=== PATIENT | male | born 1950 | race Two or more races ===

== ENCOUNTER 2019-10-28 23:30 | Emergency (ER) | payer MEDICARE, MEDICAID ==
[~2019-10-28] VITALS: Ht 175.3 cm; Wt 81.6 kg
[2019-10-29 01:31] VITALS: BP 113/83
[2019-10-29 03:32] LABS: Basophils # (auto) 0 uL; Basophils % (auto) 1.3 % (0.0-2.0); Eosinophils # (auto) 0.2 uL; Eosinophils % (auto) 4.7 % (0.0-7.0); Hematocrit 34.2 % (41.0-53.0); Hemoglobin 11.3 g/dL (13.5-17.5); Lymphocytes # (auto) 1.2 uL; Lymphocytes % (auto) 36.1 % (10.0-50.0); Mean Corpuscular Hemoglobin 27.9 pg (28.0-32.0); Mean Corpuscular Hgb Conc. 33.1 g/dL (32.0-36.0); Mean Corpuscular Volume 84.5 fL (80.0-100.0); Monocytes # (auto) 0.3 uL; Monocytes % (auto) 8.8 % (0.0-12.0); Neutrophils # (auto) 1.7 uL; Neutrophils % (auto) 49.1 % (37.0-80.0); Nucleated Red Blood Cells % 0.2 %; Platelet Count (auto) 185 10^3/uL (140-450); Red Blood Cells 4.05 10^6/uL (4.5-5.90); Red Cell Distribution Width 14.3 % (11.8-14.3); White Blood Cell 3.4 10^3/uL (4.4-10.8)
[2019-10-29 03:51] LABS: Calcium 8.6 mg/dL (8.5-10.1); Potassium 3.6 mmol/L (3.5-5.1)
[2019-10-29 03:53] LABS: BUN/Creatinine Ratio 11.4
[2019-10-29] MEDS ORDERED: SODIUM CHLORIDE 0.9% 1,000 ML IV SCH (04:38)
[2019-10-29] MEDS ORDERED: HYDROcodone-ACET 5/325MG TAB PO PRN (04:45)
[2019-10-29] MEDS ORDERED: ACETAMINOPHEN 325 MG TAB PO PRN (04:45)
[2019-10-29] MEDS ORDERED: ALUM & MAG HYDROX-SIMETH LIQ(MAALOX) 30 ML PO PRN (04:45)
[2019-10-29] MEDS ORDERED: LORazepam 0.5 MG TAB PO PRN (04:45)
[2019-10-29] MEDS ORDERED: DOCUSATE SOD 100 MG CAP PO PRN (04:45)
[2019-10-29] MEDS ORDERED: ONDANSETRON HCL 4 MG/2 ML VIAL IV PRN (04:45)
[2019-10-29] MEDS ORDERED: DEXTROSE (50%) 50ML SYRG IV PRN (04:45)
[2019-10-29] MEDS ORDERED: MORPHINE SULFATE 4 MG/ML SYR/VIAL IV PRN (04:45)
[2019-10-29] MEDS ORDERED: ACCU-CHEK COMFORT CURVE STRIP VI SCH (08:00)
[2019-10-29] MEDS ORDERED: InsuLIN REG 1unit/0.01ml Soln (100units/ml) SC SCH (08:00)
== END 2019-10-29 06:47 | disposition left against medical advice (07) ==
LOC: ER 23:42 → EDSEX 23:42 → ER 10-29 06:47
DX: N28.89 Other specified disorders of kidney and ureter (principal)
CPT/HCPCS: 36415; 74176; 80048; 83690; 83735; 84484; 85025

== ENCOUNTER 2021-12-13 22:29 | Emergency (ER) | payer MEDICARE, MEDICAID ==
[~2021-12-13] VITALS: Ht 167.6 cm; Wt 63.5 kg
[2021-12-13 22:30] VITALS: BP 164/95
== END 2021-12-14 06:51 | disposition left against medical advice (07) ==
LOC: EDBD 22:29 → ER 22:31
DX: M79.10 Myalgia, unspecified site (principal); Z53.21 Procedure and treatment not carried out due to patient leaving prior to being seen by health care provider; W01.0XXA Fall on same level from slipping, tripping and stumbling without subsequent striking against object, initial encounter; Y93.89 Activity, other specified; Y92.89 Other specified places as the place of occurrence of the external cause; Y99.8 Other external cause status

== ENCOUNTER 2023-03-06 12:44 | Inpatient (IN) | payer MEDICARE, MEDICAID ==
[~2023-03-06] VITALS: Ht 175.3 cm; Wt 81.5 kg
[~2023-03-06 12:44] MED LIST: CIPR500T4 PO
[2023-03-06 13:40] LABS: Urine Bacteria FEW /hpf (None Seen); Urine Blood Negative /uL (Negative); Urine Hyaline Cast FEW /lpf (0 - 2); Urine Specific Gravity 1.018 (1.001-1.035); Urine WBC 110 /hpf (0 - 3)
[2023-03-06 13:56] LABS: Eosinophils # (auto) 0.1 10 ^3/uL (0-0.8); Hemoglobin 9.8 g/dL (13.5-17.5); Monocytes # (auto) 0.4 10 ^3/uL (0-1.3); Monocytes % (auto) 6.5 % (0.0-12.0)
[2023-03-06 13:57] LABS: Basophils # (auto) 0.1 10 ^3/uL (0-0.2); Basophils % (auto) 1.1 % (0.0-2.0); Eosinophils % (auto) 1.9 % (0.0-7.0); Hematocrit 29.3 % (41.0-53.0); Lymphocytes # (auto) 1.3 10 ^3/uL (0.4-5.4); Lymphocytes % (auto) 21.4 % (10.0-50.0); Mean Corpuscular Hemoglobin 27.2 pg (28.0-32.0); Mean Corpuscular Hgb Conc. 33.6 g/dL (32.0-36.0); Mean Corpuscular Volume 80.9 fL (80.0-100.0); Neutrophils # (auto) 4.2 10 ^3/uL (1.6-8.6); Neutrophils % (auto) 69.1 % (37.0-80.0); Nucleated Red Blood Cells % 0.2 %; Red Blood Cells 3.62 10^6/uL (4.5-5.90); Red Cell Distribution Width 17.1 % (11.8-14.3); White Blood Cell 6.1 10^3/uL (4.4-10.8)
[2023-03-06] MEDS ORDERED: cefTRIAXone 1GM/50ML D5W 50 ML IV ONE (14:15)
[2023-03-06 14:35] LABS: Albumin 2.8 g/dL (3.4-5.0); Calcium 8.7 mg/dL (8.5-10.1); Potassium 3.8 mmol/L (3.5-5.1)
[2023-03-06 14:38] LABS: Bilirubin, Total 0.6 mg/dL (0.2-1.0); Total Protein 8.2 g/dL (6.4-8.2)
[2023-03-06] MEDS ORDERED: NITROGLYCERIN 0.4 MG SL TAB SL PRN (16:00)
[2023-03-06] MEDS ORDERED: HYDROcodone-ACET 5/325MG TAB PO PRN (16:00)
[2023-03-06] MEDS ORDERED: ACETAMINOPHEN 325 MG TAB PO PRN (16:00)
[2023-03-06] MEDS ORDERED: MORPHINE SULFATE INJ 2 MG/ml SYRG IV PRN ×2 (16:00)
[2023-03-06 17:15] LABS: Cholesterol 162 mg/dL (< 200); HDL Cholesterol 71 mg/dL (40-59); LDL Cholesterol 85 mg/dL (< 100); Triglycerides 76 mg/dL (< 150)
[2023-03-07 05:00] VITALS: BP 156/94
[2023-03-07 06:33] LABS: Basophils # (auto) 0 10 ^3/uL (0-0.2); Eosinophils # (auto) 0.2 10 ^3/uL (0-0.8); Eosinophils % (auto) 3.2 % (0.0-7.0); Hematocrit 26.7 % (41.0-53.0); Lymphocytes # (auto) 1.4 10 ^3/uL (0.4-5.4); Lymphocytes % (auto) 29.1 % (10.0-50.0); Mean Corpuscular Hemoglobin 27.3 pg (28.0-32.0); Mean Corpuscular Hgb Conc. 33.7 g/dL (32.0-36.0); Mean Corpuscular Volume 81.2 fL (80.0-100.0); Monocytes # (auto) 0.5 10 ^3/uL (0-1.3); Monocytes % (auto) 10.5 % (0.0-12.0); Neutrophils # (auto) 2.7 10 ^3/uL (1.6-8.6); Neutrophils % (auto) 56.2 % (37.0-80.0); Nucleated Red Blood Cells % 0.3 %; Red Blood Cells 3.29 10^6/uL (4.5-5.90); Red Cell Distribution Width 16.8 % (11.8-14.3); White Blood Cell 4.8 10^3/uL (4.4-10.8)
[2023-03-07 07:25] LABS: Albumin 2.6 g/dL (3.4-5.0); Calcium 8.2 mg/dL (8.5-10.1); Potassium 3.8 mmol/L (3.5-5.1)
[2023-03-07 07:28] LABS: BUN/Creatinine Ratio 14.8 (10.0-20.0); Bilirubin, Total 0.7 mg/dL (0.2-1.0); Total Protein 6.8 g/dL (6.4-8.2)
[2023-03-07] MEDS ORDERED: cefTRIAXone 1GM/50ML D5W 50 ML IV SCH (09:00)
[2023-03-07] MEDS ORDERED: ENOXAPARIN SOD 40 MG/0.4 ML SYRINGE SC SCH (10:00)
[2023-03-07] MEDS ORDERED: HALOPERIDOL LACTATE 5 MG/ML INJ VIAL ONE (10:52)
[2023-03-07] MEDS ORDERED: HALOPERIDOL LACTATE 5 MG/ML INJ VIAL IM PRN (11:00)
== END 2023-03-07 11:45 | disposition left against medical advice (07) | DRG 463 ==
LOC: ER 12:44 → OVERFLOW 16:28 → CENTRAL 20:48
PROVIDERS: ADMIT Registered Nurse; ATTEND Registered Nurse
DX: N30.00 Acute cystitis without hematuria (principal); F03.90 Unspecified dementia, unspecified severity, without behavioral disturbance, psychotic disturbance, mood disturbance, and anxiety; Z53.29 Procedure and treatment not carried out because of patient's decision for other reasons; Z59.00 Homelessness unspecified; Z91.199 Patient's noncompliance with other medical treatment and regimen due to unspecified reason
CPT/HCPCS: 36415; 80053; 80061; 81001; 83036; 84443; 85025; 87040; 87086; 87088; 87186; 96365; A4565; G0378; J0696

== ENCOUNTER 2023-06-06 16:08 | Inpatient (IN) | payer MEDICARE, MEDICAID ==
[~2023-06-06] VITALS: Ht 175.3 cm; Wt 71.3 kg
[2023-06-06 17:54] LABS: Urine Bacteria NONE SEEN /hpf (None Seen); Urine Blood Negative /uL (Negative); Urine Hyaline Cast FEW /lpf (0 - 2); Urine Mucus FEW (None Seen); Urine Specific Gravity 1.021 (1.001-1.035); Urine WBC 4 /hpf (0 - 3)
[2023-06-06 23:24] LABS: Basophils # (auto) 0.1 10 ^3/uL (0-0.2); Basophils % (auto) 0.9 % (0.0-2.0); Eosinophils # (auto) 0.2 10 ^3/uL (0-0.8); Eosinophils % (auto) 3.5 % (0.0-7.0); Hematocrit 38.4 % (41.0-53.0); Hemoglobin 12.6 g/dL (13.5-17.5); Lymphocytes # (auto) 1.5 10 ^3/uL (0.4-5.4); Lymphocytes % (auto) 21.8 % (10.0-50.0); Mean Corpuscular Hemoglobin 27.5 pg (28.0-32.0); Mean Corpuscular Hgb Conc. 32.8 g/dL (32.0-36.0); Monocytes # (auto) 0.6 10 ^3/uL (0-1.3); Monocytes % (auto) 9.2 % (0.0-12.0); Neutrophils # (auto) 4.3 10 ^3/uL (1.6-8.6); Neutrophils % (auto) 64.6 % (37.0-80.0); Red Blood Cells 4.57 10^6/uL (4.5-5.90); Red Cell Distribution Width 13.7 % (11.8-14.3); White Blood Cell 6.7 10^3/uL (4.4-10.8)
[2023-06-06 23:41] LABS: Albumin 3.9 g/dL (3.4-5.0); Calcium 9.7 mg/dL (8.5-10.1); Magnesium 2.4 mg/dL (1.6-2.6); Potassium 3.6 mmol/L (3.5-5.1)
[2023-06-06 23:44] LABS: BUN/Creatinine Ratio 16.5 (10.0-20.0); Bilirubin, Total 0.6 mg/dL (0.2-1.0); Total Protein 9.1 g/dL (6.4-8.2)
[2023-06-07] MEDS ORDERED: HYDROcodone-ACET 10/325MG TAB PO ONE (01:15)
[2023-06-07] MEDS ORDERED: ASPirin 325 MG TAB PO ONE (01:15)
[2023-06-07 06:26] VITALS: PULSE 76; RESP 20; O2SAT 96
[2023-06-07 07:30] VITALS: RESP 20
[2023-06-07] MEDS ORDERED: SODIUM CHLORIDE 0.9% 1,000 ML IV ONE (09:30)
[2023-06-07] MEDS ORDERED: ONDANSETRON HCL 4 MG/2 ML VIAL IV ONE (10:00)
[2023-06-07] MEDS ORDERED: MORPHINE SULFATE INJ 2 MG/ml SYRG IV ONE (10:00)
[2023-06-07 13:28] LABS: Urine Bacteria NONE SEEN /hpf (None Seen); Urine Blood TRACE /uL (Negative); Urine WBC 2 /hpf (0 - 3)
[2023-06-07] MEDS ORDERED: DOCUSATE SOD 100 MG CAP PO PRN (13:45)
[2023-06-07] MEDS ORDERED: NITROGLYCERIN 0.4 MG SL TAB SL PRN (13:45)
[2023-06-07] MEDS ORDERED: SODIUM CHLORIDE 0.9% 1,000 ML IV SCH (13:45)
[2023-06-07] MEDS ORDERED: MORPHINE SULFATE INJ 2 MG/ml SYRG IV PRN (13:45)
[2023-06-07] MEDS ORDERED: LISINOPRIL 10 MG TAB PO ONE (13:45)
[2023-06-07] MEDS ORDERED: hydrALAZINE HCL 20 MG/ML VL IV PRN (13:45)
[2023-06-07] MEDS ORDERED: PANTOPRAZOLE 40 MG/10 ML VIAL INJ IV ONE (14:15)
[2023-06-07] MEDS: HYDROcodone-ACET 5/325MG TAB PO PRN ×3 (14:36→20:56)
[2023-06-07 19:23] VITALS: BP 133/69; PULSE 62; RESP 15; TEMP 99; O2SAT 92
[2023-06-07] MEDS: ONDANSETRON HCL 4 MG/2 ML VIAL IV PRN ×2 (19:40→20:57)
[2023-06-08] MEDS ORDERED: LISINOPRIL 10 MG TAB PO SCH (10:00)
[2023-06-08] MEDS ORDERED: PANTOPRAZOLE 40 MG/10 ML VIAL INJ IV SCH (10:00)
[2023-06-08] MEDS ORDERED: AZIT1POW PO (11:27)
== END 2023-06-07 21:04 | disposition left against medical advice (07) | DRG 199 ==
LOC: EDBD → ER 16:08 → TELE 06-07 13:39 → TELE-WESTW 06-07 21:20 → TELE 06-07 22:11
PROVIDERS: ADMIT Nurse Practitioner Family; ATTEND Nurse Practitioner Family
DX: I16.0 Hypertensive urgency (principal); N17.9 Acute kidney failure, unspecified; F03.93 Unspecified dementia, unspecified severity, with mood disturbance; D64.9 Anemia, unspecified; E86.0 Dehydration; F31.9 Bipolar disorder, unspecified; R91.8 Other nonspecific abnormal finding of lung field; I12.9 Hypertensive chronic kidney disease with stage 1 through stage 4 chronic kidney disease, or unspecified chronic kidney disease; N18.9 Chronic kidney disease, unspecified; R62.7 Adult failure to thrive; Z68.23 Body mass index [BMI] 23.0-23.9, adult; Z53.29 Procedure and treatment not carried out because of patient's decision for other reasons; Z83.3 Family history of diabetes mellitus
CPT/HCPCS: 36415; 71045; 74176; 76705; 80053; 81001; 83735; 83880; 84484; 85025; 93005; C9113; G0378; J2405

== ENCOUNTER → 2023-06-07 | Emergency (ER) | payer MEDICARE, MEDICAID ==
[~2023-06-07] VITALS: Ht 175.3 cm; Wt 72.1 kg
[~2023-06-07] MED LIST changes: +AZIT1POW PO; -CIPR500T4 PO
[2023-06-07 23:30] VITALS: BP 172/106; PULSE 122; RESP 18; O2SAT 99
== END | disposition left against medical advice (07) ==
LOC: EDBD 23:06 → ER 23:06
DX: R07.81 Pleurodynia (principal); Z53.21 Procedure and treatment not carried out due to patient leaving prior to being seen by health care provider
CPT/HCPCS: 71101

== ENCOUNTER 2023-09-20 16:44 | Emergency (ER) | payer MEDICARE, MEDICAID ==
[~2023-09-20] VITALS: Ht 175.3 cm; Wt 75.0 kg
[2023-09-20 18:16] LABS: Alanine Aminotransferase 19 U/L (7-40); Albumin 4.5 g/dL (3.2-4.8); Alkaline Phosphatase 88 U/L (46-116); Anion Gap 7 (5-15); Aspartate Aminotransferase 28 U/L (13-40); BUN/Creatinine Ratio 13.5 (10.0-20.0); Bilirubin, Total 0.5 mg/dL (0.2-1.0); Blood Urea Nitrogen 17 mg/dL (9-23); Calcium 9.5 mg/dL (8.7-10.4); Carbon Dioxide 27 mmol/L (20-30); Chloride 106 mmol/L (98-107); Glucose 135 mg/dL (74-106); Potassium 3.9 mmol/L (3.5-5.1); Sodium 140 mmol/L (136-145); Total Protein 7.4 g/dL (5.7-8.2)
[2023-09-20 18:33] LABS: Basophils # (auto) 0 10 ^3/uL (0-0.2); Basophils % (auto) 0.8 % (0.0-2.0); Eosinophils # (auto) 0.2 10 ^3/uL (0-0.8); Eosinophils % (auto) 4.5 % (0.0-7.0); Hematocrit 31.8 % (41.0-53.0); Hemoglobin 10.6 g/dL (13.5-17.5); Lymphocytes # (auto) 1.3 10 ^3/uL (0.4-5.4); Lymphocytes % (auto) 25.2 % (10.0-50.0); Mean Corpuscular Hemoglobin 29.2 pg (28.0-32.0); Mean Corpuscular Hgb Conc. 33.3 g/dL (32.0-36.0); Mean Corpuscular Volume 87.8 fL (80.0-100.0); Monocytes # (auto) 0.4 10 ^3/uL (0-1.3); Monocytes % (auto) 7.3 % (0.0-12.0); Neutrophils # (auto) 3.1 10 ^3/uL (1.6-8.6); Neutrophils % (auto) 62.2 % (37.0-80.0); Nucleated Red Blood Cells % 0.2 %; Red Blood Cells 3.61 10^6/uL (4.5-5.90); Red Cell Distribution Width 18.8 % (11.8-14.3)
[2023-09-20 18:44] LABS: INR 0.96 (0.9-1.15); Partial Thromboplastin Time 25.6 SEC (24.5-34.5); Prothrombin Time 10.1 sec (9.3-11.8)
[2023-09-20 22:45] VITALS: BP 160/82; PULSE 66; RESP 16; TEMP 97.8; O2SAT 98
== END 2023-09-20 22:56 | disposition home or self-care (01) ==
LOC: ER 16:44
DX: D64.9 Anemia, unspecified (principal); R07.89 Other chest pain; R05.9 Cough, unspecified; R06.02 Shortness of breath; I12.9 Hypertensive chronic kidney disease with stage 1 through stage 4 chronic kidney disease, or unspecified chronic kidney disease; E11.22 Type 2 diabetes mellitus with diabetic chronic kidney disease; N18.9 Chronic kidney disease, unspecified; J44.9 Chronic obstructive pulmonary disease, unspecified; F03.90 Unspecified dementia, unspecified severity, without behavioral disturbance, psychotic disturbance, mood disturbance, and anxiety; Z98.890 Other specified postprocedural states; Z87.891 Personal history of nicotine dependence; Z79.899 Other long term (current) drug therapy
CPT/HCPCS: 36415; 71046; 80053; 84484; 85025; 85610; 85730; 93005

== ENCOUNTER → 2023-10-17 | Outpatient (CLI) | payer MEDICARE, MEDICAID | END | disposition home or self-care (01) | LOC: XYW 13:34 | PROVIDERS: ATTEND Student in an Organized Health Care Education/Training Program | DX: I35.1 Nonrheumatic aortic (valve) insufficiency (principal); R06.02 Shortness of breath; I27.20 Pulmonary hypertension, unspecified | CPT/HCPCS: 93306 ==

== ENCOUNTER → 2023-11-16 | Outpatient (CLI) | payer MEDICARE, MEDICAID ==
[2023-11-16 13:36] LABS: Basophils # (auto) 0 10 ^3/uL (0-0.2); Basophils % (auto) 0.7 % (0.0-2.0); Eosinophils # (auto) 0.2 10 ^3/uL (0-0.8); Eosinophils % (auto) 4.1 % (0.0-7.0); Hematocrit 32.5 % (41.0-53.0); Hemoglobin 10.8 g/dL (13.5-17.5); Lymphocytes # (auto) 1.3 10 ^3/uL (0.4-5.4); Mean Corpuscular Hemoglobin 28.6 pg (28.0-32.0); Mean Corpuscular Hgb Conc. 33.3 g/dL (32.0-36.0); Mean Corpuscular Volume 86.1 fL (80.0-100.0); Monocytes # (auto) 0.5 10 ^3/uL (0-1.3); Monocytes % (auto) 10.1 % (0.0-12.0); Neutrophils # (auto) 2.6 10 ^3/uL (1.6-8.6); Neutrophils % (auto) 57.1 % (37.0-80.0); Nucleated Red Blood Cells % 0.1 %; Red Blood Cells 3.78 10^6/uL (4.5-5.90); Red Cell Distribution Width 14.4 % (11.8-14.3); White Blood Cell 4.5 10^3/uL (4.4-10.8)
[2023-11-16 13:53] LABS: Triglycerides 83 mg/dL (< 150)
[2023-11-16 13:54] LABS: % Iron Saturation 20.6 % (20-55); LDL Cholesterol 107 mg/dL (< 100)
[2023-11-16 13:55] LABS: Cholesterol 167 mg/dL (< 200); HDL Cholesterol 51 mg/dL (40-59); Prostate Specific Antigen 0.55 ng/mL (0.0-4.0)
[2023-11-16 13:59] LABS: Ferritin 242.1 ng/mL (22-322); Folate (Folic Acid) 10.08 ng/mL (>5.38)
== END | disposition home or self-care (01) ==
LOC: LAB 13:06
PROVIDERS: ATTEND Internal Medicine
DX: Z12.5 Encounter for screening for malignant neoplasm of prostate (principal); Z11.59 Encounter for screening for other viral diseases; Z13.1 Encounter for screening for diabetes mellitus; Z13.0 Encounter for screening for diseases of the blood and blood-forming organs and certain disorders involving the immune mechanism; I12.9 Hypertensive chronic kidney disease with stage 1 through stage 4 chronic kidney disease, or unspecified chronic kidney disease; E11.22 Type 2 diabetes mellitus with diabetic chronic kidney disease; N18.31 Chronic kidney disease, stage 3a; E78.5 Hyperlipidemia, unspecified; D64.9 Anemia, unspecified
CPT/HCPCS: 36415; 80061; 82306; 82607; 82728; 82746; 83036; 83540; 83550; 84153; 85025; 86803

== ENCOUNTER → 2023-11-16 | Outpatient (CLI) | payer MEDICARE, MEDICAID ==
[~2023-11-16] VITALS: Ht 175.3 cm; Wt 73.9 kg
[~2023-11-16] MED LIST changes: +ADENOSINE 62 MG in GIVE UN-DILUTED 0 ML IV ONE
== END | disposition home or self-care (01) ==
LOC: XYW 10:53
PROVIDERS: ATTEND Student in an Organized Health Care Education/Training Program
DX: R06.02 Shortness of breath (principal)
CPT/HCPCS: 78452; 93017; A9500; J0153

== ENCOUNTER → 2023-12-12 | Outpatient (CLI) | payer MEDICARE, MEDICAID ==
[~2023-12-12] MED LIST changes: -ADENOSINE 62 MG in GIVE UN-DILUTED 0 ML IV ONE
[2023-12-12 13:13] LABS: Basophils # (auto) 0 10 ^3/uL (0-0.2); Basophils % (auto) 0.8 % (0.0-2.0); Eosinophils # (auto) 0.4 10 ^3/uL (0-0.8); Eosinophils % (auto) 9.4 % (0.0-7.0); Hematocrit 35.6 % (41.0-53.0); Hemoglobin 11.7 g/dL (13.5-17.5); Lymphocytes # (auto) 2.2 10 ^3/uL (0.4-5.4); Lymphocytes % (auto) 46.5 % (10.0-50.0); Mean Corpuscular Hgb Conc. 32.8 g/dL (32.0-36.0); Mean Corpuscular Volume 85.5 fL (80.0-100.0); Monocytes # (auto) 0.4 10 ^3/uL (0-1.3); Monocytes % (auto) 8.5 % (0.0-12.0); Neutrophils # (auto) 1.6 10 ^3/uL (1.6-8.6); Neutrophils % (auto) 34.8 % (37.0-80.0); Nucleated Red Blood Cells % 0.2 %; Red Blood Cells 4.16 10^6/uL (4.5-5.90); Red Cell Distribution Width 14.1 % (11.8-14.3); White Blood Cell 4.7 10^3/uL (4.4-10.8)
== END | disposition home or self-care (01) ==
LOC: LAB 12:58
PROVIDERS: ATTEND Internal Medicine
DX: Z12.11 Encounter for screening for malignant neoplasm of colon (principal); D50.9 Iron deficiency anemia, unspecified; I70.0 Atherosclerosis of aorta
CPT/HCPCS: 36415; 82274; 85025

== ENCOUNTER 2023-12-24 20:03 | Emergency (ER) | payer MEDICARE, MEDICAID ==
[~2023-12-24] VITALS: Ht 175.3 cm; Wt 74.9 kg
[2023-12-24] MEDS ORDERED: NAP500T GT (22:15)
[2023-12-24 22:47] VITALS: BP 133/92; PULSE 87; RESP 19; TEMP 98.5; O2SAT 99
== END 2023-12-24 22:50 | disposition home or self-care (01) ==
LOC: ER 20:03
DX: M25.512 Pain in left shoulder (principal); R53.1 Weakness; J44.9 Chronic obstructive pulmonary disease, unspecified; E11.22 Type 2 diabetes mellitus with diabetic chronic kidney disease; I12.9 Hypertensive chronic kidney disease with stage 1 through stage 4 chronic kidney disease, or unspecified chronic kidney disease; N18.9 Chronic kidney disease, unspecified
CPT/HCPCS: 73030

== ENCOUNTER 2024-05-20 17:08 | Inpatient (IN) | payer MEDICARE, MEDICAID ==
[~2024-05-20] VITALS: Ht 175.3 cm; Wt 76.2 kg
[~2024-05-20 17:08] MED LIST changes: +NAP500T GT
[2024-05-20 18:06] LABS: Basophils # (auto) 0.1 10 ^3/uL (0-0.2); Basophils % (auto) 1.3 % (0.0-2.0); Eosinophils # (auto) 0.1 10 ^3/uL (0-0.8); Eosinophils % (auto) 3.2 % (0.0-7.0); Hematocrit 38.1 % (41.0-53.0); Hemoglobin 12.7 g/dL (13.5-17.5); Lymphocytes # (auto) 1.4 10 ^3/uL (0.4-5.4); Lymphocytes % (auto) 30.6 % (10.0-50.0); Mean Corpuscular Hemoglobin 28.2 pg (28.0-32.0); Mean Corpuscular Hgb Conc. 33.3 g/dL (32.0-36.0); Mean Corpuscular Volume 84.9 fL (80.0-100.0); Monocytes # (auto) 0.3 10 ^3/uL (0-1.3); Monocytes % (auto) 6.6 % (0.0-12.0); Neutrophils # (auto) 2.6 10 ^3/uL (1.6-8.6); Neutrophils % (auto) 58.3 % (37.0-80.0); Red Cell Distribution Width 14.1 % (11.8-14.3); White Blood Cell 4.5 10^3/uL (4.4-10.8)
[2024-05-20 18:10] LABS: Urine Bacteria FEW /hpf (None Seen); Urine Blood TRACE /uL (Negative); Urine Clarity Clear (Clear); Urine Color Yellow (Yellow); Urine Mucus FEW (None Seen); Urine Protein, UAD TRACE (Negative); Urine Specific Gravity 1.024 (1.001-1.035); Urine Urobilinogen Normal (Negative); Urine WBC 3 /hpf (0 - 3)
[2024-05-20 18:21] LABS: Alanine Aminotransferase 27 U/L (7-40); Albumin 4.6 g/dL (3.2-4.8); Alkaline Phosphatase 68 U/L (46-116); Anion Gap 7 (5-15); Aspartate Aminotransferase 42 U/L (13-40); BUN/Creatinine Ratio 12.8 (10.0-20.0); Bilirubin, Total 0.6 mg/dL (0.2-1.0); Blood Urea Nitrogen 18 mg/dL (9-23); Calcium 10.4 mg/dL (8.7-10.4); Carbon Dioxide 27 mmol/L (20-30); Chloride 106 mmol/L (98-107); Glucose 137 mg/dL (74-106); Lipase 31 U/L (12-53); Potassium 3.9 mmol/L (3.5-5.1); Sodium 140 mmol/L (136-145); Total Protein 8.1 g/dL (5.7-8.2)
[2024-05-20 22:00] VITALS: PULSE 65; RESP 16; O2SAT 97
[2024-05-20] MEDS: SODIUM CHLORIDE 0.9% 1,000 ML IV ONE (22:01)
[2024-05-20] MEDS: ONDANSETRON HCL 4 MG/2 ML VIAL IV ONE (22:01)
[2024-05-20] MEDS: MORPHINE SULFATE 4 MG/ML SYR/VIAL IV ONE (22:02)
[2024-05-21] MEDS ORDERED: ONDANSETRON HCL 4 MG/2 ML VIAL IV PRN (01:45)
[2024-05-21] MEDS ORDERED: DOCUSATE SOD 100 MG CAP PO PRN (01:45)
[2024-05-21] MEDS ORDERED: DEXTROSE (50%) 50ML SYRG IV PRN (01:45)
[2024-05-21] MEDS ORDERED: MORPHINE SULFATE INJ 2 MG/ml SYRG IV PRN ×2 (01:45→04:00)
[2024-05-21] MEDS ORDERED: NITROGLYCERIN 0.4 MG SL TAB SL PRN (04:00)
[2024-05-21] MEDS: diphenhdrAMINE HCL 50 MG/1 ML VL IV ONE ×2 (04:11→14:09)
[2024-05-21] MEDS: LORazepam 2MG/ML-1ML VIAL IV ONE ×2 (04:11→14:09)
[2024-05-21 04:24] VITALS: PULSE 114; RESP 17; O2SAT 96
[2024-05-21] MEDS: SODIUM CHLOR 0.9% PF (SALINE LOCK) 10ML VIAL/SYR IV SCH (05:18)
[2024-05-21] MEDS: InsuLIN REG 1unit/0.01ml Soln (100units/ml) SC SCH (06:00)
[2024-05-21] MEDS: ACCU-CHEK COMFORT CURVE STRIP VI SCH (06:14)
[2024-05-21 06:56] LABS: Basophils # (auto) 0.1 10 ^3/uL (0-0.2); Eosinophils # (auto) 0.1 10 ^3/uL (0-0.8); Eosinophils % (auto) 1.5 % (0.0-7.0); Hematocrit 37.1 % (41.0-53.0); Hemoglobin 12.1 g/dL (13.5-17.5); Lymphocytes # (auto) 1.3 10 ^3/uL (0.4-5.4); Lymphocytes % (auto) 24.6 % (10.0-50.0); Mean Corpuscular Hemoglobin 28.3 pg (28.0-32.0); Mean Corpuscular Hgb Conc. 32.6 g/dL (32.0-36.0); Mean Corpuscular Volume 86.9 fL (80.0-100.0); Monocytes # (auto) 0.4 10 ^3/uL (0-1.3); Monocytes % (auto) 7.9 % (0.0-12.0); Neutrophils # (auto) 3.4 10 ^3/uL (1.6-8.6); Nucleated Red Blood Cells % 0.1 %; Red Blood Cells 4.27 10^6/uL (4.5-5.90); Red Cell Distribution Width 14.3 % (11.8-14.3); White Blood Cell 5.2 10^3/uL (4.4-10.8)
[2024-05-21 07:11] LABS: Alanine Aminotransferase 24 U/L (7-40); Albumin 4.3 g/dL (3.2-4.8); Alkaline Phosphatase 68 U/L (46-116); Anion Gap 8 (5-15); Aspartate Aminotransferase 38 U/L (13-40); BUN/Creatinine Ratio 8.6 (10.0-20.0); Bilirubin, Total 0.5 mg/dL (0.2-1.0); Blood Urea Nitrogen 11 mg/dL (9-23); Calcium 9.9 mg/dL (8.5-10.1); Carbon Dioxide 22 mmol/L (20-30); Chloride 108 mmol/L (98-107); Glucose 120 mg/dL (74-106); Potassium 3.9 mmol/L (3.5-5.1); Sodium 138 mmol/L (136-145); Total Protein 7.4 g/dL (5.7-8.2)
[2024-05-21] MEDS ORDERED: OYST1TAB OR (09:25)
[2024-05-21] MEDS ORDERED: FERR-7 PO (09:25)
[2024-05-21] MEDS ORDERED: AMLO1TAB23 PO (09:25)
[2024-05-21 10:00] VITALS: PULSE 78; RESP 14; O2SAT 95
[2024-05-21] MEDS: metroNIDAZOLE 500MG/100ML 100 ML IV ONE (10:46)
[2024-05-21] MEDS: levoFLOXacin 500MG 100 ML IV SCH (10:52)
[2024-05-21] MEDS: diphenhdrAMINE HCL 50 MG/1 ML VL IV PRN (16:24)
[2024-05-21] MEDS: LORazepam 2MG/ML-1ML VIAL IV PRN (16:24)
[2024-05-21] MEDS: HALOPERIDOL LACTATE 5 MG/ML INJ VIAL IM ONE (16:25)
[2024-05-21] MEDS: metroNIDAZOLE 500MG/100ML 100 ML IV SCH (16:49)
[2024-05-21 19:30] VITALS: PULSE 64; RESP 12; O2SAT 97
[2024-05-21] MEDS: D5W/SOD CHLO 0.9% 1,000 ML IV SCH (22:41)
[2024-05-22 06:01] LABS: Basophils # (auto) 0 10 ^3/uL (0-0.2); Basophils % (auto) 0.6 % (0.0-2.0); Eosinophils # (auto) 0.2 10 ^3/uL (0-0.8); Eosinophils % (auto) 3.5 % (0.0-7.0); Hemoglobin 12.2 g/dL (13.5-17.5); Lymphocytes # (auto) 1.2 10 ^3/uL (0.4-5.4); Lymphocytes % (auto) 26.4 % (10.0-50.0); Mean Corpuscular Hemoglobin 28.3 pg (28.0-32.0); Mean Corpuscular Hgb Conc. 32.8 g/dL (32.0-36.0); Mean Corpuscular Volume 86.1 fL (80.0-100.0); Monocytes # (auto) 0.6 10 ^3/uL (0-1.3); Monocytes % (auto) 13.2 % (0.0-12.0); Neutrophils # (auto) 2.6 10 ^3/uL (1.6-8.6); Neutrophils % (auto) 56.3 % (37.0-80.0); Nucleated Red Blood Cells % 0.3 %; Red Cell Distribution Width 14.1 % (11.8-14.3); White Blood Cell 4.7 10^3/uL (4.4-10.8)
[2024-05-22] MEDS: ACETAMINOPHEN 325 MG TAB PO PRN (06:17)
[2024-05-22 06:20] LABS: Alanine Aminotransferase 22 U/L (7-40); Albumin 4.2 g/dL (3.2-4.8); Alkaline Phosphatase 61 U/L (46-116); Anion Gap 5 (5-15); Aspartate Aminotransferase 40 U/L (13-40); BUN/Creatinine Ratio 9.4 (10.0-20.0); Blood Urea Nitrogen 12 mg/dL (9-23); Carbon Dioxide 28 mmol/L (20-30); Chloride 108 mmol/L (98-107); Glucose 91 mg/dL (74-106); Potassium 3.8 mmol/L (3.5-5.1); Sodium 141 mmol/L (136-145); Total Protein 7.2 g/dL (5.7-8.2)
[2024-05-22 09:00] VITALS: PULSE 77; RESP 19; O2SAT 94
[2024-05-22 10:00] VITALS: TEMP 98.6
[2024-05-22] MEDS: cefTRIAXone 1GM/50ML D5W 50 ML IV SCH (10:19)
[2024-05-22] MEDS: HYDROcodone-ACET 5/325MG TAB PO PRN (10:22)
[2024-05-22 12:15] VITALS: BP 121/75; PULSE 70; RESP 14; O2SAT 98
[2024-05-22] MEDS ORDERED: LEVO500T91 PO (13:11)
[2024-05-22] MEDS ORDERED: MET500T PO (13:11)
[2024-05-22] MEDS ORDERED: IBUP1TAB4 PO (14:51)
== END 2024-05-22 16:07 | disposition home or self-care (01) | DRG 249 ==
LOC: ER 17:08 → OVERFLOW 05-21 03:50
PROVIDERS: ADMIT Nurse Practitioner Family; ATTEND Internal Medicine
DX: A09 Infectious gastroenteritis and colitis, unspecified (principal); N17.0 Acute kidney failure with tubular necrosis; G93.41 Metabolic encephalopathy; F03.90 Unspecified dementia, unspecified severity, without behavioral disturbance, psychotic disturbance, mood disturbance, and anxiety; E11.22 Type 2 diabetes mellitus with diabetic chronic kidney disease; I12.9 Hypertensive chronic kidney disease with stage 1 through stage 4 chronic kidney disease, or unspecified chronic kidney disease; J44.9 Chronic obstructive pulmonary disease, unspecified; K80.20 Calculus of gallbladder without cholecystitis without obstruction; N18.9 Chronic kidney disease, unspecified; I25.2 Old myocardial infarction; Z83.3 Family history of diabetes mellitus; Z79.2 Long term (current) use of antibiotics; Z79.899 Other long term (current) drug therapy
CPT/HCPCS: 36415; 70450; 71045; 74176; 80053; 81001; 82607; 83036; 83605; 83690; 83880; 84443; 84484; 85025; 93005; 96361; 96374; 96375; G0378; J1956; J2405; J3490

== ENCOUNTER 2024-05-26 05:18 | Inpatient (IN) | payer MEDICARE, MEDICAID ==
[2024-05-26] VITALS (7 sets, daily range): BP systolic 125–169; BP diastolic 75–92; PULSE 18–89; RESP 16–18; TEMP 98.3–98.8; O2SAT 96–98
[~2024-05-26] VITALS: Ht 182.9 cm; Wt 77.2 kg
[~2024-05-26 05:18] MED LIST changes: +AMLO1TAB23 PO; -AZIT1POW PO; +FERR-7 PO; +IBUP1TAB4 PO; +LEVO500T91 PO; +MET500T PO; +OYST1TAB OR
[2024-05-26] MEDS: HALOPERIDOL LACTATE 5 MG/ML INJ VIAL IM ONE (06:30)
[2024-05-26] MEDS: LORazepam 2MG/ML-1ML VIAL IM ONE (06:30)
[2024-05-26] MEDS: LORazepam 2MG/ML-1ML VIAL ONE (06:30)
[2024-05-26] MEDS: HALOPERIDOL LACTATE 5 MG/ML INJ VIAL ONE (06:31)
[2024-05-26] MEDS: SODIUM CHLORIDE 0.9% 1,000 ML IV ONE (08:55)
[2024-05-26 09:42] LABS: Basophils # (auto) 0 10 ^3/uL (0-0.2); Basophils % (auto) 0.6 % (0.0-2.0); Eosinophils # (auto) 0 10 ^3/uL (0-0.8); Eosinophils % (auto) 0.7 % (0.0-7.0); Hemoglobin 12.3 g/dL (13.5-17.5); Lymphocytes # (auto) 0.7 10 ^3/uL (0.4-5.4); Lymphocytes % (auto) 15.2 % (10.0-50.0); Mean Corpuscular Hemoglobin 28.3 pg (28.0-32.0); Mean Corpuscular Hgb Conc. 33.3 g/dL (32.0-36.0); Mean Corpuscular Volume 85.1 fL (80.0-100.0); Monocytes # (auto) 0.5 10 ^3/uL (0-1.3); Monocytes % (auto) 11.3 % (0.0-12.0); Neutrophils # (auto) 3.4 10 ^3/uL (1.6-8.6); Neutrophils % (auto) 72.2 % (37.0-80.0); Nucleated Red Blood Cells % 0.3 %; Red Blood Cells 4.34 10^6/uL (4.5-5.90); Red Cell Distribution Width 13.7 % (11.8-14.3); White Blood Cell 4.7 10^3/uL (4.4-10.8)
[2024-05-26 09:57] LABS: Alanine Aminotransferase 20 U/L (7-40); Albumin 4.4 g/dL (3.2-4.8); Alkaline Phosphatase 63 U/L (46-116); Anion Gap 10 (5-15); Aspartate Aminotransferase 37 U/L (13-40); BUN/Creatinine Ratio 10.4 (10.0-20.0); Bilirubin, Total 0.8 mg/dL (0.2-1.0); Blood Urea Nitrogen 14 mg/dL (9-23); Calcium 9.8 mg/dL (8.5-10.1); Carbon Dioxide 23 mmol/L (20-30); Chloride 107 mmol/L (98-107); Glucose 91 mg/dL (74-106); Potassium 3.5 mmol/L (3.5-5.1); Sodium 140 mmol/L (136-145); Total Protein 7.3 g/dL (5.7-8.2)
[2024-05-26] MEDS: ASPirin 81 mg TAB PO ONE (10:11)
[2024-05-26] MEDS ORDERED: SODIUM CHLORIDE 0.9% 1,000 ML IV SCH (11:15)
[2024-05-26] MEDS ORDERED: ALBUTEROL SULF 2.5 MG/0.5ML(0.5%) NEB SOLN NEB PRN (11:15)
[2024-05-26] MEDS ORDERED: NITROGLYCERIN 0.4 MG SL TAB SL PRN (11:15)
[2024-05-26] MEDS ORDERED: IPRATROPIUM BROM 0.5 MG/2.5ML INH SOL NEB PRN (11:15)
[2024-05-26] MEDS ORDERED: ONDANSETRON HCL 4 MG/2 ML VIAL IV PRN (11:15)
[2024-05-26] MEDS ORDERED: DOCUSATE SOD 100 MG CAP PO PRN (11:15)
[2024-05-26] MEDS ORDERED: MORPHINE SULFATE INJ 2 MG/ml SYRG IV PRN (11:15)
[2024-05-26] MEDS: metroNIDAZOLE 500MG/100ML 100 ML IV ONE (11:40)
[2024-05-26] MEDS: PANTOPRAZOLE 40 MG/10 ML VIAL INJ IV ONE (11:41)
[2024-05-26] MEDS: DICYCLOMINE HCL (10MG/ML) 2 ML AMPULE IM ONE (11:41)
[2024-05-26 11:51] LABS: Lipase 24 U/L (12-53)
[2024-05-26] MEDS: cefTRIAXone 1GM/50ML D5W 50 ML IV ONE (12:52)
[2024-05-26 16:43] LABS: Urine Bacteria None Seen /hpf (None Seen)
[2024-05-26 17:07] LABS: Urine Blood 1+ /uL (Negative); Urine Clarity Clear (Clear); Urine Color Yellow (Yellow); Urine Mucus FEW (None Seen); Urine Protein, UAD 1+ (Negative); Urine Specific Gravity 1.022 (1.001-1.035); Urine Urobilinogen Normal (Negative); Urine WBC 2 /hpf (0 - 3)
[2024-05-26] MEDS: DICYCLOMINE HCL 10 MG CAP PO SCH (18:32)
[2024-05-26] MEDS: SODIUM CHLORIDE 0.9% 1,000 ML IV SCH (18:35)
[2024-05-26] MEDS: metroNIDAZOLE 500MG/100ML 100 ML IV SCH (21:02)
[2024-05-26] MEDS: METOCLOPRAMIDE HCL 5MG/ml INJ 2ml VIAL IV PRN (22:12)
[2024-05-26] MEDS: MORPHINE SULFATE INJ 2 MG/ml SYRG IV PRN (22:47)
[2024-05-27] VITALS (7 sets, daily range): BP systolic 131–160; BP diastolic 82–94; PULSE 60–80; RESP 17–18; TEMP 97.9–99.7; O2SAT 93–98
[2024-05-27] MEDS: ONDANSETRON HCL 4 MG/2 ML VIAL IV PRN (05:56)
[2024-05-27 06:36] LABS: Basophils # (auto) 0 10 ^3/uL (0-0.2); Basophils % (auto) 0.8 % (0.0-2.0); Eosinophils # (auto) 0.1 10 ^3/uL (0-0.8); Eosinophils % (auto) 2.5 % (0.0-7.0); Hematocrit 34.5 % (41.0-53.0); Hemoglobin 11.4 g/dL (13.5-17.5); Lymphocytes % (auto) 25.4 % (10.0-50.0); Mean Corpuscular Hemoglobin 27.9 pg (28.0-32.0); Mean Corpuscular Hgb Conc. 32.9 g/dL (32.0-36.0); Mean Corpuscular Volume 84.8 fL (80.0-100.0); Monocytes # (auto) 0.5 10 ^3/uL (0-1.3); Monocytes % (auto) 12.8 % (0.0-12.0); Neutrophils # (auto) 2.3 10 ^3/uL (1.6-8.6); Neutrophils % (auto) 58.5 % (37.0-80.0); Nucleated Red Blood Cells % 0.2 %; Red Blood Cells 4.08 10^6/uL (4.5-5.90); Red Cell Distribution Width 13.5 % (11.8-14.3); White Blood Cell 3.9 10^3/uL (4.4-10.8)
[2024-05-27 06:47] LABS: Alanine Aminotransferase 16 U/L (7-40); Albumin 4.1 g/dL (3.2-4.8); Alkaline Phosphatase 56 U/L (46-116); Anion Gap 10 (5-15); Aspartate Aminotransferase 39 U/L (13-40); BUN/Creatinine Ratio 8.4 (10.0-20.0); Blood Urea Nitrogen 11 mg/dL (9-23); Calcium 9.5 mg/dL (8.5-10.1); Carbon Dioxide 22 mmol/L (20-30); Chloride 109 mmol/L (98-107); Glucose 74 mg/dL (74-106); Potassium 3.6 mmol/L (3.5-5.1); Sodium 141 mmol/L (136-145)
[2024-05-27 06:48] LABS: Bilirubin, Total 0.8 mg/dL (0.2-1.0); Total Protein 6.7 g/dL (5.7-8.2)
[2024-05-27] MEDS: cefTRIAXone 1GM/50ML D5W 50 ML IV SCH (09:43)
[2024-05-27] MEDS: PANTOPRAZOLE 40 MG/10 ML VIAL INJ IV SCH (09:44)
[2024-05-27] MEDS: amLODIPine BESYLATE 5 MG TAB PO SCH (13:02)
[2024-05-27] MEDS: LORazepam 2MG/ML-1ML VIAL IV PRN (23:03)
[2024-05-28 05:00] VITALS: BP 162/98; PULSE 81; RESP 18; TEMP 97.7; O2SAT 95
[2024-05-28 06:50] VITALS: O2SAT 99
[2024-05-28 09:16] VITALS: BP 162/105; PULSE 77; RESP 18; TEMP 98.3; O2SAT 97
[2024-05-28] MEDS ORDERED: LORazepam 2MG/ML-1ML VIAL IV ONE (10:00)
[2024-05-28 13:28] VITALS: BP 153/87; PULSE 76; RESP 18; TEMP 98; O2SAT 97
[2024-05-28 14:45] LABS: Basophils # (auto) 0.1 10 ^3/uL (0-0.2); Basophils % (auto) 1.3 % (0.0-2.0); Eosinophils # (auto) 0.2 10 ^3/uL (0-0.8); Eosinophils % (auto) 3.1 % (0.0-7.0); Hematocrit 34.7 % (41.0-53.0); Hemoglobin 12.1 g/dL (13.5-17.5); Lymphocytes # (auto) 1.3 10 ^3/uL (0.4-5.4); Lymphocytes % (auto) 23.5 % (10.0-50.0); Mean Corpuscular Hemoglobin 29.4 pg (28.0-32.0); Mean Corpuscular Hgb Conc. 34.8 g/dL (32.0-36.0); Mean Corpuscular Volume 84.5 fL (80.0-100.0); Monocytes # (auto) 0.6 10 ^3/uL (0-1.3); Monocytes % (auto) 11.1 % (0.0-12.0); Neutrophils # (auto) 3.4 10 ^3/uL (1.6-8.6); Red Blood Cells 4.11 10^6/uL (4.5-5.90); Red Cell Distribution Width 13.6 % (11.8-14.3); White Blood Cell 5.6 10^3/uL (4.4-10.8)
[2024-05-28] MEDS: PIPERACILLIN-TAZOB 3.375GM 100 ML IV SCH (14:55)
[2024-05-28 15:31] LABS: Anion Gap 15 (5-15); Carbon Dioxide 17 mmol/L (20-30); Chloride 107 mmol/L (98-107); Potassium 3.4 mmol/L (3.5-5.1); Sodium 139 mmol/L (136-145)
[2024-05-28 15:32] LABS: Calcium 9.9 mg/dL (8.7-10.4)
[2024-05-28 15:37] LABS: BUN/Creatinine Ratio 7.6 (10.0-20.0); Blood Urea Nitrogen 10 mg/dL (9-23); Glucose 120 mg/dL (74-106)
[2024-05-28] MEDS: HALOPERIDOL LACTATE 5 MG/ML INJ VIAL IM PRN (18:46)
[2024-05-28] MEDS: POTASSIUM EFFERVESENT TAB 25 MEQ GT ONE (19:15)
[2024-05-28] MEDS ORDERED: LIDOCAINE 5% TOPICAL PATCH TOP ONE (20:30)
[2024-05-28] MEDS: HALOPERIDOL LACTATE 5 MG/ML INJ VIAL IM ONE (21:16)
[2024-05-28] MEDS: DONEPEZIL HYDROCHLORIDE 5 MG TAB PO SCH (22:00)
[2024-05-28 22:17] VITALS: O2SAT 97
[2024-05-29 03:30] VITALS: BP 153/87; PULSE 76; RESP 20; O2SAT 97
[2024-05-29 09:00] VITALS: BP 152/97; PULSE 77; RESP 16; TEMP 97.9; O2SAT 97
[2024-05-29 10:08] LABS: Basophils # (auto) 0 10 ^3/uL (0-0.2); Basophils % (auto) 0.9 % (0.0-2.0); Eosinophils # (auto) 0.2 10 ^3/uL (0-0.8); Eosinophils % (auto) 4.2 % (0.0-7.0); Hematocrit 35.2 % (41.0-53.0); Lymphocytes % (auto) 26.1 % (10.0-50.0); Mean Corpuscular Hemoglobin 28.4 pg (28.0-32.0); Mean Corpuscular Hgb Conc. 33.9 g/dL (32.0-36.0); Mean Corpuscular Volume 83.6 fL (80.0-100.0); Monocytes # (auto) 0.4 10 ^3/uL (0-1.3); Monocytes % (auto) 10.3 % (0.0-12.0); Neutrophils # (auto) 2.3 10 ^3/uL (1.6-8.6); Neutrophils % (auto) 58.5 % (37.0-80.0); Nucleated Red Blood Cells % 0.4 %; Red Blood Cells 4.21 10^6/uL (4.5-5.90); Red Cell Distribution Width 13.9 % (11.8-14.3); White Blood Cell 3.9 10^3/uL (4.4-10.8)
[2024-05-29 10:21] LABS: Chloride 107 mmol/L (98-107); Sodium 141 mmol/L (136-145)
[2024-05-29 10:22] LABS: Anion Gap 10 (5-15); Calcium 9.8 mg/dL (8.5-10.1); Carbon Dioxide 24 mmol/L (20-30)
[2024-05-29] MEDS ORDERED: DONE5TAB11 PO (10:23)
[2024-05-29] MEDS ORDERED: AMOX500T86 PO (10:23)
[2024-05-29 10:27] LABS: BUN/Creatinine Ratio 7.9 (10.0-20.0); Blood Urea Nitrogen 10 mg/dL (9-23); Glucose 99 mg/dL (74-106)
[2024-05-29 11:19] VITALS: BP 152/97; PULSE 77; RESP 16; TEMP 97.9; O2SAT 97
[2024-05-29] MEDS ORDERED: QUET50TA PO (11:43)
== END 2024-05-29 11:32 | disposition home or self-care (01) | DRG 248 ==
LOC: ER 05:18 → EDBD 05:18 → OVERFLOW 11:11 → EAST 17:41
PROVIDERS: ADMIT Internal Medicine; ATTEND Emergency Medicine
DX: A04.9 Bacterial intestinal infection, unspecified (principal); G92.8 Other toxic encephalopathy; N17.9 Acute kidney failure, unspecified; K80.00 Calculus of gallbladder with acute cholecystitis without obstruction; D69.6 Thrombocytopenia, unspecified; E86.0 Dehydration; E11.22 Type 2 diabetes mellitus with diabetic chronic kidney disease; N18.9 Chronic kidney disease, unspecified; F03.90 Unspecified dementia, unspecified severity, without behavioral disturbance, psychotic disturbance, mood disturbance, and anxiety; D64.9 Anemia, unspecified; J44.9 Chronic obstructive pulmonary disease, unspecified; E87.6 Hypokalemia; M13.811 Other specified arthritis, right shoulder; I12.9 Hypertensive chronic kidney disease with stage 1 through stage 4 chronic kidney disease, or unspecified chronic kidney disease; Z79.899 Other long term (current) drug therapy; Z83.3 Family history of diabetes mellitus; E11.65 Type 2 diabetes mellitus with hyperglycemia
CPT/HCPCS: 36415; 74176; 76775; 80048; 80053; 81001; 83605; 83690; 84484; 85025; 87040; 87045; 87427; 87493; 93005; 96361; 96365; 96367; 96372; 96375; 99291; G0378; J2405; J2470; J2543; J3490

== ENCOUNTER 2024-08-08 22:47 | Inpatient (IN) | payer MEDICARE, MEDICAID ==
[~2024-08-08] VITALS: Ht 175.3 cm; Wt 75.4 kg
[~2024-08-08 22:47] MED LIST changes: +AMOX500T86 PO; +DONE5TAB11 PO; -LEVO500T91 PO; -MET500T PO; +QUET50TA PO
[2024-08-08 23:45] LABS: Basophils # (auto) 0.1 10 ^3/uL (0-0.2); Basophils % (auto) 0.7 % (0.0-2.0); Eosinophils # (auto) 0.1 10 ^3/uL (0-0.8); Eosinophils % (auto) 0.4 % (0.0-7.0); Hematocrit 39.4 % (41.0-53.0); Hemoglobin 13.2 g/dL (13.5-17.5); Lymphocytes # (auto) 0.8 10 ^3/uL (0.4-5.4); Lymphocytes % (auto) 6.4 % (10.0-50.0); Mean Corpuscular Hemoglobin 28.9 pg (28.0-32.0); Mean Corpuscular Hgb Conc. 33.6 g/dL (32.0-36.0); Mean Corpuscular Volume 86.2 fL (80.0-100.0); Monocytes # (auto) 0.7 10 ^3/uL (0-1.3); Monocytes % (auto) 5.2 % (0.0-12.0); Neutrophils # (auto) 11.6 10 ^3/uL (1.6-8.6); Neutrophils % (auto) 87.3 % (37.0-80.0); Nucleated Red Blood Cells % 0.1 %; Platelet Count (auto) 165 10^3/uL (140-450); Red Blood Cells 4.57 10^6/uL (4.5-5.90); Red Cell Distribution Width 15.1 % (11.8-14.3); White Blood Cell 13.3 10^3/uL (4.4-10.8)
[2024-08-08 23:58] LABS: Chloride 106 mmol/L (98-107); Potassium 3.9 mmol/L (3.5-5.1); Sodium 140 mmol/L (136-145)
[2024-08-08 23:59] LABS: Anion Gap 14 (5-15); Carbon Dioxide 20 mmol/L (20-30)
[2024-08-09] LABS: Calcium 10.3 mg/dL (8.7-10.4)
[2024-08-09 00:04] LABS: BUN/Creatinine Ratio 19.6 (10.0-20.0); Blood Urea Nitrogen 27 mg/dL (9-23); Glucose 63 mg/dL (74-106)
[2024-08-09] MEDS: ASPirin 81 mg TAB PO ONE (02:00)
[2024-08-09 02:37] VITALS: PULSE 70; RESP 17; O2SAT 97
[2024-08-09 02:40] LABS: Alanine Aminotransferase 21 U/L (7-40); Albumin 4.9 g/dL (3.2-4.8); Alkaline Phosphatase 73 U/L (46-116); Anion Gap 16 (5-15); Aspartate Aminotransferase 57 U/L (13-40); BUN/Creatinine Ratio 18.5 (10.0-20.0); Blood Urea Nitrogen 25 mg/dL (9-23); Calcium 10.2 mg/dL (8.7-10.4); Carbon Dioxide 16 mmol/L (20-30); Chloride 107 mmol/L (98-107); Glucose 66 mg/dL (74-106); Magnesium 1.9 mg/dL (1.6-2.6); Sodium 139 mmol/L (136-145)
[2024-08-09 02:41] LABS: Bilirubin, Total 1.3 mg/dL (0.2-1.0); Total Protein 8.3 g/dL (5.7-8.2)
[2024-08-09 03:11] LABS: Triglycerides 75 mg/dL (< 150)
[2024-08-09 03:12] LABS: LDL Cholesterol 116 mg/dL (< 100)
[2024-08-09 03:13] LABS: Cholesterol 180 mg/dL (< 200); HDL Cholesterol 52 mg/dL (40-59)
[2024-08-09 03:37] LABS: COVID19 ANTIGEN SOFIA FIA NEGATIVE (NEGATIVE); Rapid Influenza A Negative (Negative); Rapid Influenza B Negative (Negative)
[2024-08-09] MEDS ORDERED: ONDANSETRON HCL 4 MG/2 ML VIAL IV PRN (04:30)
[2024-08-09] MEDS ORDERED: NITROGLYCERIN 0.4 MG SL TAB SL PRN (04:30)
[2024-08-09] MEDS ORDERED: MORPHINE SULFATE INJ 2 MG/ml SYRG IV PRN (04:30)
[2024-08-09] MEDS ORDERED: ACETAMINOPHEN 325 MG TAB PO PRN (04:30)
[2024-08-09] MEDS: SODIUM CHLOR 0.9% PF (SALINE LOCK) 10ML VIAL/SYR IV SCH (06:13)
[2024-08-09 07:43] VITALS: PULSE 80; RESP 16; O2SAT 98
[2024-08-09 09:00] VITALS: BP 116/75; PULSE 82; RESP 17; TEMP 98.7; O2SAT 98
[2024-08-09] MEDS: ENOXAPARIN SOD 40 MG/0.4 ML SYRINGE SC SCH (10:00)
[2024-08-09] MEDS: ASPirin 81 mg TAB PO SCH (10:00)
[2024-08-09] MEDS: amLODIPine BESYLATE 5 MG TAB PO SCH (10:00)
[2024-08-09 10:31] VITALS: BP 116/75; PULSE 82; RESP 17; TEMP 98.7; O2SAT 98
[2024-08-09 10:49] LABS: Basophils # (auto) 0 10 ^3/uL (0-0.2); Basophils % (auto) 0.6 % (0.0-2.0); Eosinophils # (auto) 0 10 ^3/uL (0-0.8); Eosinophils % (auto) 0.5 % (0.0-7.0); Hemoglobin 11.5 g/dL (13.5-17.5); Lymphocytes # (auto) 1.6 10 ^3/uL (0.4-5.4); Lymphocytes % (auto) 20.2 % (10.0-50.0); Mean Corpuscular Hemoglobin 28.7 pg (28.0-32.0); Mean Corpuscular Hgb Conc. 33.9 g/dL (32.0-36.0); Mean Corpuscular Volume 84.6 fL (80.0-100.0); Monocytes # (auto) 0.6 10 ^3/uL (0-1.3); Monocytes % (auto) 7.9 % (0.0-12.0); Neutrophils # (auto) 5.7 10 ^3/uL (1.6-8.6); Neutrophils % (auto) 70.8 % (37.0-80.0); Nucleated Red Blood Cells % 0.1 %; Platelet Count (auto) 169 10^3/uL (140-450); Red Blood Cells 4.02 10^6/uL (4.5-5.90); Red Cell Distribution Width 14.9 % (11.8-14.3); White Blood Cell 8.1 10^3/uL (4.4-10.8)
[2024-08-09 12:18] VITALS: BP 155/92; PULSE 100; RESP 20; TEMP 98.7; O2SAT 99
[2024-08-09] MEDS ORDERED: QUEtiapine FUMARATE 25 MG TAB PO ONE (14:45)
[2024-08-09] MEDS ORDERED: ERGOCALCIFEROL 50,000 UNIT(1.25MG) CAP PO SCH (15:30)
[2024-08-09] MEDS ORDERED: ATORVASTATIN 20 MG TAB PO SCH (22:00)
[2024-08-09] MEDS ORDERED: QUEtiapine FUMARATE 25 MG TAB PO SCH (22:00)
[2024-08-09] MEDS ORDERED: DONEPEZIL HYDROCHLORIDE 5 MG TAB PO SCH ×2 (22:00)
== END 2024-08-09 15:22 | disposition left against medical advice (07) | DRG 190 ==
LOC: ER 22:47 → EDBD 22:47 → TELE 08-09 04:32 → TELE-WESTW 08-09 08:47
PROVIDERS: ADMIT Nurse Practitioner; ATTEND Internal Medicine Geriatric Medicine
DX: I21.4 Non-ST elevation (NSTEMI) myocardial infarction (principal); G93.41 Metabolic encephalopathy; E11.22 Type 2 diabetes mellitus with diabetic chronic kidney disease; F03.90 Unspecified dementia, unspecified severity, without behavioral disturbance, psychotic disturbance, mood disturbance, and anxiety; Z53.29 Procedure and treatment not carried out because of patient's decision for other reasons; I12.9 Hypertensive chronic kidney disease with stage 1 through stage 4 chronic kidney disease, or unspecified chronic kidney disease; J44.9 Chronic obstructive pulmonary disease, unspecified; N18.30 Chronic kidney disease, stage 3 unspecified; Z83.3 Family history of diabetes mellitus; Z79.4 Long term (current) use of insulin; Z79.899 Other long term (current) drug therapy; I24.9 Acute ischemic heart disease, unspecified
CPT/HCPCS: 36415; 71045; 80048; 80053; 80061; 82306; 82962; 83735; 84443; 84484; 85025; 87426; 87804; 93306; G0378

== ENCOUNTER 2025-03-18 23:31 | Inpatient (IN) | payer OTHER, MEDICAID ==
[~2025-03-18] VITALS: Ht 175.3 cm; Wt 77.3 kg
[2025-03-19] MEDS: KETOROLAC TROMETH 30 MG/ML 1ML VIAL IM ONE
[2025-03-19 00:18] LABS: Basophils # (auto) 0.1 10 ^3/uL (0-0.2); Basophils % (auto) 0.6 % (0.0-2.0); Eosinophils # (auto) 0.1 10 ^3/uL (0-0.8); Hematocrit 37.8 % (41.0-53.0); Hemoglobin 12.5 g/dL (13.5-17.5); Lymphocytes # (auto) 0.9 10 ^3/uL (0.4-5.4); Lymphocytes % (auto) 9.9 % (10.0-50.0); Mean Corpuscular Hemoglobin 28.7 pg (28.0-32.0); Mean Corpuscular Hgb Conc. 33.1 g/dL (32.0-36.0); Mean Corpuscular Volume 86.7 fL (80.0-100.0); Monocytes # (auto) 0.7 10 ^3/uL (0-1.3); Monocytes % (auto) 7.9 % (0.0-12.0); Neutrophils % (auto) 80.6 % (37.0-80.0); Nucleated Red Blood Cells % 0.3 %; Platelet Count (auto) 180 10^3/uL (140-450); Red Blood Cells 4.37 10^6/uL (4.5-5.90); Red Cell Distribution Width 14.6 % (11.8-14.3); White Blood Cell 8.7 10^3/uL (4.4-10.8)
[2025-03-19 00:32] LABS: Alanine Aminotransferase 21 U/L (7-40); Alkaline Phosphatase 74 U/L (46-116); Anion Gap 9 (5-15); Bilirubin, Total 0.9 mg/dL (0.2-1.0); Blood Urea Nitrogen 17 mg/dL (9-23); Calcium 10.2 mg/dL (8.7-10.4); Carbon Dioxide 24 mmol/L (20-31); Glucose 95 mg/dL (74-106); Sodium 141 mmol/L (136-145); Total Protein 7.9 g/dL (5.7-8.2)
[2025-03-19 00:33] LABS: Albumin 4.9 g/dL (3.2-4.8); Aspartate Aminotransferase 48 U/L (13-40); Chloride 108 mmol/L (98-107)
--- NOTE | 2025-03-19 01:25 | DVH ---
CHEST RADIOGRAPH Indication: cp Technique: Single frontal view of the chest was obtained COMPARISON: XY CHEST XRAY 1 VIEW on DOS: 08/08/24 FINDINGS: Lines and Tubes: None Lungs: Clear Pleura: No effusion. No pneumothorax. Cardiomediastinal contours: Unremarkable Bones: Unremarkable IMPRESSION: No acute disease.
--- NOTE | 2025-03-19 01:45 | ECG ---
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
--- NOTE | 2025-03-19 02:16 | ED.PDOC ---
History of Present Illness HPI Comments 74-year-old male complaining of body pain which started today. States he has been having intermittent cough with no phlegm. Intermittent chills. States he noticed his blood pressure was high at home. Nothing makes it better, nothing makes it worse. No nausea no vomiting no diarrhea. Chief Complaint: Body Pain Time Seen by MD: 23:42 Primary Care Provider: DEVIN Aranda Notes: Nurses Notes Allergies: Coded Allergies: NO KNOWN ALLERGIES (Unverified , 10/29/19) Home Meds Active Scripts Quetiapine Fumerate (Seroquel) 50 Mg Tab, 1 TAB PO QPM for 30 Days, #30 TAB 1 Refill Prov:KETAN TRAN MD 05/29/24 Donepezil Hydrochloride (Aricept) 5 Mg Tab, 5 MG PO QPM for 30 Days, #30 TAB 2 Refills Prov:KETAN TRAN MD 05/29/24 Amoxicillin & Pot Clavulanate (Augmentin) 500 Mg Tab, 1 TAB PO BID for 7 Days, #14 TAB Prov:KETAN TRAN MD 05/29/24 Ibuprofen Micronized (Ibuprofen) 400 Mg Tab, 400 MG PO BIDP PRN for 15 Days, #30 TAB Prov:KETAN TRAN MD 05/22/24 Naproxen (NAPROSYN TABLET) 500 Mg Tb, 500 MG GT BID PRN for 10 Days, #20 TAB Prov:REUBEN BAEZA MD 12/24/23 Reported Medications Ferrous Sulfate (Iron) 325 Mg Tab, 325 MG PO DAILY, TAB 05/21/24 Oyster Shell (OYSTER SHELL CALCIUM 500) 500 Mg Tab, 500 MG OR DAILY, TAB 05/21/24 Amlodipine Besylate (Amlodipine Besylate) 10 Mg Tab, 1 TAB PO DAILY, #30 TAB 5 Refills 05/21/24 Information Source: Patient Mode of Arrival: Ambulatory Past Medical History PAST MEDICAL HISTORY: CKF, COPD, Dementia, DM, HTN Surgical History: Denies all surgeries Family History Family History: Reviewed,noncontributory to illness, Family hx of DM Family History (Other): CKD Social History Smoker: Non-Smoker, Other Alcohol: Denies ETOH Use Drugs: Denies Drug Use Lives In: Home Constitutional: denies: chills, diaphoresis, fatigue, fever, malaise, sweats, weakness, others EENTM: reports: nose congestion; denies: blurred vision, double vision, ear bleeding, ear discharge, ear drainage, ear pain, ear ringing, eye pain, eye redness, hearing loss, mouth pain, mouth swelling, nasal discharge, nose bleeding, nose pain, photophobia, tearing, throat pain, throat swelling, voice changes, others Respiratory: reports: cough, shortness of breath; denies: hemoptysis, orthopnea, SOB at rest, SOB with excertion, stridor, wheezing, others Cardiovascular: denies: chest pain, dizzy spells, diaphoresis, Dyspnea on exertion, edema, irregular heart beat, left arm pain, lightheadedness, palpitations, PND, syncope, others Gastrointestinal: denies: abdomen distended, abdominal pain, blood streaked bowels, constipated, diarrhea, dysphagia, difficulty swallowing, hematemesis, melena, nausea, poor appetite, poor fluid intake, rectal bleeding, rectal pain, vomiting, others Genitourinary: denies: burning, dysuria, flank pain, frequency, hematuria, incontinence, penile discharge, penile sore, pain, testicle pain, testicle swelling, urgency, others Neurological: denies: dizziness, fainting, headache, left sided numbness, left sided weakness, numbness, paresthesia, pre-existing deficit, right sided numbness, right sided weakness, seizure, speech problems, tingling, tremors, weakness, others Musculoskeletal: denies: back pain, gout, joint pain, joint swelling, muscle pain, muscle stiffness, neck pain, others Integumetry: denies: bruises, change in color, change in hair/nails, dryness, laceration, lesions, lumps, rash, wounds, others Allergic/Immunocompromised: denies: Difficulty Healing, Frequent Infections, Hives, Itching, others Hematologic/Lymphatic: denies: anemia, blood clots, easy bleeding, easy bruising, swollen glands, others Endocrine: denies: excessive hunger, excessive sweating, excessive thirst, excessive urination, flushing, intolerance to cold, intolerance to heat, unexplained weight gain, unexplained weight loss, others Psychiatric: denies: anxiety, bipolar disorder, depression, hopeless, panic disorder, schizophrenia, sleepless, suicidal, others Physical Exam General Appearance: No Apparent Distress, Normal HEENT: Normal ENT Inspection, Pharynx Normal, TMs Normal Neck: Full Range of Motion, Non-Tender, Normal, Normal Inspection Respiratory: Chest Non-Tender, Lungs Clear, No Accessory Muscle Use, No Respiratory Distress, Normal Breath Sounds Cardiovascular: No Edema, No JVD, No Murmur, No Gallop, Normal Peripheral Pulses, Regular Rate/Rhythm Breast Exam: Deferred Gastrointestinal: No Organomegaly, Non Tender, No Pulsatile Mass, Normal Bowel Sounds, Soft Genitalia: Deferred Pelvic: Deferred Rectal: Deferred Extremities: No calf tenderness, Normal capillary refill, Normal inspection, Normal range of motion, Non-tender, No pedal edema Musculoskeletal : Apperance: Normal Neurologic: Alert, director records management II-XII nml as Tested, No Motor Deficits, Normal Affect, Normal Mood, No Sensory Deficits Cerebellar Function: Normal Reflexes: Normal Skin: Dry, Normal Color, Warm Lymphatic: No Adenopathy Was a procedure done? Was a procedure done?: No Differential Dx Considerations may include: CAD, MD, ACS, pneumonia, X-Ray, Labs, Meds, VS Vital Signs Date Time Temp Pulse Resp B/P (MAP) Pulse Ox O2 Delivery O2 Flow Rate FiO2 03/18/25 23:45 99.1 88 18 161/106 (124) 98 99.1 Lab Test 03/19/25 01:20 03/19/25 00:01 Range/Units Troponin I High Sensitivity Pending 110 *H </=54 ng/L White Blood Count 8.7 4.4-10.8 10^3/uL Red Blood Count 4.37 L 4.5-5.90 10^6/uL Hemoglobin 12.5 L 13.5-17.5 g/dL Hematocrit 37.8 L 41.0-53.0 % Mean Corpuscular Volume 86.7 80.0-100.0 fL Mean Corpuscular Hemoglobin 28.7 28.0-32.0 pg Mean Corpuscular Hemoglobin Concent 33.1 32.0-36.0 g/dL Red Cell Distribution Width 14.6 H 11.8-14.3 % Platelet Count 180 140-450 10^3/uL Mean Platelet Volume 7.9 6.9-10.8 fL Neutrophils (%) (Auto) 80.6 H 37.0-80.0 % Lymphocytes (%) (Auto) 9.9 L 10.0-50.0 % Monocytes (%) (Auto) 7.9 0.0-12.0 % Eosinophils (%) (Auto) 1.0 0.0-7.0 % Basophils (%) (Auto) 0.6 0.0-2.0 % Neutrophils # (Auto) 7.0 1.6-8.6 10 ^3/uL Lymphocytes # (Auto) 0.9 0.4-5.4 10 ^3/uL Monocytes # (Auto) 0.7 0-1.3 10 ^3/uL Eosinophils # (Auto) 0.1 0-0.8 10 ^3/uL Basophils # (Auto) 0.1 0-0.2 10 ^3/uL Nucleated Red Blood Cells 0.3 % Sodium Level 141 136-145 mmol/L Potassium Level 4.0 3.5-5.1 mmol/L Chloride Level 108 H 98-107 mmol/L Carbon Dioxide Level 24 20-31 mmol/L Anion Gap 9 5-15 Blood Urea Nitrogen 17 9-23 mg/dL Creatinine 1.21 0.700-1.30 mg/dL Glomerular Filtration Rate Calc 62 >90 mL/min BUN/Creatinine Ratio 14.0 10.0-20.0 Serum Glucose 95 74-106 mg/dL Calcium Level 10.2 8.7-10.4 mg/dL Total Bilirubin 0.9 0.2-1.0 mg/dL Aspartate Amino Transferase (AST) 48 H 13-40 U/L Alanine Aminotransferase (ALT) 21 7-40 U/L Alkaline Phosphatase 74 46-116 U/L B-Type Natriuretic Peptide 169.56 0-100 pg/mL Total Protein 7.9 5.7-8.2 g/dL Albumin 4.9 H 3.2-4.8 g/dL Current Medications Medications (Trade) Dose Ordered Sig/Tricia Route Start Time Stop Time Status Last Admin Ketorolac Tromethamine (Toradol Injection) 30 mg ONCE ONCE IM 03/19/25 00:00 03/19/25 00:01 DC 03/19/25 00:00 X-Ray, Labs, Meds, VS Comment Patient will be admitted for ACS, non-STEMI Aspirin given, and metoprolol given Recommend cardiology consult in the morning Imaging: X-rays and CT scans were reviewed and interpreted by this provider, imaging shows no fractures and no pathological disease. Pending radiology review. Laboratory: Labs reviewed and interpreted by this provider. Patient has prior medical visits reviewed. Med reconciliation performed Vital signs reviewed Time of 1ST Reevaluation: 02:15 Reevaluation 1ST: Unchanged Patient Education/Counseling: Diagnosis, Treatment Family Education/Counseling: Diagnosis Departure 1 Departure Time of Disposition: 02:14 Impression: Primary Impression: ACS (acute coronary syndrome) Disposition: 09 ADMITTED INPATIENT Condition: Stable Critical Care Note Critical Care Time?: No Stability Stability form required: No Heart Score Heart Score: Heart Score Response (Comments) Value History Slightly Suspicious 0 EKG Normal 0 Age >65 2 Risk Factors >3 or Hx ASHD 2 Troponin 1-2 x's Normal limit 1 Total 5 BIBI ZEPEDA Mar 19, 2025 02:16
[2025-03-19] MEDS: ASPirin 325 MG TAB PO ONE (03:39)
[2025-03-19] MEDS: METOPROLOL TARTRATE 1MG/1ML-5ML VIAL IV ONE (03:40)
[2025-03-19 05:00] VITALS: PULSE 80; RESP 13; O2SAT 96
[2025-03-19] MEDS ORDERED: MORPHINE SULFATE INJ 2 MG/ml SYRG IV PRN (05:00)
[2025-03-19] MEDS ORDERED: NITROGLYCERIN 0.4 MG SL TAB SL PRN (05:00)
[2025-03-19] MEDS ORDERED: ONDANSETRON HCL 4 MG/2 ML VIAL IV PRN (05:00)
--- NOTE | 2025-03-19 05:08 | DVHHP2 ---
Admitting Diagnosis: Elevated Troponin History of Present Illness History Source: Patient Exam Limitations: Other (Dementia) HPI Mr. Juany Amaral is a 74 yo male with known history of dementia, COPD, CKF, DM, Hypertension who presents with a chief complaint. Patient is a poor historian due to his dementia. He reports he brought himself to the hospital because of "pain all over" when asked if he has chest pain he reports " all over ". Patient denies dyspnea, chest pain, headaches, dizziness. Patient admitted for further evaluation. Home Meds Active Scripts Quetiapine Fumerate (Seroquel) 50 Mg Tab, 1 TAB PO QPM for 30 Days, #30 TAB 1 Refill Prov:KETAN TRAN MD 05/29/24 Donepezil Hydrochloride (Aricept) 5 Mg Tab, 5 MG PO QPM for 30 Days, #30 TAB 2 Refills Prov:KETAN TRAN MD 05/29/24 Amoxicillin & Pot Clavulanate (Augmentin) 500 Mg Tab, 1 TAB PO BID for 7 Days, #14 TAB Prov:KETAN TRAN MD 05/29/24 Ibuprofen Micronized (Ibuprofen) 400 Mg Tab, 400 MG PO BIDP PRN for 15 Days, #30 TAB Prov:KETAN TRAN MD 05/22/24 Naproxen (NAPROSYN TABLET) 500 Mg Tb, 500 MG GT BID PRN for 10 Days, #20 TAB Prov:REUBEN BAEZA MD 12/24/23 Reported Medications Ferrous Sulfate (Iron) 325 Mg Tab, 325 MG PO DAILY, TAB 05/21/24 Oyster Shell (OYSTER SHELL CALCIUM 500) 500 Mg Tab, 500 MG OR DAILY, TAB 05/21/24 Amlodipine Besylate (Amlodipine Besylate) 10 Mg Tab, 1 TAB PO DAILY, #30 TAB 5 Refills 05/21/24 Past Medical History Cardiac: HTN Pulmonary: COPD Central Nervous System: Dementia GI: No pertinent Hx Hemotology/Oncology: No pertinent Hx Hepatobiliary: No pertinent Hx Psychiatric: No pertinent Hx Musculoskeletal: No pertinent Hx Rheumotologic: No pertinent Hx Infectious Disease: No peritnent Hx ENT: No pertinent Hx Renal/: CKD Endocrine: NIDDM Dermatology: No pertinent Hx Patient Family History: Diabetes mellitus Review of Systems Constitutional: Other (generalized pain) Ears, Nose, & Throat: No symptom reported Eyes: No symptom reported Pulmonary/Respiratory: No symptom reported Cardiovascular: No symptom reported Gastrointestinal: No symptom reported Genitourinary: No symptom reported Musculoskeletal: No symptom reported Skin: No symptom reported Psychiatric: No symptom reported Endocrine: No symptom reported Hemotologic/Lymphatic: No symptom reported H&P Exam Vital Signs Vital Signs Date Time Temp Pulse Resp B/P (MAP) Pulse Ox O2 Delivery O2 Flow Rate FiO2 03/19/25 01:43 84 03/18/25 23:45 99.1 18 161/106 (124) 98 99.1 General Appeara: Well developed, Well nourished, Normal Appearance Head Exam: Normal inspection Neck Exam: Normal inspection, Non-tender, Normal alignment Eye Exam: bilateral eye Normal inspection, bilateral eye PERRL, bilateral eye EOMI Ear Exam: bilateral ear Auricle normal Nasal Exam: Normal inspection Mouth: Normal Inspection Pulmonary/Respiratory: Normal inspection, Normal breath sounds, Chest non- tender, Lungs clear Cardiovascular/Chest: Normal inspection, Regular rate, Normal Rhythm Peripheral Pulses: 2+ dorsalis pedis (R), 2+ dorsalis pedis (L), 2+ Radial (R), 2+ Radial (L) Abdominal Exam: Normal bowel sounds, Soft, No tenderness Rectal Exam: Deferred Male Genital Exam: Not done Tendon/ Neuro: Normal sensation, Normal motor function 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 Exam: Normal hearing, Normal speech, PERRL Neuro/Mental St: Alert, Oriented Appearance: Appropriate appearance, Memory impairment Eye contact/ Speech: Cooperative, Good eye contact, Normal speech Thoughts/Psych: Other (Dementia) Skin Exam: Normal inspection, Normal color, Warm/dry Labs/Xrays Labs Test 03/19/25 03:00 03/19/25 00:01 Range/Units Troponin I High Sensitivity 124 *H </=54 ng/L White Blood Count 8.7 4.4-10.8 10^3/uL Red Blood Count 4.37 L 4.5-5.90 10^6/uL Hemoglobin 12.5 L 13.5-17.5 g/dL Hematocrit 37.8 L 41.0-53.0 % Mean Corpuscular Volume 86.7 80.0-100.0 fL Mean Corpuscular Hemoglobin 28.7 28.0-32.0 pg Mean Corpuscular Hemoglobin Concent 33.1 32.0-36.0 g/dL Red Cell Distribution Width 14.6 H 11.8-14.3 % Platelet Count 180 140-450 10^3/uL Mean Platelet Volume 7.9 6.9-10.8 fL Neutrophils (%) (Auto) 80.6 H 37.0-80.0 % Lymphocytes (%) (Auto) 9.9 L 10.0-50.0 % Monocytes (%) (Auto) 7.9 0.0-12.0 % Eosinophils (%) (Auto) 1.0 0.0-7.0 % Basophils (%) (Auto) 0.6 0.0-2.0 % Neutrophils # (Auto) 7.0 1.6-8.6 10 ^3/uL Lymphocytes # (Auto) 0.9 0.4-5.4 10 ^3/uL Monocytes # (Auto) 0.7 0-1.3 10 ^3/uL Eosinophils # (Auto) 0.1 0-0.8 10 ^3/uL Basophils # (Auto) 0.1 0-0.2 10 ^3/uL Nucleated Red Blood Cells 0.3 % Sodium Level 141 136-145 mmol/L Potassium Level 4.0 3.5-5.1 mmol/L Chloride Level 108 H 98-107 mmol/L Carbon Dioxide Level 24 20-31 mmol/L Anion Gap 9 5-15 Blood Urea Nitrogen 17 9-23 mg/dL Creatinine 1.21 0.700-1.30 mg/dL Glomerular Filtration Rate Calc 62 >90 mL/min BUN/Creatinine Ratio 14.0 10.0-20.0 Serum Glucose 95 74-106 mg/dL Calcium Level 10.2 8.7-10.4 mg/dL Total Bilirubin 0.9 0.2-1.0 mg/dL Aspartate Amino Transferase (AST) 48 H 13-40 U/L Alanine Aminotransferase (ALT) 21 7-40 U/L Alkaline Phosphatase 74 46-116 U/L B-Type Natriuretic Peptide 169.56 0-100 pg/mL Total Protein 7.9 5.7-8.2 g/dL Albumin 4.9 H 3.2-4.8 g/dL Assessment/Plan Problem List: (1) ACS (acute coronary syndrome) (2) Elevated troponin Plan This is a 74 yo male with known history of CKF, COPD, DM, hypertension, Dementia who presents to the hospital with body aches. Patient was found to have 1. Elevated troponin levels 2. Acute coronary syndrome 3. Elevated BNP 4. Hypertension Plan: Admit Telemetry Cardiology consultation, 2D echocardiogram, serial troponin levels, ASA, Statin Lovenox SC Lipid panel Antihypertensive as needed for optimal blood pressure control Reconcile home medications as needed Discussed all above with patient. Answered all questions. Discussed assessment and care plan with supervising MD. Patient's chart is reviewed and discussed with the nurse practitioner. I agree with the nurse practitioner's evaluation, documentation, assessment and care plan as outlined. Cardiology consultation is appreciated. Plan discussed with: Patient, Other Code Visit Code Visit Total Time (mins): 45 AMNA MORALES Mar 19, 2025 05:08 AYLA RAMIREZ MD Mar 19, 2025 12:11
[2025-03-19] MEDS ORDERED: hydrALAZINE HCL 20 MG/ML VL IV PRN (05:15)
[2025-03-19 05:31] LABS: INR 1.05 (0.9-1.15); Prothrombin Time 11.1 sec (9.3-11.8)
[2025-03-19] MEDS: ENOXAPARIN SOD 80 MG/0.8ML SYRINGE SC SCH (05:53)
[2025-03-19] MEDS: amLODIPine BESYLATE 5 MG TAB PO SCH (05:54)
[2025-03-19] MEDS: ACETAMINOPHEN 325 MG TAB PO PRN (06:17)
[2025-03-19 06:40] LABS: Triglycerides 112 mg/dL (< 150)
[2025-03-19 06:42] LABS: HDL Cholesterol 47 mg/dL (40-59)
[2025-03-19 06:44] LABS: Cholesterol 220 mg/dL (< 200); LDL Cholesterol 149 mg/dL (< 100)
--- NOTE | 2025-03-19 07:22 | DVHINCON2 ---
Date of service: Mar 19, 2025 History of Present Illness Mr. Juany Amaral is a 74 yo male with known history of dementia, COPD, CKF, DM, Hypertension who presents with a chief complaint. Patient is a poor historian due to his dementia. He reports he brought himself to the hospital because of "pain all over" when asked if he has chest pain he reports " all over ". Patient denies dyspnea, chest pain, headaches, dizziness. Patient admitted for further evaluation. Home Meds Active Scripts Quetiapine Fumerate (Seroquel) 50 Mg Tab, 1 TAB PO QPM for 30 Days, #30 TAB 1 Refill Prov:KETAN TRAN MD 05/29/24 Donepezil Hydrochloride (Aricept) 5 Mg Tab, 5 MG PO QPM for 30 Days, #30 TAB 2 Refills Prov:KETAN TRAN MD 05/29/24 Amoxicillin & Pot Clavulanate (Augmentin) 500 Mg Tab, 1 TAB PO BID for 7 Days, #14 TAB Prov:KETAN TRAN MD 05/29/24 Ibuprofen Micronized (Ibuprofen) 400 Mg Tab, 400 MG PO BIDP PRN for 15 Days, #30 TAB Prov:KETAN TRAN MD 05/22/24 Naproxen (NAPROSYN TABLET) 500 Mg Tb, 500 MG GT BID PRN for 10 Days, #20 TAB Prov:REUBEN BAEZA MD 12/24/23 Reported Medications Ferrous Sulfate (Iron) 325 Mg Tab, 325 MG PO DAILY, TAB 05/21/24 Oyster Shell (OYSTER SHELL CALCIUM 500) 500 Mg Tab, 500 MG OR DAILY, TAB 05/21/24 Amlodipine Besylate (Amlodipine Besylate) 10 Mg Tab, 1 TAB PO DAILY, #30 TAB 5 Refills 05/21/24 Past Medical History reviewed Family History: Diabetes mellitus Allergies: Coded Allergies: NO KNOWN ALLERGIES (Unverified , 10/29/19) Home Meds Active Scripts Quetiapine Fumerate (Seroquel) 50 Mg Tab, 1 TAB PO QPM for 30 Days, #30 TAB 1 Refill Prov:KETAN TRAN MD 05/29/24 Donepezil Hydrochloride (Aricept) 5 Mg Tab, 5 MG PO QPM for 30 Days, #30 TAB 2 Refills Prov:KETAN TRAN MD 05/29/24 Amoxicillin & Pot Clavulanate (Augmentin) 500 Mg Tab, 1 TAB PO BID for 7 Days, #14 TAB Prov:KETAN TRAN MD 05/29/24 Ibuprofen Micronized (Ibuprofen) 400 Mg Tab, 400 MG PO BIDP PRN for 15 Days, #30 TAB Prov:KETAN TRAN MD 05/22/24 Naproxen (NAPROSYN TABLET) 500 Mg Tb, 500 MG GT BID PRN for 10 Days, #20 TAB Prov:REUBEN BAEZA MD 12/24/23 Reported Medications Ferrous Sulfate (Iron) 325 Mg Tab, 325 MG PO DAILY, TAB 05/21/24 Oyster Shell (OYSTER SHELL CALCIUM 500) 500 Mg Tab, 500 MG OR DAILY, TAB 05/21/24 Amlodipine Besylate (Amlodipine Besylate) 10 Mg Tab, 1 TAB PO DAILY, #30 TAB 5 Refills 05/21/24 Current Medications Current Medications Medications (Trade) Dose Ordered Sig/Tricia Route PRN Reason Start Time Stop Time Status Last Admin Enoxaparin Sodium (Lovenox) 80 mg BID SC 03/19/25 05:00 03/19/25 05:53 Ondansetron HCl (Zofran) 4 mg Q6HP PRN IV NAUSEA / VOMITING 03/19/25 05:00 Aspirin 81 mg DAILY PO 03/19/25 10:00 Atorvastatin Calcium (Lipitor) 40 mg HS PO 03/19/25 22:00 Acetaminophen/ Hydrocodone Bitart ([place] 5/325MG Tab) 1 tab Q6HPRN PRN PO PAIN SCALE 1 THRU 6 03/19/25 05:00 Pantoprazole Sodium (Protonix) 40 mg DAILY IV 03/19/25 10:00 Acetaminophen (Tylenol Tablet) 650 mg Q6HPRN PRN PO PAIN SCALE 1-3 OR TEMP>100.4 03/19/25 05:00 03/19/25 06:17 Nitroglycerin (Ntrostat Sublingual) 0.4 mg Q5MINP PRN SL FOR CHEST PAIN 03/19/25 05:00 Morphine Sulfate 2 mg Q30M PRN IV FOR CHEST PAIN 03/19/25 05:00 Donepezil HCl (Aricept Tablet) 5 mg QPM PO 03/19/25 18:00 Amlodipine Besylate (Norvasc Tablet) 10 mg DAILY PO 03/19/25 10:00 03/19/25 05:25 DC Quetiapine Fumarate (SEROquel TABLET) 50 mg QPM PO 03/19/25 18:00 Hydralazine HCl (Apresoline Injection) 10 mg Q6HPRN PRN IV SBP>160 or DBP>105 03/19/25 05:15 Amlodipine Besylate (Norvasc Tablet) 10 mg DAILY PO 03/19/25 05:30 03/19/25 05:54 Review of Systems 10 pt ros otherwiise negative Vital Signs Vital Signs Date Time Temp Pulse Resp B/P (MAP) Pulse Ox O2 Delivery O2 Flow Rate FiO2 03/19/25 06:17 98.7 03/19/25 05:54 184/108 03/19/25 01:43 84 03/18/25 23:45 18 98 Physical Exam nad s1 s2 rrr ctab soft nt/nd no edema Labs/Diagnostic Data Labs Test 03/19/25 05:48 03/19/25 03:00 03/19/25 00:01 Range/Units Troponin I High Sensitivity 127 *H </=54 ng/L Prothrombin Time 11.1 9.3-11.8 sec Prothrombin Time INR 1.05 0.9-1.15 Triglycerides Level 112 < 150 mg/dL Cholesterol Level 220 H < 200 mg/dL LDL Cholesterol 149 H < 100 mg/dL HDL Cholesterol 47 40-59 mg/dL White Blood Count 8.7 4.4-10.8 10^3/uL Red Blood Count 4.37 L 4.5-5.90 10^6/uL Hemoglobin 12.5 L 13.5-17.5 g/dL Hematocrit 37.8 L 41.0-53.0 % Mean Corpuscular Volume 86.7 80.0-100.0 fL Mean Corpuscular Hemoglobin 28.7 28.0-32.0 pg Mean Corpuscular Hemoglobin Concent 33.1 32.0-36.0 g/dL Red Cell Distribution Width 14.6 H 11.8-14.3 % Platelet Count 180 140-450 10^3/uL Mean Platelet Volume 7.9 6.9-10.8 fL Neutrophils (%) (Auto) 80.6 H 37.0-80.0 % Lymphocytes (%) (Auto) 9.9 L 10.0-50.0 % Monocytes (%) (Auto) 7.9 0.0-12.0 % Eosinophils (%) (Auto) 1.0 0.0-7.0 % Basophils (%) (Auto) 0.6 0.0-2.0 % Neutrophils # (Auto) 7.0 1.6-8.6 10 ^3/uL Lymphocytes # (Auto) 0.9 0.4-5.4 10 ^3/uL Monocytes # (Auto) 0.7 0-1.3 10 ^3/uL Eosinophils # (Auto) 0.1 0-0.8 10 ^3/uL Basophils # (Auto) 0.1 0-0.2 10 ^3/uL Nucleated Red Blood Cells 0.3 % Sodium Level 141 136-145 mmol/L Potassium Level 4.0 3.5-5.1 mmol/L Chloride Level 108 H 98-107 mmol/L Carbon Dioxide Level 24 20-31 mmol/L Anion Gap 9 5-15 Blood Urea Nitrogen 17 9-23 mg/dL Creatinine 1.21 0.700-1.30 mg/dL Glomerular Filtration Rate Calc 62 >90 mL/min BUN/Creatinine Ratio 14.0 10.0-20.0 Serum Glucose 95 74-106 mg/dL Calcium Level 10.2 8.7-10.4 mg/dL Total Bilirubin 0.9 0.2-1.0 mg/dL Aspartate Amino Transferase (AST) 48 H 13-40 U/L Alanine Aminotransferase (ALT) 21 7-40 U/L Alkaline Phosphatase 74 46-116 U/L B-Type Natriuretic Peptide 169.56 0-100 pg/mL Total Protein 7.9 5.7-8.2 g/dL Albumin 4.9 H 3.2-4.8 g/dL Assessment nstemi copd dementia per notes HTN HL Plan/Recommendation trop is 2/2 to severe HTN, start afterload reduction rafael/arb and diuretic now check echo ecg shows SR, LVH, non specific changes outpt stress test Plan discussed with: Patient SANTILUZ Davison MD Mar 19, 2025 07:22
[2025-03-19 08:12] VITALS: PULSE 68; RESP 13; O2SAT 97
[2025-03-19] MEDS ORDERED: amLODIPine BESYLATE 5 MG TAB PO SCH (10:00)
[2025-03-19] MEDS: PANTOPRAZOLE 40 MG/10 ML VIAL INJ IV SCH ×2 (10:00→22:30)
[2025-03-19] MEDS: ASPirin 81 mg TAB PO SCH (10:12)
[2025-03-19] MEDS: LOSARTAN POTASSIUM 50 MG TAB PO SCH (10:12)
[2025-03-19 10:38] LABS: Urine Bacteria None Seen /hpf (None Seen)
[2025-03-19 10:47] LABS: Urine Blood 2+ /uL (Negative); Urine Clarity Clear (Clear); Urine Color Yellow (Yellow); Urine Mucus FEW (None Seen); Urine Protein, UAD 2+ (Negative); Urine Specific Gravity 1.021 (1.001-1.035); Urine Squamous Epithelial Cell None Seen /hpf (<5); Urine Urobilinogen Normal (Negative); Urine WBC 2 /HPF (0-3); Urine pH 5.5 (5.0-9.0)
[2025-03-19] MEDS ORDERED: cloNIDine HCL 0.1 MG TAB PO PRN (12:15)
[2025-03-19] MEDS: HALOPERIDOL LACTATE 5 MG/ML INJ VIAL ONE (13:39)
[2025-03-19] MEDS: HALOPERIDOL LACTATE 5 MG/ML INJ VIAL IM PRN (13:39)
[2025-03-19] MEDS ORDERED: DONEPEZIL HYDROCHLORIDE 5 MG TAB PO SCH (18:00)
[2025-03-19 18:12] LABS: CRP High Sensitivity 0.37 mg/dL (<1.0)
[2025-03-19 19:00] VITALS: PULSE 111; RESP 18; O2SAT 99
[2025-03-19 21:15] VITALS: PULSE 87; RESP 18
[2025-03-19] MEDS: QUEtiapine FUMARATE 25 MG TAB PO SCH (21:19)
[2025-03-19] MEDS: CHLORTHALIDONE 25 MG TAB PO SCH (21:19)
[2025-03-19 21:55] VITALS: BP 127/78; PULSE 98; RESP 18; TEMP 99.9; O2SAT 97
[2025-03-19] MEDS ORDERED: ATORVASTATIN 20 MG TAB PO SCH (22:00)
[2025-03-19 22:15] VITALS: PULSE 87; RESP 18
[2025-03-19 22:28] LABS: Erythrocyte Sedimentation Rate 19 mm/hr (0-20)
[2025-03-19] MEDS: DONEPEZIL HYDROCHLORIDE 5 MG TAB PO SCH (22:30)
[2025-03-19] MEDS: ALPRAZolam 0.25 MG TAB PO SCH (22:31)
[2025-03-20 08:00] VITALS: PULSE 77
[2025-03-20 09:00] VITALS: BP 148/97; PULSE 85; RESP 18; TEMP 99.1; O2SAT 98
[2025-03-20 10:40] LABS: Basophils # (auto) 0 10 ^3/uL (0-0.2); Basophils % (auto) 0.8 % (0.0-2.0); Eosinophils # (auto) 0.2 10 ^3/uL (0-0.8); Eosinophils % (auto) 2.7 % (0.0-7.0); Hemoglobin 12.3 g/dL (13.5-17.5); Lymphocytes # (auto) 1.4 10 ^3/uL (0.4-5.4); Lymphocytes % (auto) 22.2 % (10.0-50.0); Mean Corpuscular Hemoglobin 28.5 pg (28.0-32.0); Mean Corpuscular Hgb Conc. 33.2 g/dL (32.0-36.0); Mean Corpuscular Volume 85.8 fL (80.0-100.0); Monocytes # (auto) 0.7 10 ^3/uL (0-1.3); Monocytes % (auto) 10.8 % (0.0-12.0); Neutrophils % (auto) 63.5 % (37.0-80.0); Nucleated Red Blood Cells % 0.2 %; Platelet Count (auto) 177 10^3/uL (140-450); Red Blood Cells 4.32 10^6/uL (4.5-5.90); Red Cell Distribution Width 14.7 % (11.8-14.3); White Blood Cell 6.3 10^3/uL (4.4-10.8)
[2025-03-20 10:54] LABS: Anion Gap 14 (5-15); Carbon Dioxide 21 mmol/L (20-31); Potassium 3.5 mmol/L (3.5-5.1); Sodium 143 mmol/L (136-145)
[2025-03-20 10:55] LABS: Calcium 10.2 mg/dL (8.7-10.4); Chloride 108 mmol/L (98-107)
[2025-03-20 11:00] LABS: BUN/Creatinine Ratio 15.9 (10.0-20.0); Blood Urea Nitrogen 20 mg/dL (9-23); Glucose 61 mg/dL (74-106)
--- NOTE | 2025-03-20 13:09 | DVHPN2 ---
Progress Note - Dictate Date Seen: Mar 20, 2025 Medical Necessity Reason Pt with a Central, PICC or Fol: No Subjective Patient is calm and cooperative in bed sleeping but easily arousable. Sitter at bedside. Patient operatively took his IV line out overnight due to agitation. Therefore patient did not receive any IV medications and operatively refused his oral meds per nurse this morning. vital signs Vital Sign Date Time Temp Pulse Resp B/P (MAP) Pulse Ox O2 Delivery O2 Flow Rate FiO2 03/20/25 09:07 156/86 03/20/25 09:00 99.1 85 18 98 99.1 03/20/25 08:00 Room Air* 0 21 Total Intake and Output 03/19/25 03/19/25 03/20/25 15:00 23:00 07:00 Intake Total 0 ml Balance 0 ml medications Current Medications Medications Dose Ordered Sig/Tricia Route Start Time Stop Time Status Last Admin Dose Admin Enoxaparin Sodium 80 mg BID SC 03/19/25 05:00 03/19/25 10:12 80 MG Ondansetron HCl 4 mg Q6HP PRN IV 03/19/25 05:00 Aspirin 81 mg DAILY PO 03/19/25 10:00 03/19/25 10:12 81 MG Acetaminophen/ Hydrocodone Bitart 1 tab Q6HPRN PRN PO 03/19/25 05:00 Acetaminophen 650 mg Q6HPRN PRN PO 03/19/25 05:00 03/19/25 06:17 650 MG Nitroglycerin 0.4 mg Q5MINP PRN SL 03/19/25 05:00 Morphine Sulfate 2 mg Q30M PRN IV 03/19/25 05:00 Quetiapine Fumarate 50 mg QPM PO 03/19/25 18:00 Hydralazine HCl 10 mg Q6HPRN PRN IV 03/19/25 05:15 Losartan Potassium 50 mg DAILY PO 03/19/25 10:00 03/19/25 10:12 50 MG Chlorthalidone 12.5 mg BIDD PO 03/19/25 18:00 Clonidine HCl 0.1 mg Q6HP PRN PO 03/19/25 12:15 Haloperidol Lactate 2.5 mg Q8HP PRN IM 03/19/25 13:00 03/19/25 13:39 2.5 MG Alprazolam 0.25 mg BID PO 03/19/25 22:00 03/19/25 22:31 0.25 MG Pantoprazole Sodium 40 mg BID IV 03/19/25 22:00 03/19/25 22:30 40 MG Donepezil HCl 5 mg HS PO 03/19/25 22:00 03/19/25 22:30 5 MG Atorvastatin Calcium 40 mg HS PO 03/20/25 22:00 Enteral Nutritional Formula 240 ml DAILY@LUNCH PO 03/20/25 12:00 objective Comfortable in bed without any agitation or distress. He is able to answer yes or no questions. However he remains confused possible baseline dementia. HEENT neck supple no rigidity. Heart regular rate and rhythm S1 and S2. Lungs fair amount poor inspiratory effort no wheezing. Abdomen is soft nontender positive bowel sounds. Extremities no edema positive pulses. Neurologically no focal deficits. laboratory and microbiology Laboratory Tests 03/20/25 10:08 Test 03/20/25 10:08 Range/Units Serum Glucose 61 L 74-106 mg/dL Assessment/Plan I will order a CT of the chest abdomen pelvis without contrast for 's request. I spoke to the over the phone and updated her regarding his condition. Patient at baseline has dementia at home and apparently he is confused most of the time and hard to take care and handle for her. Patient is also not eating as much and complains of generalized body aches for her. She is requesting us to start him on some medications to keep him calm and not agitated while in the hospital as well as when he is discharged. For now we will continue present management and further management per clinical course. I will also have neurology consultation to make recommendations for his dementia and to add medications for agitation as appropriate. Discussed with the nurse regarding care plan. Problems(with codes): (1) Metabolic encephalopathy (2) Accelerated hypertension (3) Dementia (4) Elevated troponin Plan discussed with: Other AYLA RAMIREZ MD Mar 20, 2025 13:09
[2025-03-20 13:25] VITALS: BP 143/86; PULSE 70; RESP 20; TEMP 98.4; O2SAT 97
--- NOTE | 2025-03-20 14:17 | DVH ---
CT CHEST, ABDOMEN AND PELVIS WITHOUT CONTRAST CLINICAL HISTORY: Gen.weakness TECHNIQUE: Multiple contiguous axial images of the chest, abdomen and pelvis without intravenous cont rast. The images were reformatted degenerate coronal and sagittal reconstructions. All CT scans at this medical facility are performed using dose modulation techniques as appropriate t o a performed exam including the following:Automated exposure control was utilized; adjustment of the MA and/or KV according to patient size; and use of iterative reconstruction technique. Radiation Dose Information: CT Dose: CTDI volume is 12.35 mGy. Dose-length product is 860.98 mGy*cm Comparison: CT abdomen pelvis 05/20/2024 FINDINGS: Evaluation of the chest, abdomen and pelvis is limited without intravenous contrast. The lungs appear clear without consolidation.. There is no pleural effusion or pneumothorax. There i s no suspicious appearing pulmonary nodule or mass. There is no evidence of a mediastinal mass or lymphadenopathy. There is no axillary lymphadenopathy . There is an enlarged heterogeneous thyroid gland compatible with goiter. The heart size within normal limits. There are mild coronary artery calcifications. There is no peric ardial effusion. There are small gallstones in the gallbladder. There are small hyperdense/hemorrhagic cysts in the right kidney. There is no evidence of nephrolith iasis or hydronephrosis. The liver, pancreas, adrenal glands, and spleen appear within normal limits. There is no gross evidence of abdominal lymphadenopathy. There is no free fluid or free air. The stomach grossly appears unremarkable. The small and large bowel loops demonstrate normal caliber. The appendix is not seen in the right lower quadrant abdomen. There are no secondary signs of acute appendicitis. The abdominal aorta and IVC appear within normal limits. There is mild prostatomegaly. The bladder demonstrates circumferential wall thickening. Pelvic organ appears within normal limits. There is no evidence of a pelvic mass or lymphadenopathy. There is no free fluid collection. There is no acute osseous abnormality. IMPRESSION: 1. Cholelithiasis. 2. Mild prostatomegaly. Bladder demonstrates circumferential wall thickening which May relate to program developer gorge outlet obstruction. 3. There is no acute intrathoracic abnormality. 4. Enlarged heterogeneous thyroid gland compatible with goiter. HS:Y
[2025-03-20] MEDS: Ensure HIGH Protein Chocolate 8oz Bottle PO SCH (14:47)
[2025-03-20 16:45] VITALS: BP_SYST 150; BP_SYST 151; BP_DIAS 101; BP_DIAS 102; PULSE 82; PULSE 94; RESP 20; TEMP 98.2; O2SAT 95
[2025-03-20 17:37] VITALS: BP 138/80; PULSE 74
[2025-03-20] MEDS: HYDROcodone-ACET 5/325MG TAB PO PRN (18:36)
[2025-03-20 20:00] VITALS: PULSE 129; RESP 18
[2025-03-20] MEDS: ATORVASTATIN 20 MG TAB PO SCH (22:00)
[2025-03-21 05:00] VITALS: BP 158/91; PULSE 77; RESP 18; O2SAT 94
[2025-03-21 06:21] VITALS: BP 127/78; PULSE 64; RESP 18; TEMP 99.1
[2025-03-21 08:00] VITALS: PULSE 58
[2025-03-21 09:00] VITALS: BP 127/78; PULSE 64; RESP 18; TEMP 97.5; O2SAT 96
--- NOTE | 2025-03-21 11:00 | DVHINCON2 ---
Neuro Consultation Date of Consultation Date: 03/21/25 History of Present Illness History of Present Illness: Juany Amaral is a 74 year old male who presents with confusion. Patient refuses to be examined. He states he has nothing wrong with his head. note he was diagnosed with dementia at [facility] They did not start any medications. She notes that he is more confused, needign help with even ADLs. He is wandering, aggressive. She wants him calmed down and wants to take him home. She will consider watermelon inspector care. She is not sure of his medications. Review of Systems Review of Systems: Review of Systems: 12 point review of systems is negative unless stated in HPI. Family History Patient History: Diabetes mellitus G8 MOTHER FH: kidney failure G8 MOTHER Allergies and Medications Allergies: Coded Allergies: NO KNOWN ALLERGIES (Unverified , 10/29/19) Home Meds: Active Scripts Pantoprazole Sodium Sesquihydr (Pantoprazole Sodium Dr) 40 Mg Tab, 40 MG PO DAILY, #60 TAB Prov:AYLA RAMIREZ MD 03/22/25 Quetiapine Fumerate (Seroquel) 50 Mg Tab, 0.5 TAB PO BID, #30 TAB 2 Refills GIVE 1/2 tablet (25mg) twice a day with breakfast and dinner Prov:AYLA RAMIREZ MD 03/22/25 Losartan Potassium (Losartan Potassium) 50 Mg Tab, 50 MG PO DAILY, #60 TAB Prov:AYLA RAMIREZ MD 03/22/25 Aspirin (Aspirin Low Dose) 81 Mg Tab, 81 MG PO DAILY, #60 TAB Prov:AYLA RAMIREZ MD 03/22/25 Donepezil Hydrochloride (Aricept) 5 Mg Tab, 5 MG PO QPM for 30 Days, #30 TAB Prov:AYLA RAMIREZ MD 03/22/25 Ibuprofen Micronized (Ibuprofen) 400 Mg Tab, 400 MG PO BIDP PRN for 15 Days, #30 TAB Prov:AYLA RAMIREZ MD 03/22/25 Amlodipine Besylate (Amlodipine Besylate) 10 Mg Tab, 1 TAB PO DAILY, #60 TAB Prov:AYLA RAMIREZ MD 03/22/25 Discontinued Reported Medications Ferrous Sulfate (Iron) 325 Mg Tab, 325 MG PO DAILY, TAB 7/1/24 Oyster Shell (OYSTER SHELL CALCIUM 500) 500 Mg Tab, 500 MG OR DAILY, TAB 05/21/24 Discontinued Scripts Quetiapine Fumerate (Seroquel) 50 Mg Tab, 1 TAB PO QPM for 30 Days, #30 TAB 1 Refill Prov:KETAN TRAN MD 05/29/24 Amoxicillin & Pot Clavulanate (Augmentin) 500 Mg Tab, 1 TAB PO BID for 7 Days, #14 TAB Prov:KETAN TRAN MD 05/29/24 Naproxen (NAPROSYN TABLET) 500 Mg Tb, 500 MG GT BID PRN for 10 Days, #20 TAB Prov:REUBEN BAEZA MD 12/24/23 Current Medications: General Examination Last Vital sign General Exam: General Examination: General: No apparent distress, appears comfortable. Cooperative HEENT: Normocephalic, atraumatic. Supple neck. No oropharynx lesion or exudate noted. Extremities: No noted edema or cyanosis Skin: No noted rashes or jaundice. Neuro Exam: Mental Status: Alert. Speech is fluent and logical, no aphasia noted. Cranial Nerves: Extraocular muscles are intact. No ptosis on primary gaze. No facial asymmetry noted. Motor: Bulk is normal. No abnormal movements were noted. B/L UE and LE antigravity strength Gait: Normal stance, gait. Labs: Laboratory Tests Test 03/19/25 00:01 03/19/25 01:20 03/19/25 03:00 03/19/25 05:48 Range/Units White Blood Count 8.7 4.4-10.8 10^3/uL Red Blood Count 4.37 L 4.5-5.90 10^6/uL Hemoglobin 12.5 L 13.5-17.5 g/dL Hematocrit 37.8 L 41.0-53.0 % Mean Corpuscular Volume 86.7 80.0-100.0 fL Mean Corpuscular Hemoglobin 28.7 28.0-32.0 pg Mean Corpuscular Hemoglobin Concent 33.1 32.0-36.0 g/dL Red Cell Distribution Width 14.6 H 11.8-14.3 % Platelet Count 180 140-450 10^3/uL Mean Platelet Volume 7.9 6.9-10.8 fL Neutrophils (%) (Auto) 80.6 H 37.0-80.0 % Lymphocytes (%) (Auto) 9.9 L 10.0-50.0 % Monocytes (%) (Auto) 7.9 0.0-12.0 % Eosinophils (%) (Auto) 1.0 0.0-7.0 % Basophils (%) (Auto) 0.6 0.0-2.0 % Neutrophils # (Auto) 7.0 1.6-8.6 10 ^3/uL Lymphocytes # (Auto) 0.9 0.4-5.4 10 ^3/uL Monocytes # (Auto) 0.7 0-1.3 10 ^3/uL Eosinophils # (Auto) 0.1 0-0.8 10 ^3/uL Basophils # (Auto) 0.1 0-0.2 10 ^3/uL Nucleated Red Blood Cells 0.3 % Sodium Level 141 136-145 mmol/L Potassium Level 4.0 3.5-5.1 mmol/L Chloride Level 108 H 98-107 mmol/L Carbon Dioxide Level 24 20-31 mmol/L Anion Gap 9 5-15 Blood Urea Nitrogen 17 9-23 mg/dL Creatinine 1.21 0.700-1.30 mg/dL Glomerular Filtration Rate Calc 62 >90 mL/min BUN/Creatinine Ratio 14.0 10.0-20.0 Serum Glucose 95 74-106 mg/dL Calcium Level 10.2 8.7-10.4 mg/dL Total Bilirubin 0.9 0.2-1.0 mg/dL Aspartate Amino Transferase (AST) 48 H 13-40 U/L Alanine Aminotransferase (ALT) 21 7-40 U/L Alkaline Phosphatase 74 46-116 U/L Creatine Kinase 2374 H 46-171 U/L Troponin I High Sensitivity 110 *H 116 *H 124 *H 127 *H </=54 ng/L C-Reactive Protein High Sensitivity 0.37 <1.0 mg/dL B-Type Natriuretic Peptide 169.56 0-100 pg/mL Total Protein 7.9 5.7-8.2 g/dL Albumin 4.9 H 3.2-4.8 g/dL Prothrombin Time 11.1 9.3-11.8 sec Prothrombin Time INR 1.05 0.9-1.15 Triglycerides Level 112 < 150 mg/dL Cholesterol Level 220 H < 200 mg/dL LDL Cholesterol 149 H < 100 mg/dL HDL Cholesterol 47 40-59 mg/dL Test 03/19/25 10:20 03/19/25 12:00 03/19/25 20:45 03/20/25 10:08 Range/Units Urine Color Yellow Yellow Urine Clarity Clear Clear Urine pH 5.5 5.0-9.0 Urine Specific [place] 1.021 1.001-1.035 Urine Protein 2+ H Negative Urine Ketones Negative Negative Urine Blood 2+ H Negative /uL Urine Nitrite Negative Negative Urine Bilirubin Negative Negative Urine Urobilinogen Normal Negative mg/dL Urine Leukocyte Esterase Negative Negative /uL Urine RBC 8 0 - 3 /hpf Urine Microscopic WBC 2 0-3 /HPF Urine Squamous Epithelial Cells None seen <5 /hpf Urine Bacteria None seen None Seen /hpf Urine Mucus Few None Seen Urine Glucose Normal Normal mg/dL Troponin I High Sensitivity 113 *H </=54 ng/L Erythrocyte Sedimentation Rate 19 0-20 mm/hr White Blood Count 6.3 # 4.4-10.8 10^3/uL Red Blood Count 4.32 L 4.5-5.90 10^6/uL Hemoglobin 12.3 L 13.5-17.5 g/dL Hematocrit 37.0 L 41.0-53.0 % Mean Corpuscular Volume 85.8 80.0-100.0 fL Mean Corpuscular Hemoglobin 28.5 28.0-32.0 pg Mean Corpuscular Hemoglobin Concent 33.2 32.0-36.0 g/dL Red Cell Distribution Width 14.7 H 11.8-14.3 % Platelet Count 177 140-450 10^3/uL Mean Platelet Volume 8.0 6.9-10.8 fL Neutrophils (%) (Auto) 63.5 37.0-80.0 % Lymphocytes (%) (Auto) 22.2 10.0-50.0 % Monocytes (%) (Auto) 10.8 0.0-12.0 % Eosinophils (%) (Auto) 2.7 0.0-7.0 % Basophils (%) (Auto) 0.8 0.0-2.0 % Neutrophils # (Auto) 4.0 1.6-8.6 10 ^3/uL Lymphocytes # (Auto) 1.4 0.4-5.4 10 ^3/uL Monocytes # (Auto) 0.7 0-1.3 10 ^3/uL Eosinophils # (Auto) 0.2 0-0.8 10 ^3/uL Basophils # (Auto) 0 0-0.2 10 ^3/uL Nucleated Red Blood Cells 0.2 % Sodium Level 143 136-145 mmol/L Potassium Level 3.5 3.5-5.1 mmol/L Chloride Level 108 H 98-107 mmol/L Carbon Dioxide Level 21 20-31 mmol/L Anion Gap 14 5-15 Blood Urea Nitrogen 20 9-23 mg/dL Creatinine 1.26 0.700-1.30 mg/dL Glomerular Filtration Rate Calc 59 >90 mL/min BUN/Creatinine Ratio 15.9 10.0-20.0 Serum Glucose 61 L 74-106 mg/dL Calcium Level 10.2 8.7-10.4 mg/dL Test 03/22/25 06:15 Range/Units Sodium Level 142 136-145 mmol/L Potassium Level 3.1 L 3.5-5.1 mmol/L Chloride Level 109 H 98-107 mmol/L Carbon Dioxide Level 23 20-31 mmol/L Anion Gap 10 5-15 Blood Urea Nitrogen 23 9-23 mg/dL Creatinine 1.38 H 0.700-1.30 mg/dL Glomerular Filtration Rate Calc 53 >90 mL/min BUN/Creatinine Ratio 16.7 10.0-20.0 Serum Glucose 137 H 74-106 mg/dL Calcium Level 10.0 8.7-10.4 mg/dL Vitamin B12 Level 477 211-911 pg/mL Thyroid Stimulating Hormone (TSH) 1.48 0.55-4.78 uIU/mL Assessment/Plan Assessment and Plan:Juany Amaral is a 74 year old male who presents with confusion. 1. Possible dementia - 04/2024 CT head wo contrast (DVH) - normal study. Seroquel 50mg started 03/19, Donepezil 5mg daily. Attempted to call at [phone] but no answer, VM was full. notes pt was diagnosed in [facility], not sure if he takes medications. She states that he has trouble with his own ADLS, has progressive mood changes (aggressiveness, confusion, wandering). Vitamin B12 477, TSH 1.48. - Advise to limit Benzodiazepines, antihistamines - Pt will need outpt evaluation for dementia - Continue Seroquel 50mg daily + Donepezil 5mg daily. Plan discussed with: Spouse MSI CAROLINA MD March 21, 2025 11:00
[2025-03-21 13:00] VITALS: BP 141/85; PULSE 98; RESP 18; TEMP 98.8; O2SAT 98
--- NOTE | 2025-03-21 13:48 | DVHSR ---
APPROVED REPORT EXAM: Two-dimensional and M-mode echocardiogram with Doppler and color Doppler. Blood Pressure: 131/92 mmHg INDICATION elevated trponin RISK FACTORS Height: 5'9, Weight: 179 DIMENSIONS LVDd4.3 (3.8-5.7cm)LA (2D)4.5 (1.9-4.0cm)Aortic Root3.6 (2.0-3.7cm) LVDs3.1 (2.5-4.0cm)LA (MM) (1.9-4.0cm)Aortic Cusp Exc1.2 (1.5-2.0cm) EF (%) 56.0 (55-70%)Rt. Atrium5.0 (1.9-4.0cm)Asc. Aorta3.8 cm IVSd1.2 (0.7-1.1cm)RV (D)5.1 (1.8-2.4cm) PWd1.7 (0.7-1.1cm) Mitral Valve MitralMitral Stenosis E wave0.76m/sMV Mean GR.mmHg A wave0.93m/sMV Peak GR.42mmHg E/A ratio0.82D MVAcm2 DECEL [id number] 1/2 Tim[place] Aortic Valve Aortic ValveAortic Stenosis V10.97m/Jessica Mean GR.6mmHg V21.61m/Jessica Peak GR.10mmHg LVOT Diameter2.3 (1.8-2.4cm)Doppler AVA2.50cm2 Pulmonic Valve V20.61m/s Tricuspid Valve TR Velocity2.64m/s [id number] Conclusion lvef 60% normal LV function and size severe LVH normal RV function left atriu enlarged severe tricuspid regurg normal pericardium
[2025-03-21] MEDS: QUEtiapine FUMARATE 25 MG TAB PO ONE (15:00)
--- NOTE | 2025-03-21 15:15 | DVHPN2 ---
Progress Note - Dictate Date Seen: March 21, 2025 Medical Necessity Reason Pt with a Central, PICC or Fol: No Subjective Patient is remain confused and agitated today. Evaluated by neurologist today and Discussed with the neurologist over the phone regarding care plan. vital signs Vital Sign Date Time Temp Pulse Resp B/P (MAP) Pulse Ox O2 Delivery O2 Flow Rate FiO2 03/21/25 13:00 98.8 98 18 141/85 (103) 98 98.8 141/85 (103) 03/21/25 08:00 Room Air* 0 21 Total Intake and Output 03/20/25 03/20/25 03/21/25 15:00 23:00 07:00 Intake Total 640 ml 500 ml Output Total 500 ml Balance 140 ml 500 ml medications Current Medications Medications Dose Ordered Sig/Tricia Route Start Time Stop Time Status Last Admin Dose Admin Ondansetron HCl 4 mg Q6HP PRN IV 03/19/25 05:00 Aspirin 81 mg DAILY PO 03/19/25 10:00 03/19/25 10:12 81 MG Acetaminophen/ Hydrocodone Bitart 1 tab Q6HPRN PRN PO 03/19/25 05:00 03/20/25 18:36 1 TAB Acetaminophen 650 mg Q6HPRN PRN PO 03/19/25 05:00 03/19/25 06:17 650 MG Nitroglycerin 0.4 mg Q5MINP PRN SL 03/19/25 05:00 Morphine Sulfate 2 mg Q30M PRN IV 03/19/25 05:00 Hydralazine HCl 10 mg Q6HPRN PRN IV 03/19/25 05:15 Losartan Potassium 50 mg DAILY PO 03/19/25 10:00 03/19/25 10:12 50 MG Chlorthalidone 12.5 mg BIDD PO 03/19/25 18:00 03/21/25 06:27 12.5 MG Clonidine HCl 0.1 mg Q6HP PRN PO 03/19/25 12:15 Haloperidol Lactate 2.5 mg Q8HP PRN IM 03/19/25 13:00 03/21/25 15:00 2.5 MG Pantoprazole Sodium 40 mg BID IV 03/19/25 22:00 03/19/25 22:30 40 MG Donepezil HCl 5 mg HS PO 03/19/25 22:00 03/19/25 22:30 5 MG Atorvastatin Calcium 40 mg HS PO 03/20/25 22:00 Enteral Nutritional Formula 240 ml DAILY@LUNCH PO 03/20/25 12:00 03/21/25 11:40 240 ML Acetaminophen 650 mg Q6HR PO 03/21/25 18:00 Enoxaparin Sodium 40 mg DAILY SC 03/22/25 10:00 Quetiapine Fumarate 25 mg QAM PO 03/22/25 07:00 objective Comfortable in bed confused with a sitter at bedside. He is able to answer yes or no questions. However he remains confused possible baseline dementia. HEENT neck supple no rigidity. Heart regular rate and rhythm S1 and S2. Lungs fair amount poor inspiratory effort no wheezing. Abdomen is soft nontender positive bowel sounds. Extremities no edema positive pulses. Neurologically no focal deficits. laboratory and microbiology Laboratory Tests 03/20/25 10:08 Test 03/20/25 10:08 Range/Units Serum Glucose 61 L 74-106 mg/dL Assessment/Plan CT of the abdomen and pelvis ordered does not show any acute pathology to explain his generalized pain. We will start him on Tylenol scheduled dose for pain control. We will titrate his Seroquel for agitation. Use Haldol as needed. We will have social Service consultation for home evaluation to see if he is safe to be at home. Otherwise continue rest of supportive care and treatment. Further clinical management per clinical course. Discussed with the neurologist. Problems(with codes): (1) Dementia (2) Metabolic encephalopathy (3) Accelerated hypertension Plan discussed with: Other AYLA RAMIREZ MD March 21, 2025 15:15
[2025-03-21 17:00] VITALS: BP 167/102; PULSE 118; RESP 18; TEMP 98.3; O2SAT 95
[2025-03-21] MEDS: ACETAMINOPHEN 325 MG TAB PO SCH (18:00)
[2025-03-22 05:00] VITALS: BP 129/93; PULSE 75; RESP 18; TEMP 98.3; O2SAT 98
[2025-03-22] MEDS: QUEtiapine FUMARATE 25 MG TAB PO SCH (06:20)
[2025-03-22 07:09] LABS: Sodium 142 mmol/L (136-145)
[2025-03-22 07:10] LABS: Anion Gap 10 (5-15); Carbon Dioxide 23 mmol/L (20-31)
[2025-03-22 07:15] LABS: BUN/Creatinine Ratio 16.7 (10.0-20.0); Blood Urea Nitrogen 23 mg/dL (9-23); Chloride 109 mmol/L (98-107); Glucose 137 mg/dL (74-106); Potassium 3.1 mmol/L (3.5-5.1)
[2025-03-22 08:00] VITALS: PULSE 63
[2025-03-22 08:53] VITALS: BP 126/81; PULSE 65; RESP 18; TEMP 98.6; O2SAT 97
[2025-03-22] MEDS: ENOXAPARIN SOD 40 MG/0.4 ML SYRINGE SC SCH (09:37)
--- NOTE | 2025-03-22 12:52 | DVHPN2 ---
Progress Note - Dictate Date Seen: March 22, 2025 Medical Necessity Reason Pt with a Central, PICC or Fol: No Subjective Patient is remain confused and agitated today. Evaluated by neurologist today and Discussed with the neurologist over the phone regarding care plan. vital signs Vital Sign Date Time Temp Pulse Resp B/P (MAP) Pulse Ox O2 Delivery O2 Flow Rate FiO2 03/22/25 09:37 126/81 03/22/25 08:53 98.6 65 18 97 98.6 03/21/25 20:00 Room Air* 0 21 Total Intake and Output 03/21/25 03/21/25 03/22/25 15:00 23:00 07:00 Intake Total 500 ml 675 ml Balance 500 ml 675 ml medications Current Medications Medications Dose Ordered Sig/Tricia Route Start Time Stop Time Status Last Admin Dose Admin Ondansetron HCl 4 mg Q6HP PRN IV 03/19/25 05:00 Aspirin 81 mg DAILY PO 03/19/25 10:00 03/22/25 09:30 81 MG Acetaminophen/ Hydrocodone Bitart 1 tab Q6HPRN PRN PO 03/19/25 05:00 03/20/25 18:36 1 TAB Acetaminophen 650 mg Q6HPRN PRN PO 03/19/25 05:00 03/19/25 06:17 650 MG Nitroglycerin 0.4 mg Q5MINP PRN SL 03/19/25 05:00 Morphine Sulfate 2 mg Q30M PRN IV 03/19/25 05:00 Hydralazine HCl 10 mg Q6HPRN PRN IV 03/19/25 05:15 Losartan Potassium 50 mg DAILY PO 03/19/25 10:00 03/19/25 10:12 50 MG Chlorthalidone 12.5 mg BIDD PO 03/19/25 18:00 03/22/25 05:33 12.5 MG Clonidine HCl 0.1 mg Q6HP PRN PO 03/19/25 12:15 Haloperidol Lactate 2.5 mg Q8HP PRN IM 03/19/25 13:00 03/22/25 05:34 2.5 MG Pantoprazole Sodium 40 mg BID IV 03/19/25 22:00 03/19/25 22:30 40 MG Donepezil HCl 5 mg HS PO 03/19/25 22:00 03/19/25 22:30 5 MG Atorvastatin Calcium 40 mg HS PO 03/20/25 22:00 Enteral Nutritional Formula 240 ml DAILY@LUNCH PO 03/20/25 12:00 03/21/25 11:40 240 ML Acetaminophen 650 mg Q6HR PO 03/21/25 18:00 Enoxaparin Sodium 40 mg DAILY SC 03/22/25 10:00 Quetiapine Fumarate 25 mg QAM PO 03/22/25 07:00 03/22/25 06:20 25 MG objective Comfortable in bed confused with a sitter at bedside. He is able to answer yes or no questions. However he remains confused possible baseline dementia. HEENT neck supple no rigidity. Heart regular rate and rhythm S1 and S2. Lungs fair amount poor inspiratory effort no wheezing. Abdomen is soft nontender positive bowel sounds. Extremities no edema positive pulses. Neurologically no focal deficits. laboratory and microbiology Laboratory Tests 03/22/25 06:15 03/20/25 10:08 Test 03/22/25 06:15 Range/Units Serum Glucose 137 H 74-106 mg/dL Assessment/Plan CT of the abdomen and pelvis ordered does not show any acute pathology to explain his generalized pain. We will start him on Tylenol scheduled dose for pain control. We will titrate his Seroquel for agitation. Use Haldol as needed. We will have social Service consultation for home evaluation to see if he is safe to be at home. Otherwise continue rest of supportive care and treatment. Further clinical management per clinical course. Discussed with the neurologist. Dietary Evaluation Review Comments: 1. encourage and monitor PO intake to meet 75% of her needs 2. continue with Ensure high Protein 240ml PO Expected Outcomes/Goals: preven wt loss Plan discussed with: AYLA Breaux MD March 22, 2025 12:52
[2025-03-22 13:09] VITALS: BP 117/65; PULSE 63; RESP 18; TEMP 98.7; O2SAT 98
[2025-03-22] MEDS ORDERED: QUET50TA PO (14:39)
[2025-03-22] MEDS ORDERED: IBUP1TAB4 PO (14:39)
[2025-03-22] MEDS ORDERED: ASPI-325 PO (14:39)
[2025-03-22] MEDS ORDERED: DONE5TAB11 PO (14:39)
[2025-03-22] MEDS ORDERED: AMLO1TAB23 PO (14:39)
[2025-03-22] MEDS ORDERED: PANT40TA57 PO (14:39)
[2025-03-22] MEDS ORDERED: LOSA-534 PO (14:39)
--- NOTE | 2025-03-22 14:48 | DVHDS2 ---
Discharge Summary Date of Admission Mar 19, 2025 at 04:54 Date of Discharge: March 22, 2025 Labs/Diagnostic Data: Laboratory Results Test 03/22/25 06:15 03/20/25 10:08 03/19/25 20:45 03/19/25 12:00 Sodium Level 142 mmol/L (136-145) Potassium Level 3.1 mmol/L (3.5-5.1) Chloride Level 109 mmol/L (98-107) Carbon Dioxide Level 23 mmol/L (20-31) Anion Gap 10 (5-15) Blood Urea Nitrogen 23 mg/dL (9-23) Creatinine 1.38 mg/dL (0.700-1.30) Glomerular Filtration Rate Calc 53 mL/min (>90) BUN/Creatinine Ratio 16.7 (10.0-20.0) Serum Glucose 137 mg/dL (74-106) Calcium Level 10.0 mg/dL (8.7-10.4) Vitamin B12 Level 477 pg/mL (211-911) Thyroid Stimulating Hormone (TSH) 1.48 uIU/mL (0.55-4.78) White Blood Count 6.3 10^3/uL (4.4-10.8) Red Blood Count 4.32 10^6/uL (4.5-5.90) Hemoglobin 12.3 g/dL (13.5-17.5) Hematocrit 37.0 % (41.0-53.0) Mean Corpuscular Volume 85.8 fL (80.0-100.0) Mean Corpuscular Hemoglobin 28.5 pg (28.0-32.0) Mean Corpuscular Hemoglobin Concent 33.2 g/dL (32.0-36.0) Red Cell Distribution Width 14.7 % (11.8-14.3) Platelet Count 177 10^3/uL (140-450) Mean Platelet Volume 8.0 fL (6.9-10.8) Neutrophils (%) (Auto) 63.5 % (37.0-80.0) Lymphocytes (%) (Auto) 22.2 % (10.0-50.0) Monocytes (%) (Auto) 10.8 % (0.0-12.0) Eosinophils (%) (Auto) 2.7 % (0.0-7.0) Basophils (%) (Auto) 0.8 % (0.0-2.0) Neutrophils # (Auto) 4.0 10 ^3/uL (1.6-8.6) Lymphocytes # (Auto) 1.4 10 ^3/uL (0.4-5.4) Monocytes # (Auto) 0.7 10 ^3/uL (0-1.3) Eosinophils # (Auto) 0.2 10 ^3/uL (0-0.8) Basophils # (Auto) 0 10 ^3/uL (0-0.2) Nucleated Red Blood Cells 0.2 % Erythrocyte Sedimentation Rate 19 mm/hr (0-20) Troponin I High Sensitivity 113 ng/L (</=54) Test 03/19/25 10:20 03/19/25 03:00 03/19/25 00:01 Urine Color Yellow (Yellow) Urine Clarity Clear (Clear) Urine pH 5.5 (5.0-9.0) Urine Specific [place] 1.021 (1.001-1.035) Urine Protein 2+ (Negative) Urine Ketones Negative (Negative) Urine Blood 2+ /uL (Negative) Urine Nitrite Negative (Negative) Urine Bilirubin Negative (Negative) Urine Urobilinogen Normal mg/dL (Negative) Urine Leukocyte Esterase Negative /uL (Negative) Urine RBC 8 /hpf (0 - 3) Urine Microscopic WBC 2 /HPF (0-3) Urine Squamous Epithelial Cells None seen /hpf (<5) Urine Bacteria None seen /hpf (None Seen) Urine Mucus Few (None Seen) Urine Glucose Normal mg/dL (Normal) Prothrombin Time 11.1 sec (9.3-11.8) Prothrombin Time INR 1.05 (0.9-1.15) Triglycerides Level 112 mg/dL (< 150) Cholesterol Level 220 mg/dL (< 200) LDL Cholesterol 149 mg/dL (< 100) HDL Cholesterol 47 mg/dL (40-59) Total Bilirubin 0.9 mg/dL (0.2-1.0) Aspartate Amino Transferase (AST) 48 U/L (13-40) Alanine Aminotransferase (ALT) 21 U/L (7-40) Alkaline Phosphatase 74 U/L (46-116) Creatine Kinase 2374 U/L (46-171) C-Reactive Protein High Sensitivity 0.37 mg/dL (<1.0) B-Type Natriuretic Peptide 169.56 pg/mL (0-100) Total Protein 7.9 g/dL (5.7-8.2) Albumin 4.9 g/dL (3.2-4.8) Other Laboratory Tests 03/22/25 06:15 03/20/25 10:08 Brief Hx & Hospital Course: Mr. Juany Amaral is a 74 yo male with known history of dementia, COPD, CKF, DM, Hypertension who presents with a chief complaint. Patient is a poor historian due to his dementia. He reports he brought himself to the hospital because of "pain all over" when asked if he has chest pain he reports " all over ". Patient denies dyspnea, chest pain, headaches, dizziness. Patient admitted for further evaluation. He is admitted and evaluated by mumps developer as well as neurologist. Patient has elevated troponin felt secondary to demand ischemia from a poorly controlled high blood pressure. Therefore blood pressure medications have been adjusted. His blood pressure normalized in the hospital. Patient had a echocardiogram showed normal ejection fraction. LVH noted. In terms of dementia seen by neurologist felt that his dementia symptoms are progressively getting worse with more agitation. Started on Seroquel twice a day and received Haldol intramuscularly as needed. With this his aggressive behavior agitation has significantly improved. Today he is cooperative normal. Tolerating his diet. Getting out of bed sitting in the chair and stable. He also had a CT of the chest abdomen and pelvis for generalized weakness did not show any acute significant pathology except for cholelithiasis and mild prostate enlargement. Patient is not having any abdominal pain symptoms. His CMP/liver tests are normal. Patient does not have any nausea vomiting episodes. He is otherwise clinically stable. His is at bedside. Therefore I have talked to her along with the nurse at bedside regarding his hospital diagnosis, his lab results and investigative studies including CT scans, treatment he received, discharge medications, discharge instructions follow-up plan of care. She has verbalized understanding of this and given that his agitation has improved she was willing to take him home. I have told the that he needs to have a close follow up with the neurologist as well as orthopedic surgery for his dementia and shoulder arthritis and pain. Patient is given information regarding this. I have also talked to choice on-call caser up to arrange for safety evaluation at home as well as home health for medication compliance and the checking his blood pressure. Patient's understands the hospital care he received and wants him to come home today. Consults/Reason for consult Assessment and Plan:Juany Amaral is a 74 year old male who presents with confusion. 1. Possible dementia - 04/2024 CT head wo contrast (DVH) - normal study. Seroquel 50mg started 03/19, Donepezil 5mg daily. Attempted to call at [phone] but no answer, VM was full. - TSH, Vitamin B12, Folate - Advise to limit Benzodiazepines, antihistamines - Pt will need outpt evaluation for dementia MIS CAROLINA MD March 21, 2025 11:00 Assessment nstemi copd dementia per notes HTN HL Plan/Recommendation trop is 2/2 to severe HTN, start afterload reduction rafael/arb and diuretic now check echo ecg shows SR, LVH, non specific changes outpt stress test Plan discussed with: Patient SANTILUZ Davison MD Mar 19, 2025 07:22 Operations or Procedures APPROVED REPORT EXAM: Two-dimensional and M-mode echocardiogram with Doppler and color Doppler. Blood Pressure: 131/92 mmHg INDICATION elevated trponin RISK FACTORS Height: 5'9, Weight: 179 DIMENSIONS LVDd 4.3 (3.8-5.7cm) LA (2D) 4.5 (1.9-4.0cm) Aortic Root 3.6 (2.0- 3.7cm) LVDs 3.1 (2.5-4.0cm) LA (MM) (1.9-4.0cm) Aortic Cusp Exc 1.2 (1.5- 2.0cm) EF (%) 56.0 (55-70%) Rt. Atrium 5.0 (1.9-4.0cm) Asc. Aorta 3.8 cm IVSd 1.2 (0.7-1.1cm) RV (D) 5.1 (1.8-2.4cm) PWd 1.7 (0.7-1.1cm) Mitral Valve Mitral Mitral Stenosis E wave 0.76m/s MV Mean GR. mmHg A wave 0.93m/s MV Peak GR. 42mmHg E/A ratio 0.8 2D MVA cm2 DECEL Time 208ms PRESS 1/2 Time ms Aortic Valve Aortic Valve Aortic Stenosis V1 0.97m/s AO Mean GR. 6mmHg V2 1.61m/s AO Peak GR. 10mmHg LVOT Diameter 2.3 (1.8-2.4cm) Doppler JONEL 2.50cm2 Pulmonic Valve V2 0.61m/s Tricuspid Valve TR Velocity 2.64m/s RVSP 34mmHg Conclusion lvef 60% normal LV function and size severe LVH normal RV function left atriu enlarged severe tricuspid regurg normal pericardium SIGNED BY: LUZ HANCOCK MD SIGNED DATE/TIME: 03/21/25 7544 Condition at Discharge: Stable Final Diagnosis/Problems List Dementia, failure to thrive, HTN, demand ischemia due to htn, gerd Discharge Disposition: Home Discharge Instruct/Medications Diet: Consistent carbohydrate, Cardiac 2g Na,low cholest Activity: No Restrictions, As Tolerated Follow Up/Referral: Dr.Sonia Carolina neurology after 2 weeks for dementia with agitation management and Dr.samir Carolina orthopedic surgeon for shoulder pain 2-3 weeks Medications: Give all the medications as prescribed and per discharge medications list New Medications: Pantoprazole Sodium Sesquihydr (Pantoprazole Sodium Dr) 40 Mg Tab 40 MG PO DAILY, #60 TAB Quetiapine Fumerate (Seroquel) 50 Mg Tab 0.5 TAB PO BID, #30 TAB 2 Refills GIVE 1/2 tablet (25mg) twice a day with breakfast and dinner Aspirin (Aspirin Low Dose) 81 Mg Tab 81 MG PO DAILY, #60 TAB Losartan Potassium (Losartan Potassium) 50 Mg Tab 50 MG PO DAILY, #60 TAB Continued Medications: Amlodipine Besylate (Amlodipine Besylate) 10 Mg Tab 1 TAB PO DAILY, #60 TAB (This prescription has been renewed) Donepezil Hydrochloride (Aricept) 5 Mg Tab 5 MG PO QPM for 30 Days, #30 TAB (This prescription has been renewed) Ibuprofen Micronized (Ibuprofen) 400 Mg Tab 400 MG PO BIDP PRN for 15 Days, #30 TAB (This prescription has been renewed) Discontinued Medications: Amoxicillin & Pot Clavulanate (Augmentin) 500 Mg Tab 1 TAB PO BID for 7 Days, #14 TAB Ferrous Sulfate (Iron) 325 Mg Tab 325 MG PO DAILY, TAB Naproxen (Naprosyn Tablet) 500 Mg Tb 500 MG GT BID PRN for 10 Days, #20 TAB Oyster Shell (Oyster Shell Calcium 500) 500 Mg Tab 500 MG OR DAILY, TAB Quetiapine Fumerate (Seroquel) 50 Mg Tab 1 TAB PO QPM for 30 Days, #30 TAB 1 Refill Discharge Statement: "Patient was advised to return to the ER or call 911 if any headaches, dizziness, shortness of breath, chest pain, abdominal pain, bleeding, fevers, or worsening of medical condition. Patient was counseled about treatment plan, medications, possible side effects, patientverbalized understanding. All questions were answered to the best of my ability. This discharge took greater then 30 minutes in planning, reviewing documentation, counseling the patient, and discussing with other team members." ASSESSMENT ASSESSMENT Assessment Dementia, failure to thrive, HTN, demand ischemia due to htn, gerd AYLA RAMIREZ MD March 22, 2025 14:48
[2025-03-22 16:15] VITALS: BP 126/81; TEMP 37.1
[2025-03-22] MEDS: PANTOPRAZOLE 40 MG TAB PO ONE (16:59)
[2025-03-22 17:29] VITALS: BP 138/79; PULSE 70; RESP 18; TEMP 98.5; O2SAT 98
[2025-03-22] MEDS ORDERED: QUEtiapine FUMARATE 25 MG TAB PO SCH (22:00)
[2025-03-23] MEDS ORDERED: PANTOPRAZOLE 40 MG TAB PO SCH (06:00)
== END 2025-03-22 17:05 | disposition home health service (06) | DRG 282 ==
LOC: ER 23:31 → OVERFLOW 03-19 04:54 → UNDODISIN 03-19 13:47 → TELE-CENTR 03-19 21:55
PROVIDERS: ADMIT Nurse Practitioner Family; ATTEND Nurse Practitioner Family
DX: I16.0 Hypertensive urgency (principal); I21.A1 Myocardial infarction type 2; F03.90 Unspecified dementia, unspecified severity, without behavioral disturbance, psychotic disturbance, mood disturbance, and anxiety; J44.9 Chronic obstructive pulmonary disease, unspecified; I12.9 Hypertensive chronic kidney disease with stage 1 through stage 4 chronic kidney disease, or unspecified chronic kidney disease; E11.22 Type 2 diabetes mellitus with diabetic chronic kidney disease; K80.20 Calculus of gallbladder without cholecystitis without obstruction; N40.0 Benign prostatic hyperplasia without lower urinary tract symptoms; N18.9 Chronic kidney disease, unspecified; R62.7 Adult failure to thrive; K21.9 Gastro-esophageal reflux disease without esophagitis; Z79.1 Long term (current) use of non-steroidal anti-inflammatories (NSAID); Z83.3 Family history of diabetes mellitus; Z79.899 Other long term (current) drug therapy; Z84.1 Family history of disorders of kidney and ureter; Z79.84 Long term (current) use of oral hypoglycemic drugs; Z68.25 Body mass index [BMI] 25.0-25.9, adult; Z79.82 Long term (current) use of aspirin
CPT/HCPCS: 36415; 71045; 71250; 74176; 80048; 80053; 80061; 81001; 82550; 82607; 83880; 84443; 84484; 85025; 85610; 85652; 86141; 93005; 93306; 96372; 97163; G0378; J1885; J2470

== ENCOUNTER 2025-05-17 19:00 | Inpatient (IN) | payer OTHER, MEDICAID ==
[~2025-05-17] VITALS: Ht 175.3 cm; Wt 75.0 kg
[2025-05-17] MEDS: SODIUM CHLORIDE 0.9% 1,000 ML IV ONE ×2 (01:09→19:50)
[~2025-05-17 19:00] MED LIST changes: -AMOX500T86 PO; +ASPI-325 PO; -FERR-7 PO; +LOSA-534 PO; -NAP500T GT; -OYST1TAB OR; +PANT40TA57 PO
--- NOTE | 2025-05-17 19:08 | ED.PDOC ---
GI ASSESSMENT HPI Comments 75y F who presents to the ED via EMS for chief complaint of rectal bleeding. - pt has history of dementia and lives with who is caregiver after had 2x episodes of bloody bowel movements - pt has upper and lower GI endoscopy and colonoscopy with poly removal earlier this AM - pt was at home and had the 1st bloody bowel movement at approx. 1530 with bright red blood - pt had another 2nd bloody bowel movement at approx. 1630 with dark red blood and called EMS - pt states he has been having diffuse abdominal pain today, with no associated exacerbating or relieving factors - pt otherwise is on aspirin at this time - pt otherwise denies any other symptoms at this time past medical history: GERD, hiatal hernia, dementia past surgical history: coloscopy allergies: denies medications: aspirin social history: denies tobacco use, denies ETOH use, denies drug use HPI: Poor Historian. REVIEW OF SYSTEMS: CONSTITUTIONAL: Denies acute: fever, diaphoresis, chills, HEAD: Denies acute: headache, photophobia Eyes: Denies acute: Double vision, vision loss, eye pain, eye discharge. EARS: Denies acute: tinnitus, hearing loss, ear discharge, ear pain, THROAT: Denies acute: sore throat, swelling, difficulty swallowing , pain with swallowing, change in voice. NECK: Denies acute: neck pain, neck swelling, stiff neck. HEART: Denies acute : chest pain, palpitations, LUNGS: Denies acute: SOB, wheezing, cough, hemoptysis ABDOMEN: Denies acute: Nausea, Vomiting, diarrhea, melena , hematemesis, SKIN: Denies acute: rash, redness, lesions, itchiness. EXTREMITIES: Denies acute: calf pain, numbness, tingling, weakness, denies pain in extremity. Denies acute: Low back pain. Neuro: Denies acute: focal neurological deficit, motor or sensory focal neurological deficit, tremors, seizure like activity, confusion, dizziness, change in mental status, loss of bowel or bladder function, cauda equina like symptoms. : Denies acute: dysuria, hematuria, flank pain, increase in urinary frequency. PSYCH: Denies acute: hallucination, suicidal ideation, homicidal ideation. PHYSICAL EXAM: General: ---[id number]-----acute distress, awake and alert. Head: normocephalic, atraumatic. Neck: supple, trachea is midline, no swelling. Throat: Normal phonation. Eyes:, no erythema, no purulent discharge, no proptosis, no icterus. Heart: regular rate, regular rhythm, no significant murmur appreciated. Lungs: no apparent respiratory distress, Able to speak in full sentences. No wheezing, no rhonchi, no crackles. No stridors Clear to auscultation bilaterally. Abdomen: Generalized mild tender to palpation, non distended, soft, no guarding, no rebound, + bowel sounds. Neuro: Awake, Alert, oriented to name, self, follows commands. At baseline dementia. GCS=15. Speech is normal. Skin: no petechia, no purpura, no cyanosis, non-pale, not jaundice. Lower extremities: --trace - Pitting edema no deformity, no focal swelling, no calf TTP. Makes eye contact. moves all four extremities. Face: no apparent facial droop. ED COURSE: DISCLAIMER: This medical document was created using an electronic medical record system with voice recognition software and computerized dictation system. Although this document has been carefully reviewed, there might still be some phonetic and typographical errors. Occasional wrong-word or "sound-alike" substitutions may have occurred due to the inherent limitations of voice recognition software. These areas are purely typographical due to imperfections of the software programs and do not reflect any compromise in the patient's medical care. Please read the chart carefully and recognize, using context, where these substitutions have occurred. Time Seen by MD: 19:07 Primary Care Provider: DEVIN Reviewed Notes: Agile Tester Notes, Medications, Allergies Allergies: Coded Allergies: NO KNOWN ALLERGIES (Unverified , 10/29/19) Home Meds Active Scripts Pantoprazole Sodium Sesquihydr (Pantoprazole Sodium Dr) 40 Mg Tab, 40 MG PO DAILY, #60 TAB Prov:AYLA RAMIREZ MD 03/22/25 Quetiapine Fumerate (Seroquel) 50 Mg Tab, 0.5 TAB PO BID, #30 TAB 2 Refills GIVE 1/2 tablet (25mg) twice a day with breakfast and dinner Prov:AYLA RAMIREZ MD 03/22/25 Losartan Potassium (Losartan Potassium) 50 Mg Tab, 50 MG PO DAILY, #60 TAB Prov:AYLA RAMIREZ MD 03/22/25 Donepezil Hydrochloride (Aricept) 5 Mg Tab, 5 MG PO QPM for 30 Days, #30 TAB Prov:AYLA RAMIREZ MD 03/22/25 Ibuprofen Micronized (Ibuprofen) 400 Mg Tab, 400 MG PO BIDP PRN for 15 Days, #30 TAB Prov:AYLA RAMIREZ MD 03/22/25 Amlodipine Besylate (Amlodipine Besylate) 10 Mg Tab, 1 TAB PO DAILY, #60 TAB Prov:AYLA RAMIREZ MD 03/22/25 Discontinued Scripts Aspirin (Aspirin Low Dose) 81 Mg Tab, 81 MG PO DAILY, #60 TAB Prov:AYLA RAMIREZ MD 03/22/25 Information Source: Patient, Emergency Med Personnel Mode of Arrival: EMS Past Medical History PAST MEDICAL HISTORY: CKF, COPD, Dementia, DM, HTN Surgical History: Denies all surgeries Family History Family History: Reviewed,noncontributory to illness, Family hx of DM Family History (Other): CKD Social History Smoker: Non-Smoker, Other Alcohol: Denies ETOH Use Drugs: Denies Drug Use Lives In: Home Was a procedure done? Was a procedure done?: No GI differential Dx Differential Diagnosis: Other (Diverticulitis, colitis, fistula, neoplasm, hemorrhoids, anal fissures, constipation, Crohn's disease, ulcerative colitis, postoperative complication, abdominal tear, viscous perforation,) X-Ray, Labs, Meds, VS Vital Signs Date Time Temp Pulse Resp B/P (MAP) Pulse Ox O2 Delivery O2 Flow Rate FiO2 05/17/25 19:48 98.7 67 16 127/77 (94) 96 98.7 05/17/25 19:31 64 16 100 Room Air 05/17/25 19:31 64 16 124/79 (94) 100 Lab Test 05/17/25 21:14 05/17/25 19:38 Range/Units Hemoglobin 11.4 L 11.2 L 13.5-17.5 g/dL Hematocrit 34.2 L 32.6 L 41.0-53.0 % White Blood Count 6.4 4.4-10.8 10^3/uL Red Blood Count 3.85 L 4.5-5.90 10^6/uL Mean Corpuscular Volume 84.7 80.0-100.0 fL Mean Corpuscular Hemoglobin 29.0 28.0-32.0 pg Mean Corpuscular Hemoglobin Concent 34.2 32.0-36.0 g/dL Red Cell Distribution Width 14.4 H 11.8-14.3 % Platelet Count 168 140-450 10^3/uL Mean Platelet Volume 7.1 6.9-10.8 fL Neutrophils (%) (Auto) 55.9 37.0-80.0 % Lymphocytes (%) (Auto) 24.1 10.0-50.0 % Monocytes (%) (Auto) 9.4 0.0-12.0 % Eosinophils (%) (Auto) 9.8 H 0.0-7.0 % Basophils (%) (Auto) 0.8 0.0-2.0 % Neutrophils # (Auto) 3.6 1.6-8.6 10 ^3/uL Lymphocytes # (Auto) 1.6 0.4-5.4 10 ^3/uL Monocytes # (Auto) 0.6 0-1.3 10 ^3/uL Eosinophils # (Auto) 0.6 0-0.8 10 ^3/uL Basophils # (Auto) 0.1 0-0.2 10 ^3/uL Nucleated Red Blood Cells 0.0 % Prothrombin Time 11.6 9.3-11.8 sec Prothrombin Time INR 1.11 0.9-1.15 Activated Partial Thromboplast Time 27.1 24.5-34.5 SEC Sodium Level 144 136-145 mmol/L Potassium Level 3.7 3.5-5.1 mmol/L Chloride Level 109 H 98-107 mmol/L Carbon Dioxide Level 25 20-31 mmol/L Anion Gap 10 5-15 Blood Urea Nitrogen 15 9-23 mg/dL Creatinine 1.47 H 0.700-1.30 mg/dL Glomerular Filtration Rate Calc 49 >90 mL/min BUN/Creatinine Ratio 10.2 10.0-20.0 Serum Glucose 109 H 74-106 mg/dL Lactic Acid Level 1.5 0.4-2.0 mmol/L Calcium Level 9.3 8.7-10.4 mg/dL Total Bilirubin 0.6 0.2-1.0 mg/dL Aspartate Amino Transferase (AST) 32 <34 U/L Alanine Aminotransferase (ALT) 21 7-40 U/L Alkaline Phosphatase 82 46-116 U/L Troponin I High Sensitivity 42 </=54 ng/L Total Protein 7.4 5.7-8.2 g/dL Albumin 4.7 3.2-4.8 g/dL Lipase 31 12-53 U/L [place] [address] Ph: [phone] DIAGNOSTIC IMAGING Diagnostic Imaging Report : [id number] Signed PATIENT: TAMIA SILVESTRE ACCT: [id number] UNIT: [id number] : 1950 LOC: ER ROOM / BED: / AGE / SEX: 75 / M ADM STATUS: REG ER SERVICE 10 ORDERING PHYSICIAN: LAURIE AHUJA DO PROCEDURE(s): ABPLIV - CT AB PEL WITH IV CON ONLY REASON: rectal bleed post polyp removal ORDER NUMBER(s): [id number], ACCESSION NUMBER(s): [id number] CT OF THE ABDOMEN AND PELVIS WITH CONTRAST. HISTORY: rectal bleed post polyp removal COMPARISON: At the time of this review, the most recent prior study available for comparison is dated 03/20/2025. TECHNIQUE: Helical axial CT images of the abdomen and pelvis were obtained with intravenous contrast. Multiplanar reformats. One or more of the following radiation dose reduction techniques were used for this examination: automated exposure control, adjustment of the mA and/or kV according to patient size, use of iterative reconstruction technique. FINDINGS: Patchy, nodular opacity in the peripheral left lower lobe. Additional atelectasis/ scarring in the right lung base as well. Liver: No discrete hepatic lesions as visualized. Gallbladder and biliary system: Small dependent cholelithiasis. No significant gallbladder distention or biliary ductal dilatation. Pancreas: Negative. Spleen: Negative. Adrenal Glands: Negative. Kidneys and collecting system: No hydroureteronephrosis or sizable, obstructing urinary tract calculi identified scattered cystic hypodensities again noted in both kidneys. These can be further evaluated with ultrasound and MRI. Retroperitoneum: No evidence of abdominal aortic aneurysm. Lymph nodes: No discretely enlarged nodes identified. Bowel: Small hiatal hernia. No evidence of small-bowel obstruction. Visualized appendix appears normal caliber. Asymmetric rectal thickening is noted. No sizable focus of intraluminal contrast extravasation is noted to identify a po tential source of active bleeding at this time. No free intraperitoneal air or fluid identified. Pelvis: Symmetrical thickening of the urinary bladder. No sizable bladder calculus. Osseous structures: No destructive osseous lesions identified. IMPRESSION: Distal rectal thickening. No sizable focus of intraluminal enteric contrast extravasation is noted to indicate a potential source of bleeding at this time. Other findings as above. ATED BY: JULIO FERRER MD DICTATED DATE/TIME: 05/17/252057 SIGNED BY: JULIO FERRER MD SIGNED DATE/TIME: 05/17/252057 CC: Time of 1ST Reevaluation: 00:00 Reevaluation 1ST: N/A Patient Education/Counseling: Other (pt has dementia) Family Education/Counseling: Diagnosis, Treatment Comments Patient presented with the above HPI.----postoperative rectal bleed--workup was initiated. patient was found with the above mentioned diagnosis. the following medications were ordered: please refer to order lists of meds and tests obtained by myself Dr. Ahuja. Patient ED course and VS have been stabilized. Patient has been reassessed in the ED and remained in a stable condition. Pertinent incidental findings were discussed with the patient and/or family. Patient/family voices understanding and is agreeable with plan. Patient has been observed in the ED adequate length of time to insure improvement/stability. Escalation of care considered: Consideration of escalation to observation or admission Patient was ADMITTED to the medicine team for further evaluation and treatment of their presentation. All the reports of any imaging studies that were ordered by myself were reviewed by myself. Departure 1 Departure Time of Disposition: 20:12 Impression: Primary Impression: Rectal bleeding Additional Impression: Postoperative hemorrhage Disposition: ADMITTED INPATIENT Admit to: [facility] Condition: Guarded Discharged With: Self Critical Care Note Critical Care Time?: No I personally scribed for LAURIE AHUJA DO ([email or web address]) on 05/17/25 at 19:08. Electronically submitted by Joey Thompson ([email or web address]). I personally scribed for LAURIE AHUJA DO ([facility]) on 05/17/25 at 19:53. Electronically submitted by Joey Thompson ([facility]). I personally scribed for LAURIE AHUJA DO ([facility]) on 05/17/25 at 21:26. Electronically submitted by Joey Thompson ([facility]). LAURIE AHUJA DO May 17, 2025 19:08
[2025-05-17] MEDS: PANTOPRAZOLE 40 MG/10 ML VIAL INJ IV ONE (19:50)
[2025-05-17 19:51] LABS: Basophils # (auto) 0.1 10 ^3/uL (0-0.2); Basophils % (auto) 0.8 % (0.0-2.0); Eosinophils # (auto) 0.6 10 ^3/uL (0-0.8); Eosinophils % (auto) 9.8 % (0.0-7.0); Hematocrit 32.6 % (41.0-53.0); Hemoglobin 11.2 g/dL (13.5-17.5); Lymphocytes # (auto) 1.6 10 ^3/uL (0.4-5.4); Lymphocytes % (auto) 24.1 % (10.0-50.0); Mean Corpuscular Hgb Conc. 34.2 g/dL (32.0-36.0); Mean Corpuscular Volume 84.7 fL (80.0-100.0); Monocytes # (auto) 0.6 10 ^3/uL (0-1.3); Monocytes % (auto) 9.4 % (0.0-12.0); Neutrophils # (auto) 3.6 10 ^3/uL (1.6-8.6); Neutrophils % (auto) 55.9 % (37.0-80.0); Platelet Count (auto) 168 10^3/uL (140-450); Red Blood Cells 3.85 10^6/uL (4.5-5.90); Red Cell Distribution Width 14.4 % (11.8-14.3); White Blood Cell 6.4 10^3/uL (4.4-10.8)
[2025-05-17 20:03] LABS: INR 1.11 (0.9-1.15); Partial Thromboplastin Time 27.1 SEC (24.5-34.5); Prothrombin Time 11.6 sec (9.3-11.8)
[2025-05-17 20:07] LABS: Alanine Aminotransferase 21 U/L (7-40); Albumin 4.7 g/dL (3.2-4.8); Alkaline Phosphatase 82 U/L (46-116); Anion Gap 10 (5-15); Aspartate Aminotransferase 32 U/L (<34); BUN/Creatinine Ratio 10.2 (10.0-20.0); Blood Urea Nitrogen 15 mg/dL (9-23); Calcium 9.3 mg/dL (8.7-10.4); Carbon Dioxide 25 mmol/L (20-31); Lipase 31 U/L (12-53); Potassium 3.7 mmol/L (3.5-5.1); Sodium 144 mmol/L (136-145); Total Protein 7.4 g/dL (5.7-8.2)
[2025-05-17 20:08] LABS: Bilirubin, Total 0.6 mg/dL (0.2-1.0)
[2025-05-17 20:09] LABS: Chloride 109 mmol/L (98-107); Glucose 109 mg/dL (74-106)
[2025-05-17] MEDS: IOHEXOL 300 MG/ML 100ML BOTTLE IJ ONE (20:41)
--- NOTE | 2025-05-17 21:01 | DVH ---
CT OF THE ABDOMEN AND PELVIS WITH CONTRAST. HISTORY: rectal bleed post polyp removal COMPARISON: At the time of this review, the most recent prior study available for comparison is dated 03/20/2025. TECHNIQUE: Helical axial CT images of the abdomen and pelvis were obtained with intravenous contrast. Multiplanar reformats. One or more of the following radiation dose reduction techniques were used fo r this examination: automated exposure control, adjustment of the mA and/or kV according to patient s ize, use of iterative reconstruction technique. FINDINGS: Patchy, nodular opacity in the peripheral left lower lobe. Additional atelectasis/ scarring in the ri ght lung base as well. Liver: No discrete hepatic lesions as visualized. Gallbladder and biliary system: Small dependent cholelithiasis. No significant gallbladder distention or biliary ductal dilatation. Pancreas: Negative. Spleen: Negative. Adrenal Glands: Negative. Kidneys and collecting system: No hydroureteronephrosis or sizable, obstructing urinary tract calculi identified scattered cystic hypodensities again noted in both kidneys. These can be further evaluate d with ultrasound and MRI. Retroperitoneum: No evidence of abdominal aortic aneurysm. Lymph nodes: No discretely enlarged nodes identified. Bowel: Small hiatal hernia. No evidence of small-bowel obstruction. Visualized appendix appears norm al caliber. Asymmetric rectal thickening is noted. No sizable focus of intraluminal contrast extravas ation is noted to identify a potential source of active bleeding at this time. No free intraperitonea l air or fluid identified. Pelvis: Symmetrical thickening of the urinary bladder. No sizable bladder calculus. Osseous structures: No destructive osseous lesions identified. IMPRESSION: Distal rectal thickening. No sizable focus of intraluminal enteric contrast extravasation is noted to indicate a potential sour ce of bleeding at this time. Other findings as above.
[2025-05-17 21:35] LABS: Hematocrit 34.2 % (41.0-53.0); Hemoglobin 11.4 g/dL (13.5-17.5)
[2025-05-18 00:31] LABS: Hematocrit 34.1 % (41.0-53.0); Hemoglobin 11.4 g/dL (13.5-17.5)
--- NOTE | 2025-05-18 00:34 | DVHHP2 ---
Admitting Diagnosis: Rectal Bleed, abdominal pain History of Present Illness History Source: Patient, Spouse/Significant Other Exam Limitations: Other (Dementia) HPI Mr. Juany Amaral is a 75 yo male with known history of COPD, CKF, DM, HTN, GERD, Hiatal Hernia, Dementia who presents with a chief complaint of abdominal pain with rectal bleeding x2 bright red blood yesterday status post colonoscopy. Patient at bedside reports patient had two large bloody bright red bloody bowel movements. Patient reports he has chronic nausea and "bad acid reflux". Patient denies dizziness, vomiting, chest pain, fevers, chills. Patient admitted for further evaluation. Home Meds Active Scripts Pantoprazole Sodium Sesquihydr (Pantoprazole Sodium Dr) 40 Mg Tab, 40 MG PO DAILY, #60 TAB Prov:AYLA RAMIREZ MD 03/22/25 Quetiapine Fumerate (Seroquel) 50 Mg Tab, 0.5 TAB PO BID, #30 TAB 2 Refills GIVE 1/2 tablet (25mg) twice a day with breakfast and dinner Prov:AYLA RAMIREZ MD 03/22/25 Losartan Potassium (Losartan Potassium) 50 Mg Tab, 50 MG PO DAILY, #60 TAB Prov:AYLA RAMIREZ MD 03/22/25 Aspirin (Aspirin Low Dose) 81 Mg Tab, 81 MG PO DAILY, #60 TAB Prov:AYLA RAMIREZ MD 03/22/25 Donepezil Hydrochloride (Aricept) 5 Mg Tab, 5 MG PO QPM for 30 Days, #30 TAB Prov:AYLA RAMIREZ MD 03/22/25 Ibuprofen Micronized (Ibuprofen) 400 Mg Tab, 400 MG PO BIDP PRN for 15 Days, #30 TAB Prov:AYLA RAMIREZ MD 03/22/25 Amlodipine Besylate (Amlodipine Besylate) 10 Mg Tab, 1 TAB PO DAILY, #60 TAB Prov:AYLA RAMIREZ MD 03/22/25 Past Medical History Cardiac: HTN Pulmonary: COPD Central Nervous System: Dementia GI: GERD Hemotology/Oncology: No pertinent Hx Hepatobiliary: No pertinent Hx Psychiatric: No pertinent Hx Musculoskeletal: No pertinent Hx Rheumotologic: No pertinent Hx Infectious Disease: No peritnent Hx ENT: No pertinent Hx Renal/: No pertinent Hx Endocrine: NIDDM Dermatology: No pertinent Hx Others Hernia Patient Family History: Diabetes mellitus G8 MOTHER FH: kidney failure G8 MOTHER Smoker: Positive Alocohol: None Drugs: None Lives with: With family Domestic Violence: Neg Review of Systems Constitutional: No symptom reported Ears, Nose, & Throat: No symptom reported Eyes: No symptom reported Pulmonary/Respiratory: No symptom reported Cardiovascular: No symptom reported Gastrointestinal: Nausea, Abdominal Pain, Hematochezia Genitourinary: No symptom reported Musculoskeletal: No symptom reported Skin: No symptom reported Psychiatric: No symptom reported Endocrine: No symptom reported Hemotologic/Lymphatic: No symptom reported H&P Exam Vital Signs Vital Signs Date Time Temp Pulse Resp B/P (MAP) Pulse Ox O2 Delivery O2 Flow Rate FiO2 05/18/25 00:13 97.8 75 16 137/83 (101) 97 97.8 05/17/25 19:31 Room Air General Appeara: Well developed, Well nourished, Normal Appearance Head Exam: Normal inspection Neck Exam: Normal inspection, Non-tender, Normal alignment Eye Exam: bilateral eye Normal inspection, bilateral eye PERRL, bilateral eye EOMI Ear Exam: bilateral ear Auricle normal Nasal Exam: Normal inspection Mouth: Normal Inspection Pulmonary/Respiratory: Normal inspection, Normal breath sounds, Chest non-ten jose, Lungs clear Peripheral Pulses: 2+ dorsalis pedis (R), 2+ dorsalis pedis (L), 2+ Radial (R), 2+ Radial (L) Abdominal Exam: Normal bowel sounds, Soft, Other Abdominal Pain Onset Location: Generalized abdomen Rectal Exam: Normal inspection, Other (follow occult blood results) Back Exam: Normal inspection 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, Normal speech, PERRL Neuro/Mental St: Alert, Oriented Appearance: Appropriate appearance, Memory impairment, Other (Dementia) Eye contact/ Speech: Cooperative, Good eye contact, Normal speech Thoughts/Psych: Normal thought pattern, Other (Dementia) Coordination/Gait: Normal finger->nose, Normal gait Skin Exam: Normal inspection, Warm/dry, Pallor Labs/Xrays Labs Test 05/18/25 00:11 05/17/25 19:38 Range/Units White Blood Count 6.4 4.4-10.8 10^3/uL Red Blood Count 3.85 L 4.5-5.90 10^6/uL Mean Corpuscular Volume 84.7 80.0-100.0 fL Mean Corpuscular Hemoglobin 29.0 28.0-32.0 pg Mean Corpuscular Hemoglobin Concent 34.2 32.0-36.0 g/dL Red Cell Distribution Width 14.4 H 11.8-14.3 % Platelet Count 168 140-450 10^3/uL Mean Platelet Volume 7.1 6.9-10.8 fL Neutrophils (%) (Auto) 55.9 37.0-80.0 % Lymphocytes (%) (Auto) 24.1 10.0-50.0 % Monocytes (%) (Auto) 9.4 0.0-12.0 % Eosinophils (%) (Auto) 9.8 H 0.0-7.0 % Basophils (%) (Auto) 0.8 0.0-2.0 % Neutrophils # (Auto) 3.6 1.6-8.6 10 ^3/uL Lymphocytes # (Auto) 1.6 0.4-5.4 10 ^3/uL Monocytes # (Auto) 0.6 0-1.3 10 ^3/uL Eosinophils # (Auto) 0.6 0-0.8 10 ^3/uL Basophils # (Auto) 0.1 0-0.2 10 ^3/uL Nucleated Red Blood Cells 0.0 % Prothrombin Time 11.6 9.3-11.8 sec Prothrombin Time INR 1.11 0.9-1.15 Activated Partial Thromboplast Time 27.1 24.5-34.5 SEC Sodium Level 144 136-145 mmol/L Potassium Level 3.7 3.5-5.1 mmol/L Chloride Level 109 H 98-107 mmol/L Carbon Dioxide Level 25 20-31 mmol/L Anion Gap 10 5-15 Blood Urea Nitrogen 15 9-23 mg/dL Creatinine 1.47 H 0.700-1.30 mg/dL Glomerular Filtration Rate Calc 49 >90 mL/min BUN/Creatinine Ratio 10.2 10.0-20.0 Serum Glucose 109 H 74-106 mg/dL Lactic Acid Level 1.5 0.4-2.0 mmol/L Calcium Level 9.3 8.7-10.4 mg/dL Total Bilirubin 0.6 0.2-1.0 mg/dL Aspartate Amino Transferase (AST) 32 <34 U/L Alanine Aminotransferase (ALT) 21 7-40 U/L Alkaline Phosphatase 82 46-116 U/L Troponin I High Sensitivity 42 </=54 ng/L Total Protein 7.4 5.7-8.2 g/dL Albumin 4.7 3.2-4.8 g/dL Lipase 31 12-53 U/L Assessment/Plan Problem List: (1) Rectal bleeding (2) Postoperative hemorrhage (3) Dementia Plan This is a 75 yo male with known history of COPD, CKF, DM, HTN, GERD, Hiatal hernia, Dementia who presents to the hospital with rectal bleeding and abdominal pain status post colonoscopy procedure yesterday. 1. Rectal Bleeding 2 Abdominal Pain 3. hx of GERD 4. COPD with no exacerbation 5. DMT2 6. Chronic Hypertension 7. Hiatal Hernia 8. Dementia Plan Admit Telemetry Gastroenterology consultation serial H&H levels IV fluids Stool Occult blood x2 Protonix IV NPO Continue home medications as needed when reconciled Discussed all above with patient and patient , both verbalized agreement and understanding of care plan. All questions were answered. Discussed with supervising MD. Plan discussed with: Patient, Other Code Visit Code Visit Total Time (mins): 45 Additional Comments Additional Comments Additional Comments Patient chart is reviewed and discussed with the nurse practitioner. Patient is seen evaluated and admitted by nurse practitioner. I agree with the her evaluation, documentation, assessment and care plan as outlined. AMNA MORALES May 18, 2025 00:34 AYLA RAMIREZ MD May 18, 2025 12:40
[2025-05-18] MEDS: PANTOPRAZOLE 40 MG/10 ML VIAL INJ IV SCH (02:06)
[2025-05-18] MEDS: ONDANSETRON HCL 4 MG/2 ML VIAL IV PRN (02:06)
[2025-05-18] MEDS: MORPHINE SULFATE INJ 2 MG/ml SYRG IV PRN (02:07)
[2025-05-18 02:36] LABS: Urine Bacteria None Seen /hpf (None Seen)
[2025-05-18 02:44] LABS: Urine Blood 2+ /uL (Negative); Urine Clarity Clear (Clear); Urine Color Light-Yellow (Yellow); Urine Protein, UAD 1+ (Negative); Urine Squamous Epithelial Cell FEW /hpf (<5); Urine Urobilinogen Normal (Negative); Urine WBC 1 /HPF (0-3)
[2025-05-18 02:51] LABS: Urine Specific Gravity 1.045 (1.001-1.035)
[2025-05-18] MEDS: LORazepam 2MG/ML-1ML VIAL IV ONE (06:02)
[2025-05-18] MEDS: hydrALAZINE HCL 20 MG/ML VL IV PRN (06:48)
[2025-05-18] MEDS: dilTIAZem 25 MG/5 ML VIAL IV ONE ×2 (07:22→07:23)
[2025-05-18 08:22] VITALS: TEMP 98.4
[2025-05-18 08:27] VITALS: PULSE 91; RESP 19; O2SAT 92
[2025-05-18] MEDS: HALOPERIDOL LACTATE 5 MG/ML INJ VIAL IM ONE (12:41)
--- NOTE | 2025-05-18 13:01 | DVHDS2 ---
Discharge Summary Date of Admission May 17, 2025 at 23:31 Date of Discharge: May 18, 2025 Admitting Diagnosis Rectal bleeding Labs/Diagnostic Data: Laboratory Results Test 05/18/25 01:30 05/18/25 00:11 05/17/25 19:38 Urine Color Light-yellow (Yellow) Urine Clarity Clear (Clear) Urine pH 6.0 (5.0-9.0) Urine Specific [place] 1.045 (1.001-1.035) Urine Protein 1+ (Negative) Urine Ketones Negative (Negative) Urine Blood 2+ /uL (Negative) Urine Nitrite Negative (Negative) Urine Bilirubin Negative (Negative) Urine Urobilinogen Normal mg/dL (Negative) Urine Leukocyte Esterase Negative /uL (Negative) Urine RBC 8 /hpf (0 - 3) Urine Microscopic WBC 1 /HPF (0-3) Urine Squamous Epithelial Cells Few /hpf (<5) Urine Bacteria None seen /hpf (None Seen) Urine Glucose Normal mg/dL (Normal) Hemoglobin 11.4 g/dL (13.5-17.5) Hematocrit 34.1 % (41.0-53.0) White Blood Count 6.4 10^3/uL (4.4-10.8) Red Blood Count 3.85 10^6/uL (4.5-5.90) Mean Corpuscular Volume 84.7 fL (80.0-100.0) Mean Corpuscular Hemoglobin 29.0 pg (28.0-32.0) Mean Corpuscular Hemoglobin Concent 34.2 g/dL (32.0-36.0) Red Cell Distribution Width 14.4 % (11.8-14.3) Platelet Count 168 10^3/uL (140-450) Mean Platelet Volume 7.1 fL (6.9-10.8) Neutrophils (%) (Auto) 55.9 % (37.0-80.0) Lymphocytes (%) (Auto) 24.1 % (10.0-50.0) Monocytes (%) (Auto) 9.4 % (0.0-12.0) Eosinophils (%) (Auto) 9.8 % (0.0-7.0) Basophils (%) (Auto) 0.8 % (0.0-2.0) Neutrophils # (Auto) 3.6 10 ^3/uL (1.6-8.6) Lymphocytes # (Auto) 1.6 10 ^3/uL (0.4-5.4) Monocytes # (Auto) 0.6 10 ^3/uL (0-1.3) Eosinophils # (Auto) 0.6 10 ^3/uL (0-0.8) Basophils # (Auto) 0.1 10 ^3/uL (0-0.2) Nucleated Red Blood Cells 0.0 % Prothrombin Time 11.6 sec (9.3-11.8) Prothrombin Time INR 1.11 (0.9-1.15) Activated Partial Thromboplast Time 27.1 SEC (24.5-34.5) Sodium Level 144 mmol/L (136-145) Potassium Level 3.7 mmol/L (3.5-5.1) Chloride Level 109 mmol/L (98-107) Carbon Dioxide Level 25 mmol/L (20-31) Anion Gap 10 (5-15) Blood Urea Nitrogen 15 mg/dL (9-23) Creatinine 1.47 mg/dL (0.700-1.30) Glomerular Filtration Rate Calc 49 mL/min (>90) BUN/Creatinine Ratio 10.2 (10.0-20.0) Serum Glucose 109 mg/dL (74-106) Lactic Acid Level 1.5 mmol/L (0.4-2.0) Calcium Level 9.3 mg/dL (8.7-10.4) Total Bilirubin 0.6 mg/dL (0.2-1.0) Aspartate Amino Transferase (AST) 32 U/L (<34) Alanine Aminotransferase (ALT) 21 U/L (7-40) Alkaline Phosphatase 82 U/L (46-116) Troponin I High Sensitivity 42 ng/L (</=54) Total Protein 7.4 g/dL (5.7-8.2) Albumin 4.7 g/dL (3.2-4.8) Lipase 31 U/L (12-53) Other Laboratory Tests 05/18/25 00:11 05/17/25 19:38 Brief Hx & Hospital Course: Mr. Juany Amaral is a 75 yo male with known history of COPD, CKF, DM, HTN, GERD, Hiatal Hernia, Dementia who presents with a chief complaint of abdominal pain with rectal bleeding x2 bright red blood yesterday status post colonoscopy. Patient at bedside reports patient had two large bloody bright red bloody bowel movements. Patient reports he has chronic nausea and "bad acid reflux". Patient denies dizziness, vomiting, chest pain, fevers, chills. Patient admitted for further evaluation. He is observed in the hospital and hemoglobin remained stable. Patient had a polypectomy with colonoscopy was on aspirin. Therefore he is advised to discontinue the aspirin for 7-10 days. Otherwise no further bleeding in the hospital. Therefore he has been discharged home in stable condition. Condition at Discharge: Stable Final Diagnosis/Problems List Rectal bleeding post colonoscopy resolved, dementia with agitation Discharge Disposition: Home Discharge Instruct/Medications Diet: Consistent carbohydrate, Cardiac 2g Na,low cholest Activity: No Restrictions, As Tolerated Follow Up/Referral: GI Dr. Larson within next week post colonoscopy follow up. Follow up at [facility] urgent Care on Tuesday to repeat hemoglobin levels. To Call [phone] urgent Care at rest and directions Medications: Stopped taking aspirin blood thinner for 10 days. Continue other home medications for now and resume aspirin after 10 days. Continued Medications: Amlodipine Besylate (Amlodipine Besylate) 10 Mg Tab 1 TAB PO DAILY, #60 TAB Donepezil Hydrochloride (Aricept) 5 Mg Tab 5 MG PO QPM for 30 Days, #30 TAB Ibuprofen Micronized (Ibuprofen) 400 Mg Tab 400 MG PO BIDP PRN for 15 Days, #30 TAB Losartan Potassium (Losartan Potassium) 50 Mg Tab 50 MG PO DAILY, #60 TAB Pantoprazole Sodium Sesquihydr (Pantoprazole Sodium Dr) 40 Mg Tab 40 MG PO DAILY, #60 TAB Quetiapine Fumerate (Seroquel) 50 Mg Tab 0.5 TAB PO BID, #30 TAB 2 Refills GIVE 1/2 tablet (25mg) twice a day with breakfast and dinner Discontinued Medications: Aspirin (Aspirin Low Dose) 81 Mg Tab 81 MG PO DAILY, #60 TAB Discharge Statement: "Patient was advised to return to the ER or call 911 if any headaches, dizziness, shortness of breath, chest pain, abdominal pain, bleeding, fevers, or worsening of medical condition. Patient was counseled about treatment plan, medications, possible side effects, patientverbalized understanding. All questions were answered to the best of my ability. This discharge took greater then 30 minutes in planning, reviewing documentation, counseling the patient, and discussing with other team members." ASSESSMENT ASSESSMENT Assessment Rectal bleeding post colonoscopy resolved, dementia with agitation AYLA RAMIREZ MD May 18, 2025 13:01
[2025-05-18 13:05] VITALS: O2SAT 95
[2025-05-18 14:00] VITALS: BP 145/83; PULSE 96; RESP 90
[2025-05-18] MEDS ORDERED: DONEPEZIL HYDROCHLORIDE 5 MG TAB PO SCH (18:00)
[2025-05-18] MEDS ORDERED: QUEtiapine FUMARATE 25 MG TAB PO SCH (22:00)
[2025-05-19] MEDS ORDERED: amLODIPine BESYLATE 5 MG TAB PO SCH (10:00)
[2025-05-19] MEDS ORDERED: LOSARTAN POTASSIUM 50 MG TAB PO SCH (10:00)
[2025-05-19] MEDS ORDERED: PANTOPRAZOLE 40 MG TAB PO SCH (10:00)
--- NOTE | 2025-05-22 08:50 | ECG ---
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
== END 2025-05-18 15:34 | disposition home or self-care (01) | DRG 920 ==
LOC: EDBD 19:00 → ER 19:00 → OVERFLOW 23:31
PROVIDERS: ADMIT Nurse Practitioner Family; ATTEND Nurse Practitioner Family
DX: K91.841 Postprocedural hemorrhage of a digestive system organ or structure following other procedure (principal); F03.911 Unspecified dementia, unspecified severity, with agitation; K21.9 Gastro-esophageal reflux disease without esophagitis; E11.22 Type 2 diabetes mellitus with diabetic chronic kidney disease; J44.89 Other specified chronic obstructive pulmonary disease; I12.9 Hypertensive chronic kidney disease with stage 1 through stage 4 chronic kidney disease, or unspecified chronic kidney disease; N18.9 Chronic kidney disease, unspecified; Z79.82 Long term (current) use of aspirin; Z79.1 Long term (current) use of non-steroidal anti-inflammatories (NSAID); Z79.84 Long term (current) use of oral hypoglycemic drugs; Y84.8 Other medical procedures as the cause of abnormal reaction of the patient, or of later complication, without mention of misadventure at the time of the procedure; Y92.89 Other specified places as the place of occurrence of the external cause
CPT/HCPCS: 36415; 74177; 80053; 81001; 83605; 83690; 84484; 85014; 85018; 85025; 85610; 85730; 86850; 86900; 86901; 93005; 96361; 96374; G0378; J2405; J2470

== ENCOUNTER 2025-05-22 17:33 | Inpatient (IN) | payer OTHER, MEDICAID ==
[~2025-05-22] VITALS: Ht 172.7 cm; Wt 77.0 kg
[~2025-05-22 17:33] MED LIST changes: -ASPI-325 PO
--- NOTE | 2025-05-22 18:33 | ED.PDOC ---
Altered Mental Status HPI Comments 75y M who presents to the ED via EMS for chief complaint of ALOC. Pt presents with with noted history of dementia, who states pt has been having GI bleeding since Tuesday and was seen at and discharged on 05/18. Pt spouse states pt continues to have GI bleeding and has been difficult to handle and has been combative to deal with. Pt presents to the ED with associated abdominal pain and nausea per but pt is adamant that nothing is wrong and pt wants to go home. Pt is refusing any blood work or associated imaging studies. Pt was behaving in same manner when he came with EMS on 05/18. Pt otherwise denies any complaints at this time. Time Seen by MD: 18:29 Primary Care Provider: DEVIN Aranda Notes: Medications, Allergies Allergies: Coded Allergies: NO KNOWN ALLERGIES (Unverified , 10/29/19) Home Meds Active Scripts Pantoprazole Sodium Sesquihydr (Pantoprazole Sodium Dr) 40 Mg Tab, 40 MG PO DAILY, #60 TAB Prov:AYLA RAMIREZ MD 03/22/25 Quetiapine Fumerate (Seroquel) 50 Mg Tab, 0.5 TAB PO BID, #30 TAB 2 Refills GIVE 1/2 tablet (25mg) twice a day with breakfast and dinner Prov:AYLA RAMIREZ MD 03/22/25 Losartan Potassium (Losartan Potassium) 50 Mg Tab, 50 MG PO DAILY, #60 TAB Prov:AYLA RAMIREZ MD 03/22/25 Donepezil Hydrochloride (Aricept) 5 Mg Tab, 5 MG PO QPM for 30 Days, #30 TAB Prov:AYLA RAMIREZ MD 03/22/25 Ibuprofen Micronized (Ibuprofen) 400 Mg Tab, 400 MG PO BIDP PRN for 15 Days, #30 TAB Prov:AYLA RAMIREZ MD 03/22/25 Amlodipine Besylate (Amlodipine Besylate) 10 Mg Tab, 1 TAB PO DAILY, #60 TAB Prov:AYLA RAMIREZ MD 03/22/25 Discontinued Scripts Aspirin (Aspirin Low Dose) 81 Mg Tab, 81 MG PO DAILY, #60 TAB Prov:AYLA RAMIREZ MD 03/22/25 Information Source: Patient, Emergency Med Personnel Mode of Arrival: EMS Brought in by: EMS Severity: Moderate Timing: Hours Duration: Since onset Prehospital treatment: None Quality: None History of: Dementia Associated Signs and Symptoms: None Past Medical History PAST MEDICAL HISTORY: CKF, COPD, Dementia, DM, HTN Surgical History: Denies all surgeries Family History Family History: Reviewed,noncontributory to illness, Family hx of DM Family History (Other): CKD Social History Smoker: Non-Smoker, Other Alcohol: Denies ETOH Use Drugs: Denies Drug Use Lives In: Home Constitutional: reports: malaise, weakness; denies: chills, diaphoresis, fatigue, fever, sweats, others EENTM: denies: blurred vision, double vision, ear bleeding, ear discharge, ear drainage, ear pain, ear ringing, eye pain, eye redness, hearing loss, mouth pain, mouth swelling, nasal discharge, nose bleeding, nose congestion, nose pain, photophobia, tearing, throat pain, throat swelling, voice changes, others Respiratory: denies: cough, hemoptysis, orthopnea, SOB at rest, shortness of breath, SOB with excertion, stridor, wheezing, others Cardiovascular: denies: chest pain, dizzy spells, diaphoresis, Dyspnea on exertion, edema, irregular heart beat, left arm pain, lightheadedness, palpitations, PND, syncope, others Gastrointestinal: reports: abdominal pain, nausea; denies: abdomen distended, blood streaked bowels, constipated, diarrhea, dysphagia, difficulty swallowing, hematemesis, melena, poor appetite, poor fluid intake, rectal bleeding, rectal pain, vomiting, others Genitourinary: denies: burning, dysuria, flank pain, frequency, hematuria, incontinence, penile discharge, penile sore, pain, testicle pain, testicle swelling, urgency, others Neurological: denies: dizziness, fainting, headache, left sided numbness, left sided weakness, numbness, paresthesia, pre-existing deficit, right sided numbness, right sided weakness, seizure, speech problems, tingling, tremors, weakness, others Musculoskeletal: denies: back pain, gout, joint pain, joint swelling, muscle pain, muscle stiffness, neck pain, others Integumetry: denies: bruises, change in color, change in hair/nails, dryness, laceration, lesions, lumps, rash, wounds, others Allergic/Immunocompromised: denies: Difficulty Healing, Frequent Infections, Hives, Itching, others Hematologic/Lymphatic: denies: anemia, blood clots, easy bleeding, easy bruising, swollen glands, others Endocrine: denies: excessive hunger, excessive sweating, excessive thirst, excessive urination, flushing, intolerance to cold, intolerance to heat, unexplained weight gain, unexplained weight loss, others Psychiatric: denies: anxiety, bipolar disorder, depression, hopeless, panic disorder, schizophrenia, sleepless, suicidal, others Unable to Obtain due to: Dementia All Other Systems: Reviewed and Negative Physical Exam General Appearance: Moderate Distress HEENT: Normal ENT Inspection, Pharynx Normal, TMs Normal Neck: Full Range of Motion, Non-Tender, Normal, Normal Inspection Respiratory: Chest Non-Tender, Lungs Clear, No Accessory Muscle Use, No Respiratory Distress, Normal Breath Sounds Cardiovascular: No Edema, No JVD, No Murmur, No Gallop, Normal Peripheral Pulses, Regular Rate/Rhythm Breast Exam: Deferred Gastrointestinal: No Organomegaly, Non Tender, No Pulsatile Mass, Normal Bowel Sounds, Soft Genitalia: Deferred Pelvic: Deferred Rectal: Deferred Extremities: No calf tenderness, Normal capillary refill, Normal inspection, Normal range of motion, Non-tender, No pedal edema Musculoskeletal : Apperance: Normal Neurologic: Alert, 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 Was a procedure done?: No Differential Diagnosis (ALOC) Differential Diagnosis: Dehydration, Hypoglycemia, Encephalopathy, Closed Head Injury X-Ray, Labs, Meds, VS Vital Signs Date Time Temp Pulse Resp B/P (MAP) Pulse Ox O2 Delivery O2 Flow Rate FiO2 05/22/25 18:49 117 22 153/92 (112) 97 Lab Test 05/22/25 18:20 Range/Units White Blood Count 12.1 #H 4.4-10.8 10^3/uL Red Blood Count 3.94 L 4.5-5.90 10^6/uL Hemoglobin 11.1 L 13.5-17.5 g/dL Hematocrit 33.5 L 41.0-53.0 % Mean Corpuscular Volume 84.9 80.0-100.0 fL Mean Corpuscular Hemoglobin 28.0 28.0-32.0 pg Mean Corpuscular Hemoglobin Concent 33.0 32.0-36.0 g/dL Red Cell Distribution Width 14.4 H 11.8-14.3 % Platelet Count 212 140-450 10^3/uL Mean Platelet Volume 8.3 6.9-10.8 fL Neutrophils (%) (Auto) 65.7 37.0-80.0 % Lymphocytes (%) (Auto) 22.4 10.0-50.0 % Monocytes (%) (Auto) 9.6 0.0-12.0 % Eosinophils (%) (Auto) 1.4 0.0-7.0 % Basophils (%) (Auto) 0.9 0.0-2.0 % Neutrophils # (Auto) 7.9 1.6-8.6 10 ^3/uL Lymphocytes # (Auto) 2.7 0.4-5.4 10 ^3/uL Monocytes # (Auto) 1.2 0-1.3 10 ^3/uL Eosinophils # (Auto) 0.2 0-0.8 10 ^3/uL Basophils # (Auto) 0.1 0-0.2 10 ^3/uL Nucleated Red Blood Cells 0.4 % Sodium Level 142 136-145 mmol/L Potassium Level 3.4 L 3.5-5.1 mmol/L Chloride Level 105 98-107 mmol/L Carbon Dioxide Level 21 20-31 mmol/L Anion Gap 16 H 5-15 Blood Urea Nitrogen 32 H 9-23 mg/dL Creatinine 3.38 H 0.700-1.30 mg/dL Glomerular Filtration Rate Calc 18 >90 mL/min BUN/Creatinine Ratio 9.5 L 10.0-20.0 Serum Glucose 152 H 74-106 mg/dL Calcium Level 10.4 8.7-10.4 mg/dL Plasma/Serum Blood Alcohol < 3.0 <10 mg/dL The patient's CBC shows an elevated white blood cell count of 12.1 The rest of the CBC is within normal limits The chemistry panel shows a BUN of 32 and creatinine of 3.38 At this time, the patient will be admitted The patient has not given us a urine sample yet The patient required four point restraints because he got somewhat belligerent The patient is being admitted at this time Time of 1ST Reevaluation: 19:00 Reevaluation 1ST: Unchanged Patient Education/Counseling: Diagnosis, Treatment, Prognosis Family Education/Counseling: No Family Present SEPSIS Sepsis Screen Physician Orders Drug Screen (05/22/25 17:56) Urinalysis (05/22/25 17:56) Type And Screen (05/22/25 18:24) Behavioral Restraints (05/22/25 18:52) Restraint Assessment Behaviora Q15M (05/22/25 18:52) Vital Signs Date Time Temp Pulse Resp B/P (MAP) Pulse Ox O2 Delivery O2 Flow Rate FiO2 05/22/25 18:49 117 22 153/92 (112) 97 Laboratory Tests Test 05/22/25 18:20 White Blood Count 12.1 10^3/uL (4.4-10.8) #H Departure 1 Departure Time of Disposition: 19:23 Impression: Primary Impression: Dementia Qualified Codes: F03.B11 - Unspecified dementia, moderate, with agitation Disposition: ADMITTED INPATIENT Admit to: Med Surg Condition: Fair Critical Care Note Critical Care Time?: No Stability Stability form required: No Heart Score Heart Score: Heart Score Response (Comments) Value History N/A 0 EKG N/A 0 Age N/A 0 Risk Factors N/A 0 Troponin N/A 0 Total 0 I personally scribed for JERAMY LAMBERT MD ([email or web address]) on 05/22/25 at 18:33. Electronically submitted by Joey Thompson ([email or web address]). JERAMY LAMBERT MD May 22, 2025 18:33
[2025-05-22 18:38] LABS: Hematocrit 33.5 % (41.0-53.0); Hemoglobin 11.1 g/dL (13.5-17.5); Mean Corpuscular Hemoglobin 28.0 pg (28.0-32.0); Mean Corpuscular Volume 84.9 fL (80.0-100.0); Nucleated Red Blood Cells % 0.4 %
[2025-05-22 18:47] LABS: Chloride 105 mmol/L (98-107); Sodium 142 mmol/L (136-145)
[2025-05-22 18:48] LABS: Anion Gap 16 (5-15); Carbon Dioxide 21 mmol/L (20-31)
[2025-05-22 18:53] LABS: BUN/Creatinine Ratio 9.5 (10.0-20.0)
[2025-05-22 18:55] LABS: Blood Urea Nitrogen 32 mg/dL (9-23); Calcium 10.4 mg/dL (8.7-10.4); Glucose 152 mg/dL (74-106); Potassium 3.4 mmol/L (3.5-5.1)
[2025-05-22 20:00] VITALS: PULSE 99; RESP 13; O2SAT 97
[2025-05-22] MEDS: LORazepam 2MG/ML-1ML VIAL IM ONE (23:13)
[2025-05-22] MEDS ORDERED: DOCUSATE SOD 100 MG CAP PO PRN (23:30)
[2025-05-22] MEDS ORDERED: MORPHINE SULFATE INJ 2 MG/ml SYRG IV PRN (23:30)
[2025-05-22] MEDS: SOD CHL 0.45% 1,000 ML IV SCH (23:30)
[2025-05-22] MEDS ORDERED: NITROGLYCERIN 0.4 MG SL TAB SL PRN (23:30)
[2025-05-22] MEDS ORDERED: ONDANSETRON HCL 4 MG/2 ML VIAL IV PRN (23:30)
[2025-05-22] MEDS: HALOPERIDOL LACTATE 5 MG/ML INJ VIAL IM ONE (23:42)
[2025-05-23] VITALS (7 sets, daily range): BP systolic 109–135; BP diastolic 71–83; PULSE 72–98; RESP 16–20; TEMP 97.7–98.2; O2SAT 97–99
--- NOTE | 2025-05-23 00:46 | DVHHP2 ---
LEIF WINTERS CAR EXAMINER 05/23/25 0046: History of Present Illness Reason for Visit: BRBPR History of Present Illness 75-year-old male with past medical history of dementia is brought in by his with complaints of bright red blood per rectum. Information in this HPI is limited due to the patient's dementia and agitation. Acquired from the patient's via telephone. Patient was taken to [facility] to follow up on CBC and patient was refusing to have blood drawn. [facility] physician advise patient's to take patient to the emergency department to have CBC drawn. As per the patient's patient is still experiencing abdominal pain and multiple episodes of bright red blood in his brief. During the emergency department evaluation BUN 32, creatinine 3.38, GFR 18. On 05/17/2025 BUN 15, creatinine 1.47, GFR 49. Patient's endorses that the patient is not eating or drinking. Patient admitted for further evaluation and treatment. Pulmonary: COPD ALCOHOL: none Drugs: Marijuana Lives: with Family Review of Systems Constitutional: No: Fever, Chills, Sweats, Weakness, Malaise, Other Eyes: No: Pain, Vision change, Conjunctivae inflammation, Eyelid inflammation, Other, Redness ENT: No: Ear pain, Ear discharge, Nose pain, Nose discharge, Nose congestion, Mouth pain, Mouth swelling, Throat pain, Throat swelling, Other Respiratory: No: Cough, Dry, Shortness of breath, SOB with excertion, Wheezing, Hemoptysis, Pleuritic Pain, Sputum, Wheezing, Other Gastrointestinal: Abdominal Pain, Hematochezia; No: Nausea, Vomiting, Diarrhea, Constipation, Melena, Other Genitourinary: No Dysuria, No Frequency, No Incontinence, No Hematuria, No Retention, No Other Musculoskeletal: No: other, neck pain, shoulder pain, arm pain, back pain, hand pain, leg pain, foot pain Skin: No: Rash, Lesions, Jaundice, Bruising, Other Neurological: Other; No: Weakness, Numbness, Incoordination, Change in speech, Confusion, Seizures Allergies: Coded Allergies: NO KNOWN ALLERGIES (Unverified , 10/29/19) Medications Current Medications Medications Dose Ordered Sig/Tricia Route Start Time Stop Time Status Last Admin Dose Admin Docusate Sodium 100 mg BIDPRN PRN PO 05/22/25 23:30 Acetaminophen 650 mg Q6HP PRN PO 05/22/25 23:30 Ondansetron HCl 4 mg Q4HP PRN IV 05/22/25 23:30 Nitroglycerin 0.4 mg Q5MINP PRN SL 05/22/25 23:30 Morphine Sulfate 2 mg Q30M PRN IV 05/22/25 23:30 Quetiapine Fumarate 25 mg BID PO 05/22/25 23:30 Donepezil HCl 5 mg HS PO 05/23/25 22:00 Sodium Chloride 1,000 ml @ 75 mls/hr [id number] IV 05/22/25 23:30 Pantoprazole Sodium 40 mg DAILY IV 05/23/25 10:00 Amlodipine Besylate 10 mg DAILY PO 05/23/25 10:00 Exam Vital Signs Vital Signs Date Time Temp Pulse Resp B/P (MAP) Pulse Ox O2 Delivery O2 Flow Rate FiO2 05/22/25 21:00 90 17 148/94 (112) 95 05/22/25 20:00 Room Air* 0 21 General Appearance: Alert, No acute distress, Other (Non cooperative) HEENT: Atraumatic, PERRLA, EOMI Respiratory: Clear to auscultation, Normal air movement Cardiovascular: Normal S1, Normal S2 Abdominal: Soft Extremities: No cyanosis, No edema Neuro: Normal speech, Strength at 5/5 X4 ext, Other (At baseline with history of dementia) Psych/Mental Status: Other (Non cooperative, agitated,) Labs/Xrays Labs Test 05/22/25 18:20 Range/Units White Blood Count 12.1 #H 4.4-10.8 10^3/uL Red Blood Count 3.94 L 4.5-5.90 10^6/uL Hemoglobin 11.1 L 13.5-17.5 g/dL Hematocrit 33.5 L 41.0-53.0 % Mean Corpuscular Volume 84.9 80.0-100.0 fL Mean Corpuscular Hemoglobin 28.0 28.0-32.0 pg Mean Corpuscular Hemoglobin Concent 33.0 32.0-36.0 g/dL Red Cell Distribution Width 14.4 H 11.8-14.3 % Platelet Count 212 140-450 10^3/uL Mean Platelet Volume 8.3 6.9-10.8 fL Neutrophils (%) (Auto) 65.7 37.0-80.0 % Lymphocytes (%) (Auto) 22.4 10.0-50.0 % Monocytes (%) (Auto) 9.6 0.0-12.0 % Eosinophils (%) (Auto) 1.4 0.0-7.0 % Basophils (%) (Auto) 0.9 0.0-2.0 % Neutrophils # (Auto) 7.9 1.6-8.6 10 ^3/uL Lymphocytes # (Auto) 2.7 0.4-5.4 10 ^3/uL Monocytes # (Auto) 1.2 0-1.3 10 ^3/uL Eosinophils # (Auto) 0.2 0-0.8 10 ^3/uL Basophils # (Auto) 0.1 0-0.2 10 ^3/uL Nucleated Red Blood Cells 0.4 % Sodium Level 142 136-145 mmol/L Potassium Level 3.4 L 3.5-5.1 mmol/L Chloride Level 105 98-107 mmol/L Carbon Dioxide Level 21 20-31 mmol/L Anion Gap 16 H 5-15 Blood Urea Nitrogen 32 H 9-23 mg/dL Creatinine 3.38 H 0.700-1.30 mg/dL Glomerular Filtration Rate Calc 18 >90 mL/min BUN/Creatinine Ratio 9.5 L 10.0-20.0 Serum Glucose 152 H 74-106 mg/dL Calcium Level 10.4 8.7-10.4 mg/dL Plasma/Serum Blood Alcohol < 3.0 <10 mg/dL Assessment/Plan Assessment/Plan Acute kidney injury reported hematochezia Dementia with agitation Plan Admit medical floor Nephrology consult. Monitor BMP. Trend. BUN/creatinine. IV Fluids G.I. consult. Social service consult for home safety evaluation. Continue home medication's GI ppx protonix / DVT ppx scd Plan discussed with: Patient, Spouse My Orders Orders - LEIF WINTERS NP Procedure Category Date Status Time Admit ADMIT 05/22/25 Transmitted 23:17 Code Status CODE 05/22/25 Transmitted 23:17 Vital Signs UJLIAN 05/22/25 In Process 23:17 Review Orders With JULIAN 05/22/25 In Process Adm. 23:17 Encourage Activity As JULIAN 05/22/25 In Process Tolerate 23:17 Consistent DIET 05/23/25 Transmitted [facility]Diabetes Breakfast Oxygen By Face Mask RT 7/2/25 Transmitted 23:17 Docusate Sodium PHA 05/22/25 In Process Capsule (Colace 23:30 Acetaminophen Tablet PHA 05/22/25 In Process (Tylenol Tablet) 23:30 Notify Of Changes JULIAN 05/22/25 In Process From Base 23:17 Advance Directive JULIAN 05/22/25 In Process 23:17 Basic Metabolic Panel LAB 05/23/25 Logged 05:00 Basic Metabolic Panel LAB 05/24/25 Verified 05:00 Basic Metabolic Panel LAB 05/25/25 Verified 05:00 Urinalysis LAB 05/22/25 Logged 23:17 Complete Blood Count LAB 05/23/25 Logged 05:00 Complete Blood Count LAB 05/24/25 Verified 05:00 Complete Blood Count LAB 05/25/25 Verified 05:00 Patient Condition ORDERS 05/22/25 Transmitted 23:17 Allergies JULIAN 05/22/25 In Process 23:17 Ondansetron Hcl PHA 05/22/25 In Process (Zofran) 23:30 Drug Screen LAB 05/22/25 Logged 23:17 Nitroglycerin PHA 05/22/25 In Process Sublingual (Ntrostat 23:30 Morphine Sulfate PHA 05/22/25 In Process Injection 23:30 Stat Ekg For Chest JULIAN 05/22/25 In Process Pain 23:17 Notify Md Of Changes JULIAN 05/22/25 In Process From Base 23:17 Furniture Installer For JULIAN 05/22/25 In Process 24 Hours 23:17 Emergency Dysrhythmia JULIAN 05/22/25 In Process Protocol 23:17 Rhythm Strips Once JULIAN 05/22/25 In Process Every Shift 23:17 Oxygen By Nasal RT 05/22/25 Transmitted Cannula 23:17 Quetiapine Fumarate PHA 05/22/25 In Process Tablet (Seroquel Tab 23:30 Donepezil Tablet PHA 05/23/25 In Process (Aricept Tablet) 22:00 * Utility Appraiser CONS 05/22/25 Transmitted Consult *[facility] CONS 05/22/25 Transmitted -[place] 23:17 Sod Chl 0.45% (Sodium PHA 05/22/25 In Process Chloride 0.45% Via 23:30 Pantoprazole PHA 05/23/25 In Process (Protonix) 10:00 Amlodipine Tablet PHA 05/23/25 In Process (Norvasc Tablet) 10:00 Sitter At Bedside ORDERS 05/22/25 Transmitted 23:53 Date of Service: May 23, 2025 Billing Provider: JAMES HENDRIX MD Common Visit Codes: NOT BILLABLE JAMES HENDRIX MD 05/23/25 1401: Review of Systems Allergies: Coded Allergies: NO KNOWN ALLERGIES (Unverified , 10/29/19) Additional Comments Additional Comments Additional Comments 75-year-old male with a known history of hypertension, Alzheimer dementia, behavior disorder who was brought in by with a bright red blood per rectum and agitation found to have 1. Bright red blood per rectum 2. Acute kidney injury suspected secondary to vasomotor nephropathy/losartan induced 3. Mild leukocytosis 4. Alzheimer dementia 5. Behavior disorder 6. Hypertension -keep holding losartan, IV hydration, monitor H&H -physical therapy evaluation and treatment. LEIF WINTERS NP May 23, 2025 00:46 JAMES HENDRIX MD May 23, 2025 14:01
[2025-05-23 07:09] LABS: Chloride 106 mmol/L (98-107); Sodium 143 mmol/L (136-145)
[2025-05-23 07:10] LABS: Anion Gap 14 (5-15); Carbon Dioxide 23 mmol/L (20-31)
[2025-05-23 07:11] LABS: Calcium 9.1 mg/dL (8.7-10.4)
[2025-05-23 07:13] LABS: Hematocrit 29.9 % (41.0-53.0); Hemoglobin 10.0 g/dL (13.5-17.5); Mean Corpuscular Hemoglobin 28.5 pg (28.0-32.0); Mean Corpuscular Volume 84.9 fL (80.0-100.0); Nucleated Red Blood Cells % 0.2 %
[2025-05-23 07:16] LABS: BUN/Creatinine Ratio 15.1 (10.0-20.0); Glucose 91 mg/dL (74-106)
[2025-05-23 07:19] LABS: Blood Urea Nitrogen 36 mg/dL (9-23); Potassium 3.2 mmol/L (3.5-5.1)
[2025-05-23] MEDS: PANTOPRAZOLE 40 MG/10 ML VIAL INJ IV SCH (11:35)
--- NOTE | 2025-05-23 14:53 | DVHINCON2 ---
Date of service: May 23, 2025 Reason for Consultation Acute kidney injury History of Present Illness 75-year-old male past medical history of hypertension dementia was brought to the hospital by family due to bright red blood in stool. Nephrology consulted due to elevated creatinine level Based on home reconciliation patient has listed ibuprofen Allergies: Coded Allergies: NO KNOWN ALLERGIES (Unverified , 10/29/19) Home Meds Active Scripts Pantoprazole Sodium Sesquihydr (Pantoprazole Sodium Dr) 40 Mg Tab, 40 MG PO JOSEPH LY, #60 TAB Prov:AYLA RAMIREZ MD 03/22/25 Quetiapine Fumerate (Seroquel) 50 Mg Tab, 0.5 TAB PO BID, #30 TAB 2 Refills GIVE 1/2 tablet (25mg) twice a day with breakfast and dinner Prov:AYLA RAMIREZ MD 03/22/25 Losartan Potassium (Losartan Potassium) 50 Mg Tab, 50 MG PO DAILY, #60 TAB Prov:AYLA RAMIREZ MD 03/22/25 Donepezil Hydrochloride (Aricept) 5 Mg Tab, 5 MG PO QPM for 30 Days, #30 TAB Prov:AYLA RAMIREZ MD 03/22/25 Ibuprofen Micronized (Ibuprofen) 400 Mg Tab, 400 MG PO BIDP PRN for 15 Days, #30 TAB Prov:AYLA RAMIREZ MD 03/22/25 Amlodipine Besylate (Amlodipine Besylate) 10 Mg Tab, 1 TAB PO DAILY, #60 TAB Prov:AYLA RAMIREZ MD 03/22/25 Discontinued Scripts Aspirin (Aspirin Low Dose) 81 Mg Tab, 81 MG PO DAILY, #60 TAB Prov:AYLA RAMIREZ MD 03/22/25 Current Medications Current Medications Medications (Trade) Dose Ordered Sig/Tricia Route PRN Reason Start Time Stop Time Status Last Admin Docusate Sodium (Colace Capsule) 100 mg BIDPRN PRN PO FOR CONSTIPATION 05/22/25 23:30 Acetaminophen (Tylenol Tablet) 650 mg Q6HP PRN PO PAIN SCALE 1-3 OR TEMP>100.4 05/22/25 23:30 Ondansetron HCl (Zofran) 4 mg Q4HP PRN IV NAUSEA / VOMITING 05/22/25 23:30 Nitroglycerin (Ntrostat Sublingual) 0.4 mg Q5MINP PRN SL FOR CHEST PAIN 05/22/25 23:30 Morphine Sulfate 2 mg Q30M PRN IV FOR CHEST PAIN 05/22/25 23:30 Quetiapine Fumarate (SEROquel TABLET) 25 mg BID PO 05/22/25 23:30 Donepezil HCl (Aricept Tablet) 5 mg HS PO 05/23/25 22:00 Sodium Chloride 1,000 ml @ 75 mls/hr [id number] IV 05/22/25 23:30 05/23/25 11:26 Pantoprazole Sodium (Protonix) 40 mg DAILY IV 05/23/25 10:00 05/23/25 11:35 Amlodipine Besylate (Norvasc Tablet) 10 mg DAILY PO 05/23/25 10:00 05/23/25 10:33 Family History: Diabetes mellitus G8 MOTHER FH: kidney failure G8 MOTHER H&P Exam Vital Signs/I&O Vital Sign Date Time Temp Pulse Resp B/P (MAP) Pulse Ox O2 Delivery O2 Flow Rate FiO2 05/23/25 13:00 97.9 76 20 132/78 (96) 97 97.9 05/23/25 08:00 Room Air* 0 21 Intake and Output 05/22/25 05/23/25 19:00 07:00 Intake Total 400 ml Balance 400 ml Intake Oral 400 ml Physical Exam Elderly male Not in overt distress Abdomen is soft No pitting edema Labs/Diagnostic Data Labs/Diagnostic Data Laboratory Tests Test 05/23/25 06:32 05/22/25 18:20 Range/Units White Blood Count 6.1 # 12.1 #H 4.4-10.8 10^3/uL Red Blood Count 3.52 L 3.94 L 4.5-5.90 10^6/uL Hemoglobin 10.0 L 11.1 L 13.5-17.5 g/dL Hematocrit 29.9 #L 33.5 L 41.0-53.0 % Mean Corpuscular Volume 84.9 84.9 80.0-100.0 fL Mean Corpuscular Hemoglobin 28.5 28.0 28.0-32.0 pg Mean Corpuscular Hemoglobin Concent 33.5 33.0 32.0-36.0 g/dL Red Cell Distribution Width 14.6 H 14.4 H 11.8-14.3 % Platelet Count 149 212 140-450 10^3/uL Mean Platelet Volume 8.2 8.3 6.9-10.8 fL Neutrophils (%) (Auto) 59.6 65.7 37.0-80.0 % Lymphocytes (%) (Auto) 24.4 22.4 10.0-50.0 % Monocytes (%) (Auto) 10.6 9.6 0.0-12.0 % Eosinophils (%) (Auto) 4.4 1.4 0.0-7.0 % Basophils (%) (Auto) 1.0 0.9 0.0-2.0 % Neutrophils # (Auto) 3.6 7.9 1.6-8.6 10 ^3/uL Lymphocytes # (Auto) 1.5 2.7 0.4-5.4 10 ^3/uL Monocytes # (Auto) 0.6 1.2 0-1.3 10 ^3/uL Eosinophils # (Auto) 0.3 0.2 0-0.8 10 ^3/uL Basophils # (Auto) 0.1 0.1 0-0.2 10 ^3/uL Nucleated Red Blood Cells 0.2 0.4 % Sodium Level 143 142 136-145 mmol/L Potassium Level 3.2 L 3.4 L 3.5-5.1 mmol/L Chloride Level 106 105 98-107 mmol/L Carbon Dioxide Level 23 21 20-31 mmol/L Anion Gap 14 16 H 5-15 Blood Urea Nitrogen 36 H 32 H 9-23 mg/dL Creatinine 2.38 H 3.38 H 0.700-1.30 mg/dL Glomerular Filtration Rate Calc 28 18 >90 mL/min BUN/Creatinine Ratio 15.1 9.5 L 10.0-20.0 Serum Glucose 91 152 H 74-106 mg/dL Calcium Level 9.1 10.4 8.7-10.4 mg/dL Plasma/Serum Blood Alcohol < 3.0 <10 mg/dL Assessment 75-year-old elderly male admitted to the hospital for bright red blood per rectum Acute kidney injury hemodynamically mediated CKD unspecified Gastrointestinal bleeding likely NSAID induced possibly related to ulcer Dementia Hypotension Recommend IV fluid hydration Avoid hypotension No further use of nonsteroidal anti-inflammatory drugs Gastroenterology Replace electrolytes Rest of care as per primary medical team Total care time 70 minutes Plan discussed with: Other BARB MARRUFO MD May 23, 2025 14:53
[2025-05-23] MEDS: ACETAMINOPHEN 325 MG TAB PO PRN (18:55)
[2025-05-23] MEDS: DONEPEZIL HYDROCHLORIDE 5 MG TAB PO SCH (20:50)
[2025-05-24 01:00] VITALS: BP 107/64; PULSE 73; RESP 19; TEMP 97.4; O2SAT 98
[2025-05-24] MEDS: HALOPERIDOL LACTATE 5 MG/ML INJ VIAL IM ONE (05:25)
[2025-05-24 08:17] VITALS: RESP 18
--- NOTE | 2025-05-24 13:18 | DVHDS2 ---
Discharge Summary Date of Admission May 22, 2025 at 23:17 Date of Discharge: May 24, 2025 Labs/Diagnostic Data: Laboratory Results Test 05/23/25 06:32 05/22/25 18:20 White Blood Count 6.1 10^3/uL (4.4-10.8) Red Blood Count 3.52 10^6/uL (4.5-5.90) Hemoglobin 10.0 g/dL (13.5-17.5) Hematocrit 29.9 % (41.0-53.0) Mean Corpuscular Volume 84.9 fL (80.0-100.0) Mean Corpuscular Hemoglobin 28.5 pg (28.0-32.0) Mean Corpuscular Hemoglobin Concent 33.5 g/dL (32.0-36.0) Red Cell Distribution Width 14.6 % (11.8-14.3) Platelet Count 149 10^3/uL (140-450) Mean Platelet Volume 8.2 fL (6.9-10.8) Neutrophils (%) (Auto) 59.6 % (37.0-80.0) Lymphocytes (%) (Auto) 24.4 % (10.0-50.0) Monocytes (%) (Auto) 10.6 % (0.0-12.0) Eosinophils (%) (Auto) 4.4 % (0.0-7.0) Basophils (%) (Auto) 1.0 % (0.0-2.0) Neutrophils # (Auto) 3.6 10 ^3/uL (1.6-8.6) Lymphocytes # (Auto) 1.5 10 ^3/uL (0.4-5.4) Monocytes # (Auto) 0.6 10 ^3/uL (0-1.3) Eosinophils # (Auto) 0.3 10 ^3/uL (0-0.8) Basophils # (Auto) 0.1 10 ^3/uL (0-0.2) Nucleated Red Blood Cells 0.2 % Sodium Level 143 mmol/L (136-145) Potassium Level 3.2 mmol/L (3.5-5.1) Chloride Level 106 mmol/L (98-107) Carbon Dioxide Level 23 mmol/L (20-31) Anion Gap 14 (5-15) Blood Urea Nitrogen 36 mg/dL (9-23) Creatinine 2.38 mg/dL (0.700-1.30) Glomerular Filtration Rate Calc 28 mL/min (>90) BUN/Creatinine Ratio 15.1 (10.0-20.0) Serum Glucose 91 mg/dL (74-106) Calcium Level 9.1 mg/dL (8.7-10.4) Plasma/Serum Blood Alcohol < 3.0 mg/dL (<10) Other Laboratory Tests 05/23/25 06:32 Brief Hx & Hospital Course: 75-year-old male with a known history of hypertension, Alzheimer dementia, behavior disorder who was brought in by with a bright red blood per rectum and agitation found to have acute kidney injury suspected secondary to vasomotor nephropathy. Patient's losartan was held. Patient's hospital course was eventful for agitation and behavior disorder. Patient does have Alzheimer dementia. Patient left against medical advice before completion of workup and treatment. Condition at Discharge: Undetermined Final Diagnosis/Problems List 75-year-old male with a known history of hypertension, Alzheimer dementia, behavior disorder who was brought in by with a bright red blood per rectum and agitation found to have 1. Bright red blood per rectum 2. Acute kidney injury suspected secondary to vasomotor nephropathy/losartan induced 3. Mild leukocytosis 4. Alzheimer dementia 5. Behavior disorder 6. Hypertension Patient left against medical advice Discharge Disposition: AMA SNF Discharge Will this Physician continue t: No Discharge Instruct/Medications Scheduled Amlodipine Besylate (Amlodipine Besylate), 1 TAB PO DAILY Donepezil Hydrochloride (Aricept), 5 MG PO QPM Losartan Potassium (Losartan Potassium), 50 MG PO DAILY Pantoprazole Sodium Sesquihydr (Pantoprazole Sodium Dr), 40 MG PO DAILY Quetiapine Fumerate (Seroquel), 0.5 TAB PO BID Scheduled PRN Ibuprofen Micronized (Ibuprofen), 400 MG PO BIDP PRN Discontinued Medications Aspirin (Aspirin Low Dose), 81 MG PO DAILY Discharge Statement: "Patient was advised to return to the ER or call 911 if any headaches, dizziness, shortness of breath, chest pain, abdominal pain, bleeding, fevers, or worsening of medical condition. Patient was counseled about treatment plan, medications, possible side effects, patientverbalized understanding. All questions were answered to the best of my ability. This discharge took greater then 30 minutes in planning, reviewing documentation, counseling the patient, and discussing with other team members." ASSESSMENT ASSESSMENT Assessment Date of Service: May 24, 2025 Billing Provider: JAMES HENDRIX MD Common Visit Codes: NOT BILLABLE JAMES HENDRIX MD May 24, 2025 13:18
== END 2025-05-24 09:00 | disposition left against medical advice (07) | DRG 377 ==
LOC: ER 17:33 → EDBD 17:33 → OVERFLOW 23:17 → CENTRAL 05-23 01:16
PROVIDERS: ADMIT Hospitalist; ATTEND Hospitalist
DX: K25.4 Chronic or unspecified gastric ulcer with hemorrhage (principal); N17.0 Acute kidney failure with tubular necrosis; F02.B11 Dementia in other diseases classified elsewhere, moderate, with agitation; K92.1 Melena; N18.9 Chronic kidney disease, unspecified; G30.9 Alzheimer's disease, unspecified; J44.9 Chronic obstructive pulmonary disease, unspecified; E11.22 Type 2 diabetes mellitus with diabetic chronic kidney disease; I12.9 Hypertensive chronic kidney disease with stage 1 through stage 4 chronic kidney disease, or unspecified chronic kidney disease; I95.9 Hypotension, unspecified; F91.9 Conduct disorder, unspecified; D72.829 Elevated white blood cell count, unspecified; Z53.29 Procedure and treatment not carried out because of patient's decision for other reasons; Z83.3 Family history of diabetes mellitus; T46.5X5A Adverse effect of other antihypertensive drugs, initial encounter; Y92.89 Other specified places as the place of occurrence of the external cause
CPT/HCPCS: 36415; 80048; 80320; 85025; 86850; 86900; 86901; 96372; G0378; J2470

== ENCOUNTER 2025-06-27 12:23 | Inpatient (IN) | payer OTHER, MEDICAID ==
[~2025-06-27] VITALS: Ht 177.8 cm; Wt 73.3 kg
[2025-06-27] MEDS: MORPHINE SULFATE INJ 2 MG/ml SYRG IV ONE (12:45)
[2025-06-27] MEDS: ONDANSETRON HCL 4 MG/2 ML VIAL IV ONE (12:45)
--- NOTE | 2025-06-27 13:08 | ED.PDOC ---
GI ASSESSMENT HPI Comments 75y M with a history of dementia, COPD, CKD, diabetes, hypertension, GERD, hiatal hernia and post colonoscopy early hemorrhage April 2025 presents to the ED via EMS for chief complaint of abdominal pain and black stool. Pt with history of dementia, ax0x2 baseline, and lives with spouse and spouse called EMS stating patient been having abdominal pain for the past 1x month. EMS arrived on scene and pt states he has been having "black" bowel movements daily for the past 1x month. Pt in the ED, states he also feels "thirsty", with associated shortness of breath and associated whole body pain. EMS noted stable vitals and pt was brought to the ED with no interventions performed. Pt in the ED, otherwise d enies any other complaints. Chief Complaint: Abdominal Pain Time Seen by MD: 12:50 Primary Care Provider: DEVIN Reviewed Notes: Importer Or Exporter Notes, Medications, Allergies Allergies: Coded Allergies: NO KNOWN ALLERGIES (Unverified , 10/29/19) Home Meds Active Scripts Pantoprazole Sodium Sesquihydr (Pantoprazole Sodium Dr) 40 Mg Tab, 40 MG PO DAILY, #60 TAB Prov:AYLA RAMIREZ MD 03/22/25 Quetiapine Fumerate (Seroquel) 50 Mg Tab, 0.5 TAB PO BID, #30 TAB 2 Refills GIVE 1/2 tablet (25mg) twice a day with breakfast and dinner Prov:AYLA RAMIREZ MD 03/22/25 Losartan Potassium (Losartan Potassium) 50 Mg Tab, 50 MG PO DAILY, #60 TAB Prov:AYLA RAMIREZ MD 03/22/25 Donepezil Hydrochloride (Aricept) 5 Mg Tab, 5 MG PO QPM for 30 Days, #30 TAB Prov:AYLA RAMIREZ MD 03/22/25 Ibuprofen Micronized (Ibuprofen) 400 Mg Tab, 400 MG PO BIDP PRN for 15 Days, #30 TAB Prov:AYLA RAMIREZ MD 03/22/25 Amlodipine Besylate (Amlodipine Besylate) 10 Mg Tab, 1 TAB PO DAILY, #60 TAB Prov:AYLA RAMIREZ MD 03/22/25 Information Source: Patient, Emergency Med Personnel Mode of Arrival: EMS Past Medical History PAST MEDICAL HISTORY: CKF, COPD, Dementia, DM, HTN Past Medical History (Other): Admitted with post colonoscopy hemorrhage in April 2025 Family History Family History: Reviewed,noncontributory to illness, Family hx of DM Family History (Other): CKD Social History Smoker: Non-Smoker, Other Alcohol: Denies ETOH Use Drugs: Denies Drug Use Lives In: Home Constitutional: denies: chills, diaphoresis, fatigue, fever, malaise, sweats, weakness, others EENTM: denies: blurred vision, double vision, ear bleeding, ear discharge, ear drainage, ear pain, ear ringing, eye pain, eye redness, hearing loss, mouth pain, mouth swelling, nasal discharge, nose bleeding, nose congestion, nose pain, photophobia, tearing, throat pain, throat swelling, voice changes, others Respiratory: denies: cough, hemoptysis, orthopnea, SOB at rest, shortness of breath, SOB with excertion, stridor, wheezing, others Cardiovascular: denies: chest pain, dizzy spells, diaphoresis, Dyspnea on exertion, edema, irregular heart beat, left arm pain, lightheadedness, palpitations, PND, syncope, others Gastrointestinal: reports: abdominal pain; denies: abdomen distended, blood streaked bowels, constipated, diarrhea, dysphagia, difficulty swallowing, hematemesis, melena, nausea, poor appetite, poor fluid intake, rectal bleeding, rectal pain, vomiting, others Genitourinary: denies: burning, dysuria, flank pain, frequency, hematuria, incontinence, penile discharge, penile sore, pain, testicle pain, testicle swelling, urgency, others Neurological: denies: dizziness, fainting, headache, left sided numbness, left sided weakness, numbness, paresthesia, pre-existing deficit, right sided numbness, right sided weakness, seizure, speech problems, tingling, tremors, weakness, others Musculoskeletal: denies: back pain, gout, joint pain, joint swelling, muscle pain, muscle stiffness, neck pain, others Integumetry: denies: bruises, change in color, change in hair/nails, dryness, laceration, lesions, lumps, rash, wounds, others Allergic/Immunocompromised: denies: Difficulty Healing, Frequent Infections, Hives, Itching, others Hematologic/Lymphatic: denies: anemia, blood clots, easy bleeding, easy bruising, swollen glands, others Endocrine: denies: excessive hunger, excessive sweating, excessive thirst, excessive urination, flushing, intolerance to cold, intolerance to heat, unexplained weight gain, unexplained weight loss, others Psychiatric: denies: anxiety, bipolar disorder, depression, hopeless, panic disorder, schizophrenia, sleepless, suicidal, others Unable to Obtain due to: Dementia All Other Systems: Reviewed and Negative Physical Exam General Appearance: No Apparent Distress HEENT: Other (Pupils and face symmetric. Dry mucous membranes.) Neck: Full Range of Motion, Normal Inspection Respiratory: Lungs Clear, No Accessory Muscle Use, No Respiratory Distress, Normal Breath Sounds Cardiovascular: No Edema, No JVD, Regular Rate/Rhythm Breast Exam: Deferred Gastrointestinal: Diffuse, Soft, Tenderness Genitalia: Deferred Pelvic: Deferred Rectal: Deferred Extremities: Normal inspection, Normal range of motion, Non-tender, No pedal edema Neurologic: Alert (Oriented x2 Crohn's (baseline per EMS)), Normal Affect, Normal Mood, Other (Moves all extremities. No gross focal deficit.) Cerebellar Function: NOT DONE Reflexes: NOT DONE Skin: Dry, Normal Color, Warm Lymphatic: NOT DONE EKG EKG : Comments Sinus tach, rate 109, normal NE and QRS intervals, QTC prolonged at 489, normal axis, possible old anteroseptal infarct, inferior and lateral ST-depression Was a procedure done? Was a procedure done?: No GI differential Dx Differential Diagnosis: Constipation, Diverticular disease, Gastritis/PUD, Gastroenteritis, GI hemorrhage, Inflammatory BD, Ischemic Bowel, Pancreatitis, UTI, Dehydration, Electrolyte Imbalance, Food Poisoning, Bacterial, Viral, Stress Ulcer, Other (Colitis) X-Ray, Labs, Meds, VS Vital Signs Date Time Temp Pulse Resp B/P (MAP) Pulse Ox O2 Delivery O2 Flow Rate FiO2 06/27/25 17:38 100 20 94 Room Air* 0 21 06/27/25 17:38 98.0 100 20 95/63 (74) 94 98.0 06/27/25 17:24 96 06/27/25 12:27 109 06/27/25 12:26 98.1 110 16 113/69 96 98.1 Lab Test 06/27/25 15:57 06/27/25 14:07 06/27/25 13:01 Range/Units Troponin I High Sensitivity 129 *H 133 *H 150 *H </=54 ng/L White Blood Count 10.7 4.4-10.8 10^3/uL Red Blood Count 3.89 L 4.5-5.90 10^6/uL Hemoglobin 11.0 L 13.5-17.5 g/dL Hematocrit 33.3 L 41.0-53.0 % Mean Corpuscular Volume 85.6 80.0-100.0 fL Mean Corpuscular Hemoglobin 28.4 28.0-32.0 pg Mean Corpuscular Hemoglobin Concent 33.1 32.0-36.0 g/dL Red Cell Distribution Width 14.7 H 11.8-14.3 % Platelet Count 251 140-450 10^3/uL Mean Platelet Volume 8.1 6.9-10.8 fL Neutrophils (%) (Auto) 73.2 37.0-80.0 % Lymphocytes (%) (Auto) 15.4 10.0-50.0 % Monocytes (%) (Auto) 8.7 0.0-12.0 % Eosinophils (%) (Auto) 2.1 0.0-7.0 % Basophils (%) (Auto) 0.6 0.0-2.0 % Neutrophils # (Auto) 7.8 1.6-8.6 10 ^3/uL Lymphocytes # (Auto) 1.7 0.4-5.4 10 ^3/uL Monocytes # (Auto) 0.9 0-1.3 10 ^3/uL Eosinophils # (Auto) 0.2 0-0.8 10 ^3/uL Basophils # (Auto) 0.1 0-0.2 10 ^3/uL Nucleated Red Blood Cells 0.1 % Sodium Level 140 136-145 mmol/L Potassium Level 3.4 L 3.5-5.1 mmol/L Chloride Level 106 98-107 mmol/L Carbon Dioxide Level 19 L 20-31 mmol/L Anion Gap 15 5-15 Blood Urea Nitrogen 30 H 9-23 mg/dL Creatinine 2.33 H 0.700-1.30 mg/dL Glomerular Filtration Rate Calc 28 >90 mL/min BUN/Creatinine Ratio 12.9 10.0-20.0 Serum Glucose 114 H 74-106 mg/dL Calcium Level 9.6 8.7-10.4 mg/dL Total Bilirubin 0.8 0.2-1.0 mg/dL Aspartate Amino Transferase (AST) 24 13-40 U/L Alanine Aminotransferase (ALT) 14 7-40 U/L Alkaline Phosphatase 83 46-116 U/L B-Type Natriuretic Peptide 106.70 0-100 pg/mL Total Protein 8.0 5.7-8.2 g/dL Albumin 4.9 H 3.2-4.8 g/dL Lipase 37 12-53 U/L Current Medications Medications (Trade) Dose Ordered Sig/Tricia Route Start Time Stop Time Status Last Admin Pantoprazole Sodium (Protonix) 40 mg ONCE ONCE IV 06/27/25 12:45 06/27/25 12:46 DC 06/27/25 18:15 Sodium Chloride 1,000 ml @ 1,000 mls/hr Q1H ONCE IV 06/27/25 12:45 06/27/25 13:44 DC 06/27/25 18:14 [place] [id number] Ph: [phone] DIAGNOSTIC IMAGING Diagnostic Imaging Report : [id number] Signed PATIENT: TAMIA SILVESTRE ACCT: [id number] UNIT: [id number] : 1950 LOC: ER ROOM / BED: / AGE / SEX: 75 / M ADM STATUS: REG ER SERVICE 1239 ORDERING PHYSICIAN: DELIO KENNEDY MD PROCEDURE(s): ABPL - CT AB PEL WO CON-NO ORAL OR IV REASON: diffuse abd pain, black stool ORDER NUMBER(s): [id number], ACCESSION NUMBER(s): [id number] CT abdomen and pelvis done without IV contrast Comparison: 05/20/2024 INDICATION: diffuse abd pain, black stool TECHNIQUE: Serial axial images were performed through the abdomen and pelvis and then reformatted in the sagittal and coronal plane. All CT scans at this medical facility are performed using dose modulation techniques as appropriate to a performed exam including the following: Automated exposure control was utilized; adjustment of the MA and/or KvP according to patient size; and use of iterative reconstruction technique. FINDINGS: Heart size is enlarged with small pericardial effusion.. Small effusion in the left lung base. Liver and spleen are normal in size without focal mass. No renal masses, stones or hydronephrosis. No masses or enlargement of the adrenal glands or pancreas. No biliary dilatation. Small gallstones. No gallbladder wall thickening. No distention of bowel loops to suggest mechanical obstruction of bowel. The appendix is normal in appearance. No free fluid. Within the pelvis, bladder shows mild diffuse wall thickening. Prostate gland is slightly. No abnormal masses or fluid collections. IMPRESSION: 1. Cholelithiasis without signs of cholecystitis 2. Slight thickening mares of the urinary bladder possibly due to enlarged prostate 3. Left pleural effusion 4. Bowel evaluation severely limited by lack of IV contrast Computed Tomographic Radiation Dosimetry Report: Total CTDI vol = 11 mGy Total DLP = 652 mGy-cm Low dose protocols were performed. ATED BY: JESSICA LOW MD DICTATED DATE/TIME: 06/27/251356 SIGNED BY: JESSICA LOW MD SIGNED DATE/TIME: 06/27/251356 CC: X-Ray, Labs, Meds, VS Comment 75-year-old male with a history of dementia, COPD, CKD, diabetes, hypertension, GERD, hiatal hernia and post colonoscopy hemorrhage in April of 2025 brought in by EMS from home complaining of abdominal pain and black stool, associated with total body pain and shortness of breath Vitals remarkable for heart rate 110 Exam remarkable for diffuse abdominal tenderness Rhythm strip independently interpreted by me: Sinus tach, rate 109, no ectopy. CT abdomen and pelvis IMPRESSION: 1. Cholelithiasis without signs of cholecystitis 2. Slight thickening mares of the urinary bladder possibly due to enlarged prostate 3. Left pleural effusion 4. Bowel evaluation severely limited by lack of IV contrast CBC remarkable for hemoglobin 11, hematocrit 33, metabolic panel remarkable for potassium 3.4, CO2 19, BUN 30, creatinine 2.33, troponin elevated at 150, lipase normal Patient treated with the following in the ED: 1 L 0.9 normal saline IV bolus, morphine 2 mg IV, Zofran 4 mg IV, Protonix 40 mg IV On re-evaluation, patient states pain has improved. Vitals were stable. Plan is to admit the patient for GI and Cardiology evaluation. Time of 1ST Reevaluation: 14:35 Reevaluation 1ST: Improved Patient Education/Counseling: Diagnosis, Treatment Family Education/Counseling: No Family Present SEPSIS Sepsis Screen Date sepsis recognized/suspect: Jun 27, 2025 Time Sepsis recognized/suspect: 1226 Recent Procedure: No On Antibiotic Therapy: No Respiratory Rate >20: No Heart Rate >90: Yes Temp<36 C (96.8 F) or >38.3 C: No SBP <90 or MAP <65 mmHG: No New Acute Mental Status Change: No Is the patient on CPAP, BIPAP,: No SEPSIS EXCLUSION NOTE: Sepsis Exclusion Note: Patient presents with SIRS criteria, but the SIRS response is attributed to [pain ], not a suspected infection. Sepsis bundle is not initiated at this time, due to this reason. Further management will focus on the treatment of the above condition (s). Physician Orders Troponin-I Hs (06/28/25 00:00) Urinalysis (06/27/25 12:39) Ct Ab Pel Wo Con-No Oral Or Iv (06/27/25 12:39) Electrocardigram (06/27/25 12:39) Stool Occult Blood (06/27/25 14:26) Vital Signs Date Time Temp Pulse Resp B/P (MAP) Pulse Ox O2 Delivery O2 Flow Rate FiO2 06/27/25 17:38 100 20 94 Room Air* 0 21 06/27/25 17:38 98.0 100 20 95/63 (74) 94 98.0 06/27/25 17:24 96 06/27/25 12:27 109 06/27/25 12:26 98.1 110 16 113/69 96 98.1 Laboratory Tests Test 06/27/25 13:01 White Blood Count 10.7 10^3/uL (4.4-10.8) Medications Medications Dose Ordered Sig/Tricia Route Start Time Stop Time Status Last Admin Dose Admin Pantoprazole Sodium 40 mg ONCE ONCE IV 06/27/25 12:45 06/27/25 12:46 DC 06/27/25 18:15 Sodium Chloride 1,000 ml @ 1,000 mls/hr Q1H ONCE IV 06/27/25 12:45 06/27/25 13:44 DC 06/27/25 18:14 Departure 1 Departure Time of Disposition: 14:36 Impression: Primary Impression: GI bleed Additional Impressions: Abdominal pain Elevated troponin Disposition: ADMITTED INPATIENT Admit to: Tele Condition: Guarded Critical Care Note Critical Care Time?: No Stability Stability form required: No Heart Score Heart Score: Heart Score Response (Comments) Value History N/A 0 EKG N/A 0 Age N/A 0 Risk Factors N/A 0 Troponin N/A 0 Total 0 I personally scribed for DELIO KENNEDY MD ([facility] on 06/27/25 at 13:08. Electronically submitted by Joey Thompson ([employer]). I personally scribed for DELIO KENNEDY MD ([facility]) on 06/27/25 at 14:04. Electronically submitted by Joey Thompson ([facility] DELIO KENNEDY MD Jun 27, 2025 13:08
[2025-06-27 13:23] LABS: Hematocrit 33.3 % (41.0-53.0); Hemoglobin 11.0 g/dL (13.5-17.5); Mean Corpuscular Hemoglobin 28.4 pg (28.0-32.0); Mean Corpuscular Volume 85.6 fL (80.0-100.0); Nucleated Red Blood Cells % 0.1 %
[2025-06-27 13:58] LABS: Alanine Aminotransferase 14 U/L (7-40); Albumin 4.9 g/dL (3.2-4.8); Alkaline Phosphatase 83 U/L (46-116); Anion Gap 15 (5-15); BUN/Creatinine Ratio 12.9 (10.0-20.0); Bilirubin, Total 0.8 mg/dL (0.2-1.0); Blood Urea Nitrogen 30 mg/dL (9-23); Calcium 9.6 mg/dL (8.7-10.4); Carbon Dioxide 19 mmol/L (20-31); Chloride 106 mmol/L (98-107); Glucose 114 mg/dL (74-106); Potassium 3.4 mmol/L (3.5-5.1); Sodium 140 mmol/L (136-145); Total Protein 8.0 g/dL (5.7-8.2)
--- NOTE | 2025-06-27 13:59 | DVH ---
CT abdomen and pelvis done without IV contrast Comparison: 05/20/2024 INDICATION: diffuse abd pain, black stool TECHNIQUE: Serial axial images were performed through the abdomen and pelvis and then reformatted in the sagittal and coronal plane. All CT scans at this medical facility are performed using dose modula tion techniques as appropriate to a performed exam including the following: Automated exposure contro l was utilized; adjustment of the MA and/or KvP according to patient size; and use of iterative recon struction technique. FINDINGS: Heart size is enlarged with small pericardial effusion.. Small effusion in the left lung b ase. Liver and spleen are normal in size without focal mass. No renal masses, stones or hydronephrosis. No masses or enlargement of the adrenal glands or pancreas. No biliary dilatation. Small gallstones. No gallbladder wall thickening. No distention of bowel loops to suggest mechanical obstruction of bowel . The appendix is normal in appearance. No free fluid. Within the pelvis, bladder shows mild diffuse wall thickening. Prostate gland is slightly. No abnormal masses or fluid collections. IMPRESSION: 1. Cholelithiasis without signs of cholecystitis 2. Slight thickening mares of the urinary bladder possibly due to enlarged prostate 3. Left pleural effusion 4. Bowel evaluation severely limited by lack of IV contrast Computed Tomographic Radiation Dosimetry Report: Total CTDI vol = 11 mGy Total DLP = 652 mGy-cm Low d ose protocols were performed.
[2025-06-27 14:11] LABS: Lipase 37 U/L (12-53)
[2025-06-27 17:38] VITALS: PULSE 100; RESP 20; O2SAT 94
[2025-06-27] MEDS: SODIUM CHLORIDE 0.9% 1,000 ML IV ONE (18:14)
[2025-06-27] MEDS: PANTOPRAZOLE 40 MG/10 ML VIAL INJ IV ONE (18:15)
[2025-06-27 19:30] VITALS: PULSE 96; RESP 18; O2SAT 96
[2025-06-27] MEDS ORDERED: ONDANSETRON HCL 4 MG/2 ML VIAL IV PRN (21:15)
[2025-06-27] MEDS ORDERED: NITROGLYCERIN 0.4 MG SL TAB SL PRN (21:15)
[2025-06-27] MEDS: SODIUM CHLORIDE 0.9% 1,000 ML IV SCH (22:31)
[2025-06-27] MEDS: PANTOPRAZOLE 40 MG/10 ML VIAL INJ IV SCH (22:31)
[2025-06-28 00:30] LABS: Hematocrit 30.0 % (41.0-53.0); Hemoglobin 10.0 g/dL (13.5-17.5)
--- NOTE | 2025-06-28 01:14 | DVHHP2 ---
Admitting Diagnosis: GI Bleed, Elevated troponin History of Present Illness History Source: Patient, Spouse/Significant Other Exam Limitations: Other (Alzheimers disease, Dementia) HPI Mr. Juany Amaral is a 75yo male with a history of dementia, COPD, CKD, diabetes, hypertension, GERD, hiatal hernia and post colonoscopy early hemorrhage April 2025 presents with a chief complaint of abdominal pain and black stool. Pt with history of dementia, ax0x2 baseline, and lives with spouse and spouse called EMS stating patient been having abdominal pain for the past 1x month. Patient reports having dark tarry stools for past month with associated abdominal pain as reported per with a poor appetite. Patient reports they were seen at on Tuesday and were told patient has a blood clot in his lungs. Denies being on anticoagulants. However list provided by patient Indunabeel on current medication list. Patient reports associated shortness of breath, currently 95-97% on room air. Patient admitted for further evaluation and treatment. Home Meds Active Scripts Pantoprazole Sodium Sesquihydr (Pantoprazole Sodium Dr) 40 Mg Tab, 40 MG PO DAILY, #60 TAB Prov:AYLA RAMIREZ MD 03/22/25 Quetiapine Fumerate (Seroquel) 50 Mg Tab, 0.5 TAB PO BID, #30 TAB 2 Refills GIVE 1/2 tablet (25mg) twice a day with breakfast and dinner Prov:AYLA RAMIREZ MD 03/22/25 Losartan Potassium (Losartan Potassium) 50 Mg Tab, 50 MG PO DAILY, #60 TAB Prov:AYLA RAMIREZ MD 03/22/25 Donepezil Hydrochloride (Aricept) 5 Mg Tab, 5 MG PO QPM for 30 Days, #30 TAB Prov:AYLA RAMIREZ MD 03/22/25 Ibuprofen Micronized (Ibuprofen) 400 Mg Tab, 400 MG PO BIDP PRN for 15 Days, #30 TAB Prov:AYLA RAMIREZ MD 03/22/25 Amlodipine Besylate (Amlodipine Besylate) 10 Mg Tab, 1 TAB PO DAILY, #60 TAB Prov:AYAL RAMIREZ MD 03/22/25 Past Medical History Cardiac: HTN Pulmonary: COPD Central Nervous System: Dementia, Other (Alzeihmer's disease, behavioral disorder) GI: GERD, Other (Hiatal Hernia) Renal/: CKD Patient Family History: Diabetes mellitus G8 MOTHER FH: kidney failure G8 MOTHER Smoker: No Hx (Negative) Alocohol: None Drugs: None Lives with: With family Domestic Violence: Neg Review of Systems Constitutional: No symptom reported Ears, Nose, & Throat: No symptom reported Eyes: No symptom reported Pulmonary/Respiratory: No symptom reported Cardiovascular: No symptom reported Gastrointestinal: Abdominal Pain, Melena Genitourinary: No symptom reported Musculoskeletal: No symptom reported Skin: No symptom reported Psychiatric: No symptom reported Endocrine: No symptom reported Hemotologic/Lymphatic: No symptom reported H&P Exam Vital Signs Vital Signs Date Time Temp Pulse Resp B/P (MAP) Pulse Ox O2 Delivery O2 Flow Rate FiO2 06/28/25 00:00 97 06/27/25 23:14 16 125/75 (92) 97 06/27/25 19:30 Room Air* 0 21 06/27/25 19:30 97.8 97.8 General Appeara: Well developed, Well nourished, Normal Appearance Head Exam: Normal inspection Neck Exam: Normal inspection, Non-tender, Normal alignment Eye Exam: bilateral eye Normal inspection, bilateral eye PERRL, bilateral eye EOMI Ear Exam: bilateral ear Auricle normal, bilateral ear Canal normal Nasal Exam: Normal inspection Mouth: Normal Inspection Pulmonary/Respiratory: Normal inspection, Normal breath sounds, Chest non- tender, Lungs clear Cardiovascular/Chest: Normal inspection, Regular rate, Normal Rhythm Peripheral Pulses: 2+ dorsalis pedis (R), 2+ dorsalis pedis (L), 2+ Radial (R), 2+ Radial (L) Abdominal Exam: Normal bowel sounds, Soft, No tenderness Back Exam: Normal inspection 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 Exam: Normal hearing, Normal speech, PERRL Motor/Sensory: Normal sensory function, Normal motor function Neuro/Mental St: Alert, Oriented (x2) Appearance: Appropriate appearance, Memory impairment Eye contact/ Speech: Cooperative, Good eye contact, Normal speech Thoughts/Psych: Normal thought pattern Skin Exam: Normal inspection, Warm/dry, Pallor SEPSIS Sepsis Screen Date sepsis recognized/suspect: Jun 27, 2025 Time Sepsis recognized/suspect: 1714 Recent Procedure: No On Antibiotic Therapy: No Respiratory Rate >20: No Heart Rate >90: Yes Temp<36 C (96.8 F) or >38.3 C: No SBP <90 or MAP <65 mmHG: No New Acute Mental Status Change: No Is the patient on CPAP, BIPAP,: No Physician Orders Admit (06/27/25 21:08) * Gi Dvh Compounding Scaler (06/27/25 21:08) Echo 2d Mode Cardiac Dop (06/27/25 21:08) Troponin-I Hs (06/28/25 06:00) Troponin-I Hs (06/28/25 14:00) Npo Except Ice Chips (06/27/25 21:08) Basic Metabolic Panel (06/28/25 05:00) Basic Metabolic Panel (06/29/25 05:00) Basic Metabolic Panel (06/30/25 05:00) Complete Blood Count (06/28/25 05:00) Complete Blood Count (06/29/25 05:00) Complete Blood Count (06/30/25 05:00) Nitroglycerin Sublingual (Ntrostat Subli (06/27/25 21:15) Morphine Sulfate Injection (06/27/25:15) Stat Ekg For Chest Pain (06/27/25 21:08) Notify Md Of Changes From Base (06/27/25 21:08) Solar Power Installer For 24 Hours (06/27/25 21:08) Emergency Dysrhythmia Protocol (06/27/25:08) Rhythm Strips Once Every Shift (06/27/25 21:08) Oxygen By Nasal Cannula (06/27/25 21:08) Npo (Nothing By Mouth) Diet (06/27/25 Breakfast) * Cardiology Consult (06/27/25 21:08) Hemoglobin & Hematocrit (06/28/25 12:00) Hemoglobin & Hematocrit (06/28/25 18:00) Sodium Chloride 0.9% (06/27/25 21:15) Pantoprazole (Protonix) (06/27/25 22:00) Ondansetron Hcl (Zofran) (06/27/25 21:15) Donepezil Tablet (Aricept Tablet) (06/28/25 18:00) Sequential Compression Device (06/27/25 22:02) Quetiapine Fumarate Tablet (Seroquel Tab (06/28/25 10:00) D-Dimer (06/28/25 00:36) Vital Signs Date Time Temp Pulse Resp B/P (MAP) Pulse Ox O2 Delivery O2 Flow Rate FiO2 06/28/25 00:00 97 06/27/25 23:14 99 16 125/75 (92) 97 06/27/25 20:00 93 06/27/25 19:30 96 18 96 Room Air* 0 21 06/27/25 19:30 97.8 96 18 115/69 (84) 96 97.8 06/27/25 17:38 100 20 94 Room Air* 0 21 06/27/25 17:38 98.0 100 20 95/63 (74) 94 98.0 06/27/25 17:24 96 Medications Medications Dose Ordered Sig/Tricia Route Start Time Stop Time Status Last Admin Dose Admin Pantoprazole Sodium 40 mg BID IV 06/27/25 22:00 06/27/25 22:31 40 MG Sodium Chloride 1,000 ml @ 75 mls/hr [id number] IV 06/27/25 21:15 06/27/25 22:31 75 MLS/HR Labs/Xrays Labs Test 06/28/25 00:18 06/27/25 22:02 06/27/25 13:01 Range/Units Hemoglobin 10.0 L 13.5-17.5 g/dL Hematocrit 30.0 L 41.0-53.0 % Troponin I High Sensitivity 99 *H </=54 ng/L White Blood Count 10.7 4.4-10.8 10^3/uL Red Blood Count 3.89 L 4.5-5.90 10^6/uL Mean Corpuscular Volume 85.6 80.0-100.0 fL Mean Corpuscular Hemoglobin 28.4 28.0-32.0 pg Mean Corpuscular Hemoglobin Concent 33.1 32.0-36.0 g/dL Red Cell Distribution Width 14.7 H 11.8-14.3 % Platelet Count 251 140-450 10^3/uL Mean Platelet Volume 8.1 6.9-10.8 fL Neutrophils (%) (Auto) 73.2 37.0-80.0 % Lymphocytes (%) (Auto) 15.4 10.0-50.0 % Monocytes (%) (Auto) 8.7 0.0-12.0 % Eosinophils (%) (Auto) 2.1 0.0-7.0 % Basophils (%) (Auto) 0.6 0.0-2.0 % Neutrophils # (Auto) 7.8 1.6-8.6 10 ^3/uL Lymphocytes # (Auto) 1.7 0.4-5.4 10 ^3/uL Monocytes # (Auto) 0.9 0-1.3 10 ^3/uL Eosinophils # (Auto) 0.2 0-0.8 10 ^3/uL Basophils # (Auto) 0.1 0-0.2 10 ^3/uL Nucleated Red Blood Cells 0.1 % Sodium Level 140 136-145 mmol/L Potassium Level 3.4 L 3.5-5.1 mmol/L Chloride Level 106 98-107 mmol/L Carbon Dioxide Level 19 L 20-31 mmol/L Anion Gap 15 5-15 Blood Urea Nitrogen 30 H 9-23 mg/dL Creatinine 2.33 H 0.700-1.30 mg/dL Glomerular Filtration Rate Calc 28 >90 mL/min BUN/Creatinine Ratio 12.9 10.0-20.0 Serum Glucose 114 H 74-106 mg/dL Calcium Level 9.6 8.7-10.4 mg/dL Total Bilirubin 0.8 0.2-1.0 mg/dL Aspartate Amino Transferase (AST) 24 13-40 U/L Alanine Aminotransferase (ALT) 14 7-40 U/L Alkaline Phosphatase 83 46-116 U/L B-Type Natriuretic Peptide 106.70 0-100 pg/mL Total Protein 8.0 5.7-8.2 g/dL Albumin 4.9 H 3.2-4.8 g/dL Lipase 37 12-53 U/L Assessment/Plan Problem List: (1) GI bleed (2) Elevated troponin (3) Abdominal pain (4) Dementia Plan This is a 75 yo male with known history of Dementia, Alzheimer's disease, COPD, CKD, DM, HTN, GERD, Hiatal hernia who presents to the hospital with black tarry stools, abdominal pain. 1. GI Bleed 2. Abdominal Pain 3. Elevated troponin levels 4. Dementia, Alzheimer's disease 5. CKD 6. DM type 2 7. Hypertension Plan Admit Telemetry Gastroenterology consultation, serial H&H levels, Stool occult blood, Protonix IV Cardiology consultation , 2D echocardiogram, serial troponin levels, hold aspirin d/t gi bleed IV fluids NPO Monitor BMP, CBC D dimer , follow with VQ scan if elevated Discussed all above with patient and patient at bedside. Both verbalized agreement and understanding of care plan. All questions were answered. Plan discussed with: Patient, Spouse, Other Code Visit Code Visit Total Time (mins): 45 Additional Comments Additional Comments Additional Comments Patient's chart is reviewed and discussed with the nurse practitioner. Patient is seen evaluated and admitted by nurse practitioner earlier today. Patient is evaluated by me this afternoon. His is at bedside. Ultrasound of the leg showed DVT however admitted with a GI bleed and hemoglobin did drop. Pending GI cardiac, evaluations. I agree with the nurse practitioner's evaluation, documentation, assessment and care plan as outlined. Discussed with the nurse and regarding care plan at bedside. AMNA MORALES Jun 28, 2025 01:14 AYLA RAMIREZ MD Jun 28, 2025 22:15
[2025-06-28 07:30] VITALS: PULSE 128; RESP 20; O2SAT 98
[2025-06-28] MEDS: LORazepam 2MG/ML-1ML VIAL IM ONE (09:15)
[2025-06-28] MEDS: HALOPERIDOL LACTATE 5 MG/ML INJ VIAL IM ONE (09:15)
[2025-06-28 11:12] LABS: Urine Protein, UAD 1+ (Negative)
[2025-06-28] MEDS: MORPHINE SULFATE INJ 2 MG/ml SYRG IV PRN (11:16)
--- NOTE | 2025-06-28 11:35 | DVH ---
Technique: Real-time ultrasound imaging, with color Doppler and compression of the bilateral common femoral vein, femoral vein, greater saphenous vein, and popliteal vein. Indication: elevated d dimer Comparison: None Findings: The right superficial femoral vein mid to distal segment and right popliteal vein contains occlusive thrombus and demonstrate noncompressibility. Right inguinal lymph nodes with fatty hilum measuring up to 3 x 0.9 cm. The left common femoral, superficial femoral, popliteal, posterior tibial veins demonstrate color kiley w and compressibility. Impression: Occlusive deep vein thrombosis within the right superficial femoral vein extending into the right pop liteal vein
[2025-06-28 11:53] LABS: Hematocrit 29.7 % (41.0-53.0); Hemoglobin 9.8 g/dL (13.5-17.5)
--- NOTE | 2025-06-28 12:40 | DVHINCON2 ---
GI Consult Consult Note GI consult note Date of Consultation: 06/28/2025 Chief Complaint: GI bleed Referring Physician: Braden GASCA H&P: 75-year-old male with past medical history of dementia, COPD, CKD, diabetes, HTN, GERD, hiatal hernia presented to ER with complains of abdominal pain and black stool. Patient complains of abdominal discomfort for the past 2-4 weeks. Also having black stool for the past two weeks. Admits to using Pepto-Bismol. No nausea or vomiting. Patient is status post EGD and colonoscopy 05/17/2025. Patient unsure which facility he had a done and unsure about results. Per chart patient is on Eliquis. Patient also having elevated troponins and Cardiology has been consulted Past Medical History: HTN, COPD, dementia, GERD, hiatal hernia, CKD Past Surgical History: Social History: NO smoking, drinking ETOH and use of illegal drugs. Family History: Noncontributory Review of Systems: As above Physical exam: General: NAD, AAO Chest: lung dia clear to auscultation Heart: RRR, no murmur Abdomen: non-distended, no tenderness to palpation, +BS Labs: Labs Test 06/28/25 11:17 06/28/25 10:35 06/27/25 22:02 06/27/25 13:01 Range/Units Hemoglobin 9.8 L 13.5-17.5 g/dL Hematocrit 29.7 L 41.0-53.0 % Troponin I High Sensitivity 82 *H </=54 ng/L Urine Color Yellow Yellow Urine Clarity Clear Clear Urine pH 5.5 5.0-9.0 Urine Specific Mora 1.018 1.001-1.035 Urine Protein 1+ H Negative Urine Ketones Negative Negative Urine Blood 1+ H Negative /uL Urine Nitrite Negative Negative Urine Bilirubin Negative Negative Urine Urobilinogen Normal Negative mg/dL Urine Leukocyte Esterase Negative Negative /uL Urine RBC 3 0 - 3 /hpf Urine Microscopic WBC 4 H 0-3 /HPF Urine Squamous Epithelial Cells None seen <5 /hpf Urine Bacteria None seen None Seen /hpf Urine Glucose Normal Normal mg/dL D-Dimer, Quantitative 17.69 H 0.0-0.49 mg/L FEU White Blood Count 10.7 4.4-10.8 10^3/uL Red Blood Count 3.89 L 4.5-5.90 10^6/uL Mean Corpuscular Volume 85.6 80.0-100.0 fL Mean Corpuscular Hemoglobin 28.4 28.0-32.0 pg Mean Corpuscular Hemoglobin Concent 33.1 32.0-36.0 g/dL Red Cell Distribution Width 14.7 H 11.8-14.3 % Platelet Count 251 140-450 10^3/uL Mean Platelet Volume 8.1 6.9-10.8 fL Neutrophils (%) (Auto) 73.2 37.0-80.0 % Lymphocytes (%) (Auto) 15.4 10.0-50.0 % Monocytes (%) (Auto) 8.7 0.0-12.0 % Eosinophils (%) (Auto) 2.1 0.0-7.0 % Basophils (%) (Auto) 0.6 0.0-2.0 % Neutrophils # (Auto) 7.8 1.6-8.6 10 ^3/uL Lymphocytes # (Auto) 1.7 0.4-5.4 10 ^3/uL Monocytes # (Auto) 0.9 0-1.3 10 ^3/uL Eosinophils # (Auto) 0.2 0-0.8 10 ^3/uL Basophils # (Auto) 0.1 0-0.2 10 ^3/uL Nucleated Red Blood Cells 0.1 % Sodium Level 140 136-145 mmol/L Potassium Level 3.4 L 3.5-5.1 mmol/L Chloride Level 106 98-107 mmol/L Carbon Dioxide Level 19 L 20-31 mmol/L Anion Gap 15 5-15 Blood Urea Nitrogen 30 H 9-23 mg/dL Creatinine 2.33 H 0.700-1.30 mg/dL Glomerular Filtration Rate Calc 28 >90 mL/min BUN/Creatinine Ratio 12.9 10.0-20.0 Serum Glucose 114 H 74-106 mg/dL Calcium Level 9.6 8.7-10.4 mg/dL Total Bilirubin 0.8 0.2-1.0 mg/dL Aspartate Amino Transferase (AST) 24 13-40 U/L Alanine Aminotransferase (ALT) 14 7-40 U/L Alkaline Phosphatase 83 46-116 U/L B-Type Natriuretic Peptide 106.70 0-100 pg/mL Total Protein 8.0 5.7-8.2 g/dL Albumin 4.9 H 3.2-4.8 g/dL Lipase 37 12-53 U/L Imaging: CT abdomen pelvis IMPRESSION: 1. Cholelithiasis without signs of cholecystitis 2. Slight thickening mares of the urinary bladder possibly due to enlarged prostate 3. Left pleural effusion 4. Bowel evaluation severely limited by lack of IV contrast Assessment: Abdominal pain Possible GI bleed Cholelithiasis History of GERD Hiatal hernia Plan: Discussed with Dr. Abad Stool for occult blood Monitor lab Protonix Obtain records of EGD and colonoscopy with pathology Cardiology consult pending We will continue to monitor patient Thank you for this consult Date of Service: Jun 28, 2025 Billing Provider: TONI BROWN Common Visit Codes: CONSULT ONLY Consultation Codes: 96190-[id number] CONSULT <60MIN TONI BROWN Jun 28, 2025 12:40
--- NOTE | 2025-06-28 13:23 | DVHSR ---
APPROVED REPORT EXAM: Two-dimensional and M-mode echocardiogram with Doppler and color Doppler. Blood Pressure: 133/92 mmHg INDICATION Elevated Trop RISK FACTORS Height: 5'10", Weight: 140 DIMENSIONS LVDd3.5 (3.8-5.7cm)LA (2D)3.8 (1.9-4.0cm)Aortic Root3.5 (2.0-3.7cm) LVDs2.5 (2.5-4.0cm)LA (MM) (1.9-4.0cm)Aortic Cusp Exc1.9 (1.5-2.0cm) EF (%) 54.0 (55-70%)Rt. Atrium5.4 (1.9-4.0cm)Asc. Aorta3.3 cm IVSd1.8 (0.7-1.1cm)RV (D) (1.8-2.4cm) PWd1.7 (0.7-1.1cm) Mitral Valve MitralMitral Stenosis E wave0.54m/sMV Mean GR.mmHg A wave0.98m/sMV Peak GR.mmHg E/A ratio0.62D MVAcm2 DECEL [id number] 1/2 Timems Aortic Valve Aortic ValveAortic Stenosis V10.92m/Jessica Mean GR.5mmHg V21.39m/Jessica Peak GR.8mmHg LVOT Diameter2.4 (1.8-2.4cm)Doppler AVA2.99cm2 Pulmonic Valve V20.80m/s Tricuspid Valve TR Velocity3.75m/s [id number] Other Information Quality : Technically LimitedRhythm : Technically limited study due to patient position. Conclusion There is moderate to severe concentric left ventricular hypertrophy Left ventricular systolic function is preserved The ejection fraction is estimated at 60% Right heart is dilated There is moderate tricuspid regurgitation There is moderate pulmonary hypertension estimated at 57 mmHg There is trivial pericardial effusion
--- NOTE | 2025-06-28 13:26 | DVH ---
NUCLEAR MEDICINE VENTILATION/PERFUSION LUNG SCAN. INDICATION: PULMONARY EMBOLISM COMPARISON: XY CHEST XRAY 1 VIEW on DOS: 03/19/25, XY CHEST XRAY 1 VIEW on DOS: 08/08/24, XY CHEST PORT ABLE on DOS: 05/20/24, NM CARDIOLITE MULTIPLE on DOS: 11/16/23, XY CHEST TWO VIEWS ROUTINE on DOS: TECHNIQUE: Following intravenous demonstration of 5.4 millicuries of technetium 99m MAA, and inhala tion of 6.1 mCi of Xe 133 scintigrams were obtained in multiple projections of the lungs. FINDINGS: There is normal uptake of radionuclide on both the ventilation and perfusion portions of the examinat ion. No mismatched perfusion defects are demonstrated. Uptake is normally homogeneous. IMPRESSION: Low probability for PE.
--- NOTE | 2025-06-28 15:01 | ECG ---
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
[2025-06-28] MEDS: DONEPEZIL HYDROCHLORIDE 5 MG TAB PO SCH (18:37)
[2025-06-28 18:51] LABS: Hematocrit 28.0 % (41.0-53.0); Hemoglobin 9.4 g/dL (13.5-17.5)
--- NOTE | 2025-06-28 18:54 | DVHINCON2 ---
DATE OF CONSULTATION: 06/28/2025 CONSULTING PHYSICIAN: Elena Davis MD INDICATION: Elevated troponins. HISTORY OF PRESENT ILLNESS: The patient is a 75-year-old male with a history of CKD, COPD, diabetes, hypertension, and dementia, who presented to the hospital with complaints of abdominal pain and GI bleed. His troponin is noted to be mild elevated, which has been trending down. The patient was recently diagnosed with pulmonary embolism and was on Eliquis. Denies any prior history of heart disease or surgery. PAST MEDICAL HISTORY: * CKD. * Hypertension. * COPD. * Dementia. MEDICATIONS: Per med rec. ALLERGIES: No known drug allergies. PHYSICAL EXAMINATION: GENERAL: Alert and awake, in no form of cardiopulmonary distress. VITAL SIGNS: Blood pressure 117/89, pulse 102 per minute, saturation 98%. HEENT/NECK: No carotid bruits. No jugular venous distention. CHEST: Bilateral air entry, clear. CARDIOVASCULAR: Submucosal and palpable. Normal S1, S2. EXTREMITIES: No peripheral edema. DIAGNOSTIC DATA: White count 10, hemoglobin 11, platelets 251. Sodium 140, potassium 3.4, creatinine 2.3. Troponin first set is 150, second set is 120, third set is 82. ASSESSMENT: * Abdominal pain. * Elevated troponin possibility of demand ischemia, doubt ACS. * CKD. * Dementia. * Diabetes. * Hypertension. * History of pulmonary embolism. RECOMMENDATIONS: * Monitor H and H. * Off anticoagulation for now. * We will review echo once completed. * Continue telemetry monitoring. * If echo unremarkable, no further cardiac workup indicated. Thank you for allowing me to participate in the care of this patient. MD ANGELES Martinez/ARTHUR TID: [id number] RECEIPT: [id number]
[2025-06-28 19:50] VITALS: PULSE 97; RESP 16; O2SAT 95
[2025-06-29 06:00] LABS: Hematocrit 28.8 % (41.0-53.0); Hemoglobin 9.5 g/dL (13.5-17.5); Mean Corpuscular Hemoglobin 28.7 pg (28.0-32.0); Mean Corpuscular Volume 87.0 fL (80.0-100.0); Nucleated Red Blood Cells % 0.1 %
[2025-06-29 06:08] LABS: Potassium 3.6 mmol/L (3.5-5.1)
[2025-06-29 06:09] LABS: Anion Gap 13 (5-15); Calcium 8.9 mg/dL (8.7-10.4); Carbon Dioxide 21 mmol/L (20-31)
[2025-06-29 06:11] LABS: Chloride 111 mmol/L (98-107); Sodium 145 mmol/L (136-145)
[2025-06-29 06:14] LABS: BUN/Creatinine Ratio 15.0 (10.0-20.0); Blood Urea Nitrogen 22 mg/dL (9-23); Glucose 92 mg/dL (74-106)
[2025-06-29 08:19] VITALS: PULSE 85; RESP 18; O2SAT 98
[2025-06-29] MEDS: LACTULOSE 20Gm/30ML SOLN PO SCH (11:01)
--- NOTE | 2025-06-29 12:22 | DVHPN2 ---
Progress Note - Dictate Date Seen: Jun 29, 2025 Medical Necessity Reason Pt with a Central, PICC or Fol: No Subjective Patient seen at bedside in ER 14 Patient is tolerating a diet but eating poorly CT scan had shown small cholelithiasis add bedside has multiple complaints about his poor appetite abdominal discomfort Patient was also not had a bowel movement for two or three days but his states it is because he has not eaten She did show me the endoscopy report from gastro group done on 05/17/2025 EGD had shown a 1 cm sliding-type hiatal hernia with mild gastritis Patient apparently also had a colonoscopy done at the same day but the report was not available Patient's stated he had some sort of blockage possibly diverticular disease and had been advised more fiber and Metamucil intake which she has been giving However the patient is concerned about his medical condition Echocardiogram was at 60% ejection fraction, 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 vital signs Vital Sign Date Time Temp Pulse Resp B/P (MAP) Pulse Ox O2 Delivery O2 Flow Rate FiO2 06/29/25 11:46 99 Room Air* 0 21 06/29/25 10:00 71 18 110/73 (85) 06/29/25 09:00 98.3 98.3 Total Intake and Output 06/28/25 06/28/25 06/29/25 15:00 23:00 07:00 Intake Total 75 ml Balance 75 ml medications Current Medications Medications Dose Ordered Sig/Tricia Route Start Time Stop Time Status Last Admin Dose Admin Nitroglycerin 0.4 mg Q5MINP PRN SL 06/27/25 21:15 Morphine Sulfate 2 mg Q30M PRN IV 06/27/25 21:15 06/28/25 11:20 2 MG Sodium Chloride 1,000 ml @ 75 mls/hr [id number] IV 06/27/25 21:15 06/28/25 23:56 75 MLS/HR Pantoprazole Sodium 40 mg BID IV 06/27/25 22:00 06/29/25 11:01 40 MG Ondansetron HCl 4 mg Q6HPRN PRN IV 06/27/25 21:15 Donepezil HCl 5 mg QPM PO 06/28/25 18:00 06/28/25 18:37 5 MG Quetiapine Fumarate 25 mg BID PO 06/28/25 10:00 06/29/25 11:01 25 MG Lactulose 30 ml BID PO 06/29/25 10:00 06/29/25 11:01 30 ML objective General: NAD, AAO Chest: lung dia clear to auscultation Heart: RRR, no murmur Abdomen: Mildly distended, no tenderness to palpation, +BS; obese laboratory and microbiology Laboratory Tests 06/29/25 05:31 Test 06/29/25 05:31 Range/Units Serum Glucose 92 74-106 mg/dL Doppler of the lower extremity Impression: Occlusive deep vein thrombosis within the right superficial femoral vein extending into the right popliteal vein Problems(with codes): (1) Dementia (2) Abdominal pain (3) GI bleed (4) DVT (deep venous thrombosis) (5) Cholelithiasis Prognosis Plan Continue supportive care for now Okay to start anticoagulation Protonix 40 mg p.o. daily Carafate 1 g p.o. q.h.s. Ensure supplements MiraLax and Colace Monitor labs I will follow up patient with you Plan discussed with: Patient, Spouse, Other (ER Nurse) ALBA LINCOLN MD Jun 29, 2025 12:22
[2025-06-29] MEDS ORDERED: DOCUSATE SOD 100 MG CAP PO PRN (12:30)
[2025-06-29] MEDS: IRON SUCROSE COMPLEX 110 ML IV SCH (14:00)
--- NOTE | 2025-06-29 15:43 | DVHPN2 ---
Progress Note - Dictate Date Seen: Jun 29, 2025 Medical Necessity Reason Pt with a Central, PICC or Fol: No Subjective Clinically stable. Complains of abdominal bloating. Hemoglobin remained stable. V/Q scan low probability for PE. No signs of active or acute bleeding. vital signs Vital Sign Date Time Temp Pulse Resp B/P (MAP) Pulse Ox O2 Delivery O2 Flow Rate FiO2 06/29/25 14:00 85 18 111/80 (90) 96 06/29/25 12:00 98.7 98.7 06/29/25 11:46 Room Air* 0 21 Total Intake and Output 06/28/25 06/28/25 06/29/25 15:00 23:00 07:00 Intake Total 75 ml Balance 75 ml medications Current Medications Medications Dose Ordered Sig/Tricia Route Start Time Stop Time Status Last Admin Dose Admin Nitroglycerin 0.4 mg Q5MINP PRN SL 06/27/25 21:15 Morphine Sulfate 2 mg Q30M PRN IV 06/27/25 21:15 06/28/25 11:20 2 MG Sodium Chloride 1,000 ml @ 75 mls/hr [id number] IV 06/27/25 21:15 06/29/25 13:46 75 MLS/HR Pantoprazole Sodium 40 mg BID IV 06/27/25 22:00 06/29/25 11:01 40 MG Ondansetron HCl 4 mg Q6HPRN PRN IV 06/27/25 21:15 Donepezil HCl 5 mg QPM PO 06/28/25 18:00 06/28/25 18:37 5 MG Quetiapine Fumarate 25 mg BID PO 06/28/25 10:00 06/29/25 11:01 25 MG Lactulose 30 ml BID PO 06/29/25 10:00 06/29/25 11:01 30 ML Polyethylene Glycol 17 gm DAILY PO 06/30/25 10:00 Docusate Sodium 100 mg BIDPRN PRN PO 06/29/25 12:30 Iron Sucrose 110 ml @ 110 mls/hr DAILY@1200 IV 06/29/25 14:00 07/03/25 12:59 Sucralfate 1 gm TID@0600,1130,2200 PO 06/29/25 22:00 Megestrol Acetate 200 mg BID PO 06/29/25 22:00 Apixaban 5 mg BID PO 06/29/25 22:00 Acetaminophen 650 mg Q4HP PRN PO 06/29/25 15:00 objective Comfortable in bed. Alert awake oriented to place and person. HEENT neck supple no JVD. Heart regular rate and rhythm S1-S2. Lungs fair air movement without rales wheezes. Abdomen appears bloated tympanic to palpation. Nontender soft and positive active bowel sounds. Extremities no edema positive pulses. laboratory and microbiology Laboratory Tests 06/29/25 05:31 Test 06/29/25 05:31 Range/Units Serum Glucose 92 74-106 mg/dL Assessment/Plan No signs of active bleeding. Hemoglobin stable. Therefore given his acute DVT I will start him on Eliquis lower dose anticoagulation from [facility] and watch for any precipitous drop in hemoglobin levels. If hemoglobin drops below eight we will DC Eliquis. Give him blood transfusion. Otherwise for his bloating I will start him on simethicone. Advance his diet to full liquid diet. Continue rest of supportive care and treatment. Further clinical management per clinical course. Patient encouraged ambulation and out of bed to chair. Problems(with codes): (1) DVT (deep venous thrombosis) (2) Dementia (3) Abdominal pain Plan discussed with: Patient, Other AYLA RAMIREZ MD Jun 29, 2025 15:43
[2025-06-29] MEDS: SIMETHICONE 80 MG CHEWABLE TABLET PO SCH (18:14)
[2025-06-29] MEDS: ACETAMINOPHEN 325 MG TAB PO PRN (18:14)
[2025-06-29] MEDS: MEGESTROL ACET 400MG/10ML ORAL SUSP PO SCH (22:00)
[2025-06-29] MEDS: APIXABAN 5 MG TAB PO SCH (22:00)
[2025-06-29] MEDS: SUCRALFATE 1 GM/10 ML ORAL SUSP PO SCH (22:00)
[2025-06-29] MEDS: OLANZapine 5 MG TAB PO SCH (22:12)
[2025-06-30] MEDS: diphenhdrAMINE HCL 50 MG/1 ML VL IV ONE (00:21)
[2025-06-30 05:45] LABS: Hematocrit 28.0 % (41.0-53.0); Hemoglobin 9.5 g/dL (13.5-17.5); Mean Corpuscular Hemoglobin 28.6 pg (28.0-32.0); Mean Corpuscular Volume 84.6 fL (80.0-100.0); Nucleated Red Blood Cells % 0.1 %
[2025-06-30 05:56] LABS: Potassium 3.5 mmol/L (3.5-5.1); Sodium 144 mmol/L (136-145)
[2025-06-30 05:57] LABS: Anion Gap 14 (5-15); Calcium 9.4 mg/dL (8.7-10.4); Carbon Dioxide 21 mmol/L (20-31)
[2025-06-30 06:01] LABS: Chloride 109 mmol/L (98-107)
[2025-06-30 06:02] LABS: BUN/Creatinine Ratio 13.9 (10.0-20.0); Blood Urea Nitrogen 17 mg/dL (9-23); Glucose 109 mg/dL (74-106)
[2025-06-30] MEDS: HALOPERIDOL LACTATE 5 MG/ML INJ VIAL IM ONE (08:49)
[2025-06-30 09:00] VITALS: BP 139/83; PULSE 81; O2SAT 96
[2025-06-30] MEDS: LORazepam 2MG/ML-1ML VIAL ONE (09:19)
[2025-06-30] MEDS: LORazepam 2MG/ML-1ML VIAL IV ONE (09:33)
[2025-06-30] MEDS: POLYETHYLENE GLYCOL 17 GM PWDR PO SCH (11:00)
[2025-06-30 13:00] VITALS: BP 135/81; O2SAT 100
[2025-06-30 17:00] VITALS: PULSE 79; RESP 16; O2SAT 95
--- NOTE | 2025-06-30 18:27 | DVHPN2 ---
Progress Note - Dictate Date Seen: Jun 30, 2025 Medical Necessity Reason Pt with a Central, PICC or Fol: No Subjective Apparently patient got agitated overnight. Patient received a dose of Benadryl subsequently Haldol and this morning Ativan. Currently he is calm. at bedside. vital signs Vital Sign Date Time Temp Pulse Resp B/P (MAP) Pulse Ox O2 Delivery O2 Flow Rate FiO2 06/30/25 17:00 79 16 95 06/29/25 20:00 98.4 98.4 06/29/25 11:46 Room Air* 0 21 Total Intake and Output 06/29/25 06/29/25 06/30/25 15:00 23:00 07:00 Output Total 300 ml Balance -300 ml medications Current Medications Medications Dose Ordered Sig/Tricia Route Start Time Stop Time Status Last Admin Dose Admin Nitroglycerin 0.4 mg Q5MINP PRN SL 06/27/25 21:15 Morphine Sulfate 2 mg Q30M PRN IV 06/27/25 21:15 06/28/25 11:20 2 MG Sodium Chloride 1,000 ml @ 75 mls/hr [id number] IV 06/27/25 21:15 06/30/25 16:19 75 MLS/HR Pantoprazole Sodium 40 mg BID IV 06/27/25 22:00 06/30/25 11:07 40 MG Ondansetron HCl 4 mg Q6HPRN PRN IV 06/27/25 21:15 Donepezil HCl 5 mg QPM PO 06/28/25 18:00 06/29/25 18:14 5 MG Quetiapine Fumarate 25 mg BID PO 06/28/25 10:00 06/30/25 10:42 25 MG Lactulose 30 ml BID PO 06/29/25 10:00 06/30/25 11:00 30 ML Polyethylene Glycol 17 gm DAILY PO 06/30/25 10:00 06/30/25 11:00 17 GM Docusate Sodium 100 mg BIDPRN PRN PO 06/29/25 12:30 Iron Sucrose 110 ml @ 110 mls/hr DAILY@1200 IV 06/29/25 14:00 07/03/25 12:59 06/30/25 14:08 110 MLS/HR Sucralfate 1 gm TID@0600,1130,2200 PO 06/29/25 22:00 8/10/25 14:09 1 GM Megestrol Acetate 200 mg BID PO 06/29/25 22:00 06/30/25 11:00 200 MG Apixaban 5 mg BID PO 06/29/25 22:00 06/30/25 10:42 5 MG Acetaminophen 650 mg Q4HP PRN PO 06/29/25 15:00 06/29/25 18:14 650 MG Dimethicone 80 mg QID PO 06/29/25 18:00 06/30/25 14:09 80 MG Olanzapine 2.5 mg DAILY PO 06/29/25 22:00 06/30/25 10:42 2.5 MG objective Comfortable in bed. Alert awake but confused. HEENT neck supple no JVD. Heart regular rate and rhythm S1-S2. Lungs fair air movement without rales wheezes. Abdomen appears bloated tympanic to palpation. Nontender soft and positive active bowel sounds. Extremities no edema positive pulses. laboratory and microbiology Laboratory Tests 06/30/25 05:14 Test 06/30/25 05:14 Range/Units Serum Glucose 109 H 74-106 mg/dL Assessment/Plan To continue present management as he is on. Patient's at bedside reports patient still having some nausea and poor appetite. Therefore I will start him on Megace as appetite stimulant. Start him on Reglan for 24 hours as a prokinetic agent. Ensure protein shakes. Otherwise continue rest of supportive care and treatment. Overall prognosis remains guarded. Discussed with the patient's at bedside and nurse regarding care plan. Problems(with codes): (1) DVT (deep venous thrombosis) (2) Dementia (3) Elevated troponin (4) Abdominal pain (5) Metabolic encephalopathy Plan discussed with: Spouse AYLA RAMIREZ MD Jun 30, 2025 18:27
[2025-06-30] MEDS: SODIUM CHLORIDE 0.9% 1,000 ML IV SCH (18:30)
--- NOTE | 2025-06-30 19:08 | DVHPN2 ---
Progress Note - Dictate Date Seen: Jun 30, 2025 Medical Necessity Reason Pt with a Central, PICC or Fol: No Subjective Apparently patient got agitated overnight. Patient received a dose of Benadryl subsequently Haldol and this morning Ativan. Currently he is calm. at bedside. Patient is tolerating a diet but eating poorly CT scan had shown small cholelithiasis No bowel movement is recorded but stool for occult blood reported negative add bedside has multiple complaints about his poor appetite abdominal discomfort Patient was also not had a bowel movement for two or three days but his states it is because he has not eaten She did show me the endoscopy report from gastro group done on 05/17/2025 EGD had shown a 1 cm sliding-type hiatal hernia with mild gastritis Patient apparently also had a colonoscopy done at the same day but the report was not available Patient's stated he had some sort of blockage possibly diverticular disease and had been advised more fiber and Metamucil intake which she has been giving However the patient is concerned about his medical condition Echocardiogram was at 60% ejection fraction, patient has been seen by clinical physician assistant vital signs Vital Sign Date Time Temp Pulse Resp B/P (MAP) Pulse Ox O2 Delivery O2 Flow Rate FiO2 06/30/25 17:00 79 16 95 06/29/25 20:00 98.4 98.4 06/29/25 11:46 Room Air* 0 21 Total Intake and Output 06/29/25 06/29/25 06/30/25 15:00 23:00 07:00 Output Total 300 ml Balance -300 ml medications Current Medications Medications Dose Ordered Sig/Tricia Route Start Time Stop Time Status Last Admin Dose Admin Nitroglycerin 0.4 mg Q5MINP PRN SL 06/27/25 21:15 Morphine Sulfate 2 mg Q30M PRN IV 06/27/25 21:15 06/28/25 11:20 2 MG Pantoprazole Sodium 40 mg BID IV 06/27/25 22:00 06/30/25 11:07 40 MG Ondansetron HCl 4 mg Q6HPRN PRN IV 06/27/25 21:15 Donepezil HCl 5 mg QPM PO 06/28/25 18:00 06/29/25 18:14 5 MG Quetiapine Fumarate 25 mg BID PO 06/28/25 10:00 06/30/25 10:42 25 MG Lactulose 30 ml BID PO 06/29/25 10:00 06/30/25 11:00 30 ML Polyethylene Glycol 17 gm DAILY PO 06/30/25 10:00 06/30/25 11:00 17 GM Docusate Sodium 100 mg BIDPRN PRN PO 06/29/25 12:30 Iron Sucrose 110 ml @ 110 mls/hr DAILY@1200 IV 06/29/25 14:00 07/03/25 12:59 06/30/25 14:08 110 MLS/HR Sucralfate 1 gm TID@0600,1130,2200 PO 06/29/25 22:00 06/30/25 14:09 1 GM Megestrol Acetate 200 mg BID PO 06/29/25 22:00 06/30/25 11:00 200 MG Apixaban 5 mg BID PO 06/29/25 22:00 06/30/25 10:42 5 MG Acetaminophen 650 mg Q4HP PRN PO 06/29/25 15:00 06/29/25 18:14 650 MG Dimethicone 80 mg QID PO 06/29/25 18:00 06/30/25 14:09 80 MG Olanzapine 2.5 mg DAILY PO 06/29/25 22:00 06/30/25 10:42 2.5 MG Sodium Chloride 1,000 ml @ 50 mls/hr Q20H IV 06/30/25 18:30 Megestrol Acetate 200 mg BID PO 06/30/25 22:00 Enteral Nutritional Formula 240 ml BIDWM PO 07/01/25 08:00 Metoclopramide HCl 5 mg Q6HR IV 07/01/25 00:00 07/01/25 23:59 objective General: NAD, AAO Chest: lung dia clear to auscultation Heart: RRR, no murmur Abdomen: Mildly distended, no tenderness to palpation, +BS; obese laboratory and microbiology Laboratory Tests 06/30/25 05:14 Test 06/30/25 05:14 Range/Units Serum Glucose 109 H 74-106 mg/dL Problems(with codes): (1) Constipation (2) Metabolic encephalopathy (3) Cholelithiasis (4) Dementia (5) Abdominal pain Prognosis Plan Continue supportive care for now Okay to start anticoagulation Protonix 40 mg p.o. daily Carafate 1 g p.o. q.h.s. Ensure supplements MiraLax and Colace Patient was started on Reglan and Megace by the hospitalist Monitor labs I will follow up patient with you Plan discussed with: Patient, Spouse ALBA LINCOLN MD Jun 30, 2025 19:08
[2025-06-30] MEDS: MEGESTROL ACET 400MG/10ML ORAL SUSP PO SCH (22:36)
[2025-07-01] VITALS (7 sets, daily range): BP systolic 135–148; BP diastolic 83–90; PULSE 79–103; RESP 16–18; TEMP 97.4–98.9; O2SAT 94–100
[2025-07-01] MEDS: METOCLOPRAMIDE HCL 5MG/ml INJ 2ml VIAL IV SCH (00:43)
[2025-07-01] MEDS: Ensure Enlive Strawberry 8oz Bottle PO SCH (08:00)
--- NOTE | 2025-07-01 16:10 | DVHPN2 ---
Progress Note - Dictate Date Seen: Jul 01, 2025 Medical Necessity Reason Pt with a Central, PICC or Fol: No Subjective Patient's mood is calm. No further agitation overnight. At present is at bedside. He is more alert and awake vital signs Vital Sign Date Time Temp Pulse Resp B/P (MAP) Pulse Ox O2 Delivery O2 Flow Rate FiO2 07/01/25 14:30 98 Room Air* 0 21 07/01/25 13:40 97.4 79 16 140/83 (102) 97.4 medications Current Medications Medications Dose Ordered Sig/Tricia Route Start Time Stop Time Status Last Admin Dose Admin Nitroglycerin 0.4 mg Q5MINP PRN SL 06/27/25 21:15 Morphine Sulfate 2 mg Q30M PRN IV 06/27/25 21:15 06/28/25 11:20 2 MG Pantoprazole Sodium 40 mg BID IV 06/27/25 22:00 07/01/25 09:39 40 MG Ondansetron HCl 4 mg Q6HPRN PRN IV 06/27/25 21:15 Donepezil HCl 5 mg QPM PO 06/28/25 18:00 06/30/25 19:46 5 MG Quetiapine Fumarate 25 mg BID PO 06/28/25 10:00 07/01/25 09:39 25 MG Lactulose 30 ml BID PO 06/29/25 10:00 07/01/25 09:39 30 ML Polyethylene Glycol 17 gm DAILY PO 06/30/25 10:00 07/01/25 09:39 17 GM Docusate Sodium 100 mg BIDPRN PRN PO 06/29/25 12:30 Iron Sucrose 110 ml @ 110 mls/hr DAILY@1200 IV 06/29/25 14:00 07/03/25 12:59 07/01/25 11:38 110 MLS/HR Sucralfate 1 gm TID@0600,1130,2200 PO 06/29/25 22:00 07/01/25 09:39 1 GM Apixaban 5 mg BID PO 06/29/25 22:00 07/01/25 09:39 5 MG Acetaminophen 650 mg Q4HP PRN PO 06/29/25 15:00 07/01/25 11:50 650 MG Dimethicone 80 mg QID PO 06/29/25 18:00 07/01/25 11:38 80 MG Olanzapine 2.5 mg DAILY PO 06/29/25 22:00 07/01/25 09:39 2.5 MG Sodium Chloride 1,000 ml @ 50 mls/hr Q20H IV 06/30/25 18:30 07/01/25 13:09 50 MLS/HR Megestrol Acetate 200 mg BID PO 06/30/25 22:00 07/01/25 11:21 200 MG Enteral Nutritional Formula 240 ml BIDWM PO 07/01/25 08:00 07/01/25 08:00 240 ML Metoclopramide HCl 5 mg Q6HR IV 07/01/25 00:00 07/01/25 23:59 07/01/25 11:38 5 MG objective Comfortable in bed. Alert awake knows his name and his is at bedside. HEENT neck supple no JVD. Heart regular rate and rhythm S1-S2. Lungs fair air movement without rales wheezes. Abdomen appears bloated tympanic to palpation. Nontender soft and positive active bowel sounds. Extremities no edema positive pulses. laboratory and microbiology Laboratory Tests 06/30/25 05:14 Test 06/30/25 05:14 Range/Units Serum Glucose 109 H 74-106 mg/dL Assessment/Plan I will advance diet to soft diet today. Physical therapy evaluation to get him out of bed ambulate. Social Service for safety evaluation at home. Start him on antispasmodic Levsin for stomach cramps. Otherwise continue present medications and management. If he remains stable consider discharge soon. Discussed with the at bedside as well as nurse. Plan discussed with: Patient AYLA RAMIREZ MD Jul 01, 2025 16:10
[2025-07-01] MEDS ORDERED: FLEET ENEMA(ADULT) 135 ML PR ONE (16:45)
--- NOTE | 2025-07-01 18:04 | DVHPN2 ---
Progress Note Date Seen: Jul 01, 2025 Resident Creating Document: JARON CARPIO RESIDENT Medical Necessity Reason Pt with a Central, PICC or Fol: No Subjective Review of Systems 75-year-old male with past medical history of dementia, COPD, CKD, diabetes, HTN, GERD, hiatal hernia presented to ER with complains of abdominal pain and black stool. Patient complains of abdominal discomfort for the past 2-4 weeks. Also having black stool for the past two weeks. Admits to using Pepto-Bismol. No nausea or vomiting. Patient is status post EGD and colonoscopy 05/17/2025. Patient unsure which facility he had a done and unsure about results. Per chart patient is on Eliquis. Patient also having elevated troponins and Cardiology has been consulted TODAY'S FINDINGS Patient's mood is calm. No further agitation overnight. He is more alert and awake. Hemoglobin is stable at 9.5. The patient is started on Fleet enema for his bowel movements. His last bowel movement was on June 27. Patient does not complain of any nausea vomiting and abdominal pain. The patient diet is advanced to soft diet today. Physical therapy evaluation to get him out of bed to ambulate. Severity Of Illness Coordinator for safety evaluation at home. The patient has been started on antispasmodic lives in for stomach cramps. Possible discharge tomorrow if the patient continues to be stable Objective vital signs Vital Sign Date Time Temp Pulse Resp B/P (MAP) Pulse Ox O2 Delivery O2 Flow Rate FiO2 07/01/25 16:30 98.2 80 16 135/83 (100) 97 98.2 07/01/25 14:30 Room Air* 0 21 medications Current Medications Medications Dose Ordered Sig/Tricia Route Start Time Stop Time Status Last Admin Dose Admin Nitroglycerin 0.4 mg Q5MINP PRN SL 06/27/25 21:15 Morphine Sulfate 2 mg Q30M PRN IV 06/27/25 21:15 06/28/25 11:20 2 MG Pantoprazole Sodium 40 mg BID IV 06/27/25 22:00 07/01/25 09:39 40 MG Ondansetron HCl 4 mg Q6HPRN PRN IV 06/27/25 21:15 Donepezil HCl 5 mg QPM PO 06/28/25 18:00 06/30/25 19:46 5 MG Quetiapine Fumarate 25 mg BID PO 06/28/25 10:00 07/01/25 09:39 25 MG Lactulose 30 ml BID PO 06/29/25 10:00 07/01/25 09:39 30 ML Polyethylene Glycol 17 gm DAILY PO 06/30/25 10:00 07/01/25 09:39 17 GM Docusate Sodium 100 mg BIDPRN PRN PO 06/29/25 12:30 Iron Sucrose 110 ml @ 110 mls/hr DAILY@1200 IV 06/29/25 14:00 07/03/25 12:59 07/01/25 11:38 110 MLS/HR Sucralfate 1 gm TID@0600,1130,2200 PO 06/29/25 22:00 07/01/25 09:39 1 GM Apixaban 5 mg BID PO 06/29/25 22:00 07/01/25 09:39 5 MG Acetaminophen 650 mg Q4HP PRN PO 06/29/25 15:00 07/01/25 11:50 650 MG Olanzapine 2.5 mg DAILY PO 06/29/25 22:00 07/01/25 09:39 2.5 MG Sodium Chloride 1,000 ml @ 50 mls/hr Q20H IV 06/30/25 18:30 07/01/25 13:09 50 MLS/HR Megestrol Acetate 200 mg BID PO 06/30/25 22:00 07/01/25 11:21 200 MG Enteral Nutritional Formula 240 ml BIDWM PO 07/01/25 08:00 07/01/25 08:00 240 ML Metoclopramide HCl 5 mg Q6HR IV 07/01/25 00:00 07/01/25 23:59 07/01/25 11:38 5 MG Hyoscyamine 0.25 mg TID PO 07/01/25 22:00 Examination General: NAD, AAO Chest: lung dia clear to auscultation Heart: RRR, no murmur Abdomen: Mildly distended, no tenderness to palpation, +BS; obese laboratory and microbiology Laboratory Tests 06/30/25 05:14 Test 06/30/25 05:14 Range/Units Serum Glucose 109 H 74-106 mg/dL Problem List/Assessment/Plan Problem List/Assessment/Plan Assessment finding: (1) Constipation (2) Metabolic encephalopathy (3) Cholelithiasis (4) Dementia (5) Abdominal pain Plan/recommendations Started Fleet enema for patient's constipation and lack of bowel movement despite the appropriate bowel regimen Continue supportive care for now Okay to start anticoagulation Protonix 40 mg p.o. daily Carafate 1 g p.o. q.h.s. Ensure supplements MiraLax and Colace Patient was started on Reglan and Megace by the hospitalist Monitor labs We will follow-up with the patient very closely. Plan discussed with: Patient JARON CARPIO RESIDENT Jul 01, 2025 18:04
[2025-07-01] MEDS ORDERED: SUCR1TAB31 PO (18:59)
[2025-07-01] MEDS ORDERED: OLAN2.5T38 PO (18:59)
[2025-07-01] MEDS ORDERED: FERR325T24 PO (18:59)
[2025-07-01] MEDS: FLEET ENEMA(ADULT) 135 ML PR ONE (20:30)
[2025-07-01] MEDS: HYOSCYAMINE SULF 0.125 MG ODT TAB PO SCH (21:39)
[2025-07-02] MEDS ORDERED: LORazepam 2MG/ML-1ML VIAL IM ONE ×2 (00:15→14:00)
[2025-07-02 00:56] VITALS: BP 132/85; PULSE 113; RESP 18; TEMP 98.7; O2SAT 96
[2025-07-02 04:43] VITALS: BP 138/83; PULSE 108; RESP 20; TEMP 98.8; O2SAT 98
[2025-07-02] MEDS: LORazepam 2MG/ML-1ML VIAL IM PRN (05:14)
[2025-07-02 13:07] VITALS: BP 114/83; PULSE 78; RESP 20; O2SAT 97
--- NOTE | 2025-07-02 16:14 | DVHPN2 ---
Progress Note - Dictate Date Seen: Jul 02, 2025 Medical Necessity Reason Pt with a Central, PICC or Fol: No Subjective Patient is having sun downers. Today afternoon patient is agitated and refusing most of his care. He is sitting in the chair and not letting nurses to check his vitals. vital signs Vital Sign Date Time Temp Pulse Resp B/P (MAP) Pulse Ox O2 Delivery O2 Flow Rate FiO2 07/02/25 13:07 78 20 114/83 (93) 97 07/02/25 04:43 98.8 98.8 07/01/25 20:00 Room Air* 0 21 Total Intake and Output 07/01/25 07/01/25 07/02/25 15:00 23:00 07:00 Intake Total 110 ml 750 ml 300 ml Balance 110 ml 750 ml 300 ml medications Current Medications Medications Dose Ordered Sig/Tricia Route Start Time Stop Time Status Last Admin Dose Admin Nitroglycerin 0.4 mg Q5MINP PRN SL 06/27/25 21:15 Morphine Sulfate 2 mg Q30M PRN IV 06/27/25 21:15 06/28/25 11:20 2 MG Pantoprazole Sodium 40 mg BID IV 06/27/25 22:00 07/02/25 12:16 40 MG Ondansetron HCl 4 mg Q6HPRN PRN IV 06/27/25 21:15 Donepezil HCl 5 mg QPM PO 06/28/25 18:00 07/01/25 18:01 5 MG Quetiapine Fumarate 25 mg BID PO 06/28/25 10:00 07/02/25 12:21 25 MG Lactulose 30 ml BID PO 06/29/25 10:00 07/02/25 12:27 30 ML Polyethylene Glycol 17 gm DAILY PO 06/30/25 10:00 07/02/25 12:28 17 GM Docusate Sodium 100 mg BIDPRN PRN PO 06/29/25 12:30 Iron Sucrose 110 ml @ 110 mls/hr DAILY@1200 IV 06/29/25 14:00 07/03/25 12:59 07/01/25 11:38 110 MLS/HR Sucralfate 1 gm TID@0600,1130,2200 PO 06/29/25 22:00 07/02/25 12:26 1 GM Apixaban 5 mg BID PO 06/29/25 22:00 07/02/25 12:24 5 MG Acetaminophen 650 mg Q4HP PRN PO 06/29/25 15:00 07/01/25 21:53 650 MG Olanzapine 2.5 mg DAILY PO 06/29/25 22:00 07/02/25 12:21 2.5 MG Sodium Chloride 1,000 ml @ 50 mls/hr Q20H IV 06/30/25 18:30 07/01/25 13:09 50 MLS/HR Enteral Nutritional Formula 240 ml BIDWM PO 07/01/25 08:00 07/01/25 18:18 240 ML Hyoscyamine 0.25 mg TID PO 07/01/25 22:00 07/01/25 21:39 0.25 MG Megestrol Acetate 100 mg BID PO 07/02/25 22:00 objective Sitting in the chair. Safety at and and next to him. Irritable and confused. laboratory and microbiology Laboratory Tests 06/30/25 05:14 Test 06/30/25 05:14 Range/Units Serum Glucose 109 H 74-106 mg/dL Assessment/Plan Continue Seroquel Zyprexa as he is on. Use Haldol and Ativan IM as needed for irritability/agitation. We will change his medications to oral medications. Patient clinically stable. However is reluctant to take him home due to his agitation. We will monitor him overnight and if he is more calm we will arrange for home health and plan to discharge him in the morning. Discussed with the nurse regarding care plan. Problems(with codes): (1) Metabolic encephalopathy (2) Constipation (3) Dementia (4) Abdominal pain Dietary Evaluation Review Comments: 1) Ensure high protein 240ml TID 2) Monitor PO intake, lab values, weight trend, and I/O Expected Outcomes/Goals: GI symptoms to improve To meet >75% estimated needs Fu 3-5 days Plan discussed with: Other AYLA RAMIREZ MD Jul 02, 2025 16:14
[2025-07-02] MEDS: PANTOPRAZOLE 40 MG TAB PO SCH (17:00)
[2025-07-02 17:24] VITALS: BP 126/78; PULSE 84; RESP 18; O2SAT 96
[2025-07-02] MEDS: FLEET ENEMA(ADULT) 135 ML PR ONE (18:45)
--- NOTE | 2025-07-02 18:47 | DVHPN2 ---
Progress Note Date Seen: Jul 02, 2025 Resident Creating Document: JARON CARPIO RESIDENT Medical Necessity Reason Pt with a Central, PICC or Fol: No Subjective Review of Systems Today's progress- The patient his agitated in the afternoon. Reports no nausea vomiting abdominal pain hematemesis or melena. There is no indication of active GI pathology requiring invasive intervention at this time. The patient's hemoglobin remained stable at 9.5, and recent stool occult blood test is negative. The patient's bowel regimen includes polyethylene glycol, lactulose, sucralfate, pantoprazole on docusate, which the patient is tolerating. Tolerating feeds. Continue current bowel regimen. Monitor compliance. Plan is to discharge the patient in the morning if his agitation improves Objective vital signs Vital Sign Date Time Temp Pulse Resp B/P (MAP) Pulse Ox O2 Delivery O2 Flow Rate FiO2 07/02/25 17:24 07/02/25 08:10 Room Air* 0 21 07/02/25 04:43 98.8 98.8 Total Intake and Output 07/01/25 07/01/25 07/02/25 15:00 23:00 07:00 Intake Total 110 ml 750 ml 300 ml Balance 110 ml 750 ml 300 ml medications Current Medications Medications Dose Ordered Sig/Tricia Route Start Time Stop Time Status Last Admin Dose Admin Nitroglycerin 0.4 mg Q5MINP PRN SL 06/27/25 21:15 Morphine Sulfate 2 mg Q30M PRN IV 06/27/25 21:15 06/28/25 11:20 2 MG Ondansetron HCl 4 mg Q6HPRN PRN IV 06/27/25 21:15 Donepezil HCl 5 mg QPM PO 06/28/25 18:00 07/01/25 18:01 5 MG Quetiapine Fumarate 25 mg BID PO 06/28/25 10:00 07/02/25 12:21 25 MG Lactulose 30 ml BID PO 06/29/25 10:00 07/02/25 12:27 30 ML Polyethylene Glycol 17 gm DAILY PO 06/30/25 10:00 07/02/25 12:28 17 GM Docusate Sodium 100 mg BIDPRN PRN PO 06/29/25 12:30 Sucralfate 1 gm TID@0600,1130,2200 PO 06/29/25 22:00 07/02/25 12:26 1 GM Apixaban 5 mg BID PO 06/29/25 22:00 07/02/25 12:24 5 MG Acetaminophen 650 mg Q4HP PRN PO 06/29/25 15:00 07/01/25 21:53 650 MG Olanzapine 2.5 mg DAILY PO 06/29/25 22:00 07/02/25 12:21 2.5 MG Enteral Nutritional Formula 240 ml BIDWM PO 07/01/25 08:00 07/01/25 18:18 240 ML Hyoscyamine 0.25 mg TID PO 07/01/25 22:00 07/01/25 21:39 0.25 MG Megestrol Acetate 100 mg BID PO 07/02/25 22:00 Pantoprazole Sodium 40 mg BID@0600,1700 PO 07/02/25 17:00 Examination General: NAD, AAO Chest: lung dia clear to auscultation Heart: RRR, no murmur Abdomen: Mildly distended, no tenderness to palpation, +BS; obese laboratory and microbiology Laboratory Tests 06/30/25 05:14 Test 06/30/25 05:14 Range/Units Serum Glucose 109 H 74-106 mg/dL Problem List/Assessment/Plan Problem List/Assessment/Plan Assessment finding: (1) Constipation (2) Metabolic encephalopathy (3) Cholelithiasis (4) Dementia (5) Abdominal pain Plan/recommendations Continue supportive care for now Okay to start anticoagulation Protonix 40 mg p.o. daily Carafate 1 g p.o. q.h.s. Ensure supplements MiraLax and Colace, adult Fleet Enema Patient was started on Reglan and Megace by the hospitalist Monitor labs We will follow-up with the patient very closely. Plan discussed with the patient and his and a the attending physician they agreed upon. Plan discussed with: Patient, Spouse Dietary Evaluation Review Comments: 1) Ensure high protein 240ml TID 2) Monitor PO intake, lab values, weight trend, and I/O Expected Outcomes/Goals: GI symptoms to improve To meet >75% estimated needs Fu 3-5 days JARON CARPIO RESIDENT Jul 02, 2025 18:47
[2025-07-02] MEDS: HALOPERIDOL LACTATE 5 MG/ML INJ VIAL IM ONE (20:01)
[2025-07-02] MEDS: MEGESTROL ACET 400MG/10ML ORAL SUSP PO SCH (21:13)
[2025-07-03 08:00] VITALS: RESP 18
[2025-07-03] MEDS ORDERED: MEGE1SUS5 PO (12:32)
[2025-07-03] MEDS ORDERED: SUCR1TAB31 PO (12:32)
[2025-07-03] MEDS ORDERED: PANT40TA57 PO (12:32)
[2025-07-03] MEDS ORDERED: APIX5TAB PO (12:32)
--- NOTE | 2025-07-03 12:34 | DVHDS2 ---
Discharge Summary Date of Admission Jun 27, 2025 at 21:08 Date of Discharge: Jul 03, 2025 Labs/Diagnostic Data: Laboratory Results Test 06/30/25 14:55 06/30/25 05:14 06/28/25 14:08 06/28/25 10:35 Stool Occult Blood Negative (Negative) Stool Occult Blood Sample #3 (Negative) White Blood Count 6.5 10^3/uL (4.4-10.8) Red Blood Count 3.31 10^6/uL (4.5-5.90) Hemoglobin 9.5 g/dL (13.5-17.5) Hematocrit 28.0 % (41.0-53.0) Mean Corpuscular Volume 84.6 fL (80.0-100.0) Mean Corpuscular Hemoglobin 28.6 pg (28.0-32.0) Mean Corpuscular Hemoglobin Concent 33.8 g/dL (32.0-36.0) Red Cell Distribution Width 14.5 % (11.8-14.3) Platelet Count 225 10^3/uL (140-450) Mean Platelet Volume 8.1 fL (6.9-10.8) Neutrophils (%) (Auto) 73.3 % (37.0-80.0) Lymphocytes (%) (Auto) 14.1 % (10.0-50.0) Monocytes (%) (Auto) 8.1 % (0.0-12.0) Eosinophils (%) (Auto) 3.6 % (0.0-7.0) Basophils (%) (Auto) 0.9 % (0.0-2.0) Neutrophils # (Auto) 4.7 10 ^3/uL (1.6-8.6) Lymphocytes # (Auto) 0.9 10 ^3/uL (0.4-5.4) Monocytes # (Auto) 0.5 10 ^3/uL (0-1.3) Eosinophils # (Auto) 0.2 10 ^3/uL (0-0.8) Basophils # (Auto) 0.1 10 ^3/uL (0-0.2) Nucleated Red Blood Cells 0.1 % Sodium Level 144 mmol/L (136-145) Potassium Level 3.5 mmol/L (3.5-5.1) Chloride Level 109 mmol/L (98-107) Carbon Dioxide Level 21 mmol/L (20-31) Anion Gap 14 (5-15) Blood Urea Nitrogen 17 mg/dL (9-23) Creatinine 1.22 mg/dL (0.700-1.30) Glomerular Filtration Rate Calc 61 mL/min (>90) BUN/Creatinine Ratio 13.9 (10.0-20.0) Serum Glucose 109 mg/dL (74-106) Calcium Level 9.4 mg/dL (8.7-10.4) Troponin I High Sensitivity 93 ng/L (</=54) Urine Color Yellow (Yellow) Urine Clarity Clear (Clear) Urine pH 5.5 (5.0-9.0) Urine Specific [place] 1.018 (1.001-1.035) Urine Protein 1+ (Negative) Urine Ketones Negative (Negative) Urine Blood 1+ /uL (Negative) Urine Nitrite Negative (Negative) Urine Bilirubin Negative (Negative) Urine Urobilinogen Normal mg/dL (Negative) Urine Leukocyte Esterase Negative /uL (Negative) Urine RBC 3 /hpf (0 - 3) Urine Microscopic WBC 4 /HPF (0-3) Urine Squamous Epithelial Cells None seen /hpf (<5) Urine Bacteria None seen /hpf (None Seen) Urine Glucose Normal mg/dL (Normal) Test 06/27/25 22:02 06/27/25 13:01 D-Dimer, Quantitative 17.69 mg/L FEU (0.0-0.49) Total Bilirubin 0.8 mg/dL (0.2-1.0) Aspartate Amino Transferase (AST) 24 U/L (13-40) Alanine Aminotransferase (ALT) 14 U/L (7-40) Alkaline Phosphatase 83 U/L (46-116) B-Type Natriuretic Peptide 106.70 pg/mL (0-100) Total Protein 8.0 g/dL (5.7-8.2) Albumin 4.9 g/dL (3.2-4.8) Lipase 37 U/L (12-53) Other Laboratory Tests 06/30/25 05:14 Brief Hx & Hospital Course: Mr. Juany Amaral is a 75yo male with a history of dementia, COPD, CKD, diabetes, hypertension, GERD, hiatal hernia and post colonoscopy early hemorrhage April 2025 presents with a chief complaint of abdominal pain and black stool. Pt with history of dementia, ax0x2 baseline, and lives with spouse and spouse called EMS stating patient been having abdominal pain for the past 1x month. Patient reports having dark tarry stools for past month with associated abdominal pain as reported per with a poor appetite. Patient reports they were seen at on Tuesday and were told patient has a blood clot in his lungs. Denies being on anticoagulants. However list provided by patient Gladys on current medication list. Patient reports associated shortness of breath, currently 95-97% on room air. Patient admitted for further evaluation and treatment. Patient is admitted and evaluated by GI and Cardiology. Patient has poor appetite from his advanced dementia and poor ambulatory status/activity. Patient is medically treated. He is noted to have a lower extremity DVT due to poor ambulatory status. He is started on anticoagulation. Patient already had EGD colonoscopy outpatient basis. Patient continued on Protonix and Carafate. I have added Megace for appetite stimulant. It has improved. However while in the hospital patient continued to have sun downers in the evening with a agitation. Patient is continued on his Seroquel and Zyprexa and Haldol is given as needed. Otherwise patient is tolerating his diet. Not having any abdominal pain. He is back to baseline normal status. Therefore it is felt he could be safely discharged home. I have talked with the on multiple occasions regarding his hospital diagnosis, treatment he received, discharge medications, discharge instructions follow-up plan of care. She has verbalized understanding of these and agree with the care plan as outlined. Consults/Reason for consult Problems(with codes): (1) Constipation (2) Metabolic encephalopathy (3) Cholelithiasis (4) Dementia (5) Abdominal pain Prognosis Plan Continue supportive care for now Okay to start anticoagulation Protonix 40 mg p.o. daily Carafate 1 g p.o. q.h.s. Ensure supplements MiraLax and Colace Patient was started on Reglan and Megace by the hospitalist Monitor labs I will follow up patient with you Plan discussed with: Patient, Spouse ALBA LINCOLN MD Jun 30, 2025 19:08 Operations or Procedures ORDER NUMBER(s): [id number], ACCESSION NUMBER(s): [id number] APPROVED REPORT EXAM: Two-dimensional and M-mode echocardiogram with Doppler and color Doppler. Blood Pressure: 133/92 mmHg INDICATION Elevated Trop RISK FACTORS Height: 5'10", Weight: 140 DIMENSIONS LVDd 3.5 (3.8-5.7cm) LA (2D) 3.8 (1.9-4.0cm) Aortic Root 3.5 (2.0- 3.7cm) LVDs 2.5 (2.5-4.0cm) LA (MM) (1.9-4.0cm) Aortic Cusp Exc 1.9 (1.5- 2.0cm) EF (%) 54.0 (55-70%) Rt. Atrium 5.4 (1.9-4.0cm) Asc. Aorta 3.3 cm IVSd 1.8 (0.7-1.1cm) RV (D) (1.8-2.4cm) PWd 1.7 (0.7-1.1cm) Mitral Valve Mitral Mitral Stenosis E wave 0.54m/s MV Mean GR. mmHg A wave 0.98m/s MV Peak GR. mmHg E/A ratio 0.6 2D MVA cm2 DECEL Time 280ms PRESS 1/2 Time ms Aortic Valve Aortic Valve Aortic Stenosis V1 0.92m/s AO Mean GR. 5mmHg V2 1.39m/s AO Peak GR. 8mmHg LVOT Diameter 2.4 (1.8-2.4cm) Doppler JONEL 2.99cm2 Pulmonic Valve V2 0.80m/s Tricuspid Valve TR Velocity 3.75m/s RVSP 64mmHg Other Information Quality : Technically Limited Rhythm : Technically limited study due to patient position. Conclusion There is moderate to severe concentric left ventricular hypertrophy Left ventricular systolic function is preserved The ejection fraction is estimated at 60% Right heart is dilated There is moderate tricuspid regurgitation There is moderate pulmonary hypertension estimated at 57 mmHg There is trivial pericardial effusion SIGNED BY: STACY CHRISTIANSON MD SIGNED DATE/TIME: 06/28/25 9208 Condition at Discharge: Stable Final Diagnosis/Problems List Lower extremity DVT, adult failure to thrive, dementia syndrome, GERD Discharge Disposition: Home Discharge Instruct/Medications Diet: Consistent carbohydrate, Cardiac 2g Na,low cholest Activity: No Restrictions, As Tolerated Activity comment: With a walker/assistance Follow Up/Referral: Primary care physician for DVT and failure to thrive management Medications: As prescribed and home medications per discharge med reconciliation list Scheduled Amlodipine Besylate (Amlodipine Besylate), 1 TAB PO DAILY Apixaban Base (Eliquis), 5 MG PO BID Donepezil Hydrochloride (Aricept), 5 MG PO QPM Ferrous Sulfate (Ferrous Sulfate), 325 MG PO DAILY, (Reported) Losartan Potassium (Losartan Potassium), 50 MG PO DAILY Megestrol Acetate (Appetite) (Megestrol Acetate), 2 ML PO DAILY Olanzapine (Olanzapine), 2.5 MG PO HS, (Reported) Pantoprazole Sodium Sesquihydr (Pantoprazole Sodium Dr), 40 MG PO DAILY Quetiapine Fumerate (Seroquel), 0.5 TAB PO BID Sucralfate (Carafate), 1 GM PO QID Scheduled PRN Ibuprofen Micronized (Ibuprofen), 400 MG PO BIDP PRN Discharge Statement: "Patient was advised to return to the ER or call 911 if any headaches, dizziness, shortness of breath, chest pain, abdominal pain, bleeding, fevers, or worsening of medical condition. Patient was counseled about treatment plan, medications, possible side effects, patientverbalized understanding. All questions were answered to the best of my ability. This discharge took greater then 30 minutes in planning, reviewing documentation, counseling the patient, and discussing with other team members." ASSESSMENT ASSESSMENT Assessment Lower extremity DVT, adult failure to thrive, dementia syndrome, GERD AYLA RAMIREZ MD Jul 03, 2025 12:34
[2025-07-03 13:17] VITALS: PULSE 80; RESP 18; TEMP 98.6; O2SAT 96
--- NOTE | 2025-07-03 17:48 | DVHPN2 ---
Progress Note Date Seen: Jul 03, 2025 Resident Creating Document: JARON CARPIO RESIDENT Has the PT tested + for MRSA If YES, has PT been informed?: No Medical Necessity Reason Pt with a Central, PICC or Fol: No Subjective Review of Systems Today's progress Currently refusing medications, though agitation has improved since admission. No nausea, vomiting, abdominal pain, hematemesis, melena or hematochezia. Appetite improved with the use of megace appetite stimulant. Constipation has also improved his last bowel movement was yesterday. Continues to experience and evening agitation related dementia but improved today. Oral intake tolerated on oral soft diet with feeding assistance GI procedures planned inpatient as EGD and colonoscopy were completed as an outpatient basis recently, with normal findings. Planned for discharge today with outpatient GI follow-up Objective vital signs Vital Sign Date Time Temp Pulse Resp B/P (MAP) Pulse Ox O2 Delivery O2 Flow Rate FiO2 07/03/25 13:17 98.6 80 18 96 07/03/25 08:00 Room Air* 0 21 07/02/25 17:24 Total Intake and Output 07/02/25 07/02/25 07/03/25 15:00 23:00 07:00 Intake Total 240 ml 0 ml Balance 240 ml 0 ml medications Current Medications Medications Dose Ordered Sig/Tricia Route Start Time Stop Time Status Last Admin Dose Admin Nitroglycerin 0.4 mg Q5MINP PRN SL 06/27/25 21:15 Morphine Sulfate 2 mg Q30M PRN IV 06/27/25 21:15 06/28/25 11:20 2 MG Ondansetron HCl 4 mg Q6HPRN PRN IV 06/27/25 21:15 Donepezil HCl 5 mg QPM PO 06/28/25 18:00 07/01/25 18:01 5 MG Quetiapine Fumarate 25 mg BID PO 06/28/25 10:00 07/02/25 21:12 25 MG Lactulose 30 ml BID PO 06/29/25 10:00 07/02/25 21:13 30 ML Polyethylene Glycol 17 gm DAILY PO 06/30/25 10:00 07/02/25 12:28 17 GM Docusate Sodium 100 mg BIDPRN PRN PO 06/29/25 12:30 Sucralfate 1 gm TID@0600,1130,2200 PO 06/29/25 22:00 07/03/25 07:13 1 GM Apixaban 5 mg BID PO 06/29/25 22:00 07/02/25 21:12 5 MG Acetaminophen 650 mg Q4HP PRN PO 06/29/25 15:00 07/01/25 21:53 650 MG Olanzapine 2.5 mg DAILY PO 06/29/25 22:00 07/02/25 12:21 2.5 MG Enteral Nutritional Formula 240 ml BIDWM PO 07/01/25 08:00 07/01/25 18:18 240 ML Hyoscyamine 0.25 mg TID PO 07/01/25 22:00 07/03/25 07:13 0.25 MG Megestrol Acetate 100 mg BID PO 07/02/25 22:00 07/02/25 21:13 100 MG Pantoprazole Sodium 40 mg BID@0600,1700 PO 07/02/25 17:00 07/03/25 07:13 40 MG Examination General: NAD, AAO Chest: lung dia clear to auscultation Heart: RRR, no murmur Abdomen: Mildly distended, no tenderness to palpation, +BS; obese laboratory and microbiology Laboratory Tests 06/30/25 05:14 Test 06/30/25 05:14 Range/Units Serum Glucose 109 H 74-106 mg/dL Problem List/Assessment/Plan Problem List/Assessment/Plan Assessment finding: (1) Constipation (2) Metabolic encephalopathy (3) Cholelithiasis (4) Dementia (5) Abdominal pain Plan/recommendations Continue supportive care for now Okay to start anticoagulation Protonix 40 mg p.o. daily Carafate 1 g p.o. q.h.s. Ensure supplements MiraLax and Colace, lactulose prn Patient was started on Reglan and Megace by the hospitalist Monitor labs Patient is cleared for discharge. We will follow up the patient on outpatient basis. Plan discussed with the patient and his and a the attending physician they agreed upon. Plan discussed with: Patient Dietary Evaluation Review Comments: 1) Ensure high protein 240ml TID 2) Monitor PO intake, lab values, weight trend, and I/O Expected Outcomes/Goals: GI symptoms to improve To meet >75% estimated needs Fu 3-5 days JARON CARPIO RESIDENT Jul 03, 2025 17:48
== END 2025-07-03 18:20 | disposition home or self-care (01) | DRG 391 ==
LOC: ER 12:23 → EDBD 12:23 → OVERFLOW 21:08 → TELE-WESTW 07-01 13:40 → WEST WING 07-02 23:52
PROVIDERS: ADMIT Hospitalist; ATTEND Hospitalist
DX: K21.9 Gastro-esophageal reflux disease without esophagitis (principal); G93.41 Metabolic encephalopathy; N17.0 Acute kidney failure with tubular necrosis; I82.431 Acute embolism and thrombosis of right popliteal vein; I82.411 Acute embolism and thrombosis of right femoral vein; K80.20 Calculus of gallbladder without cholecystitis without obstruction; N18.9 Chronic kidney disease, unspecified; J44.9 Chronic obstructive pulmonary disease, unspecified; E11.22 Type 2 diabetes mellitus with diabetic chronic kidney disease; I12.9 Hypertensive chronic kidney disease with stage 1 through stage 4 chronic kidney disease, or unspecified chronic kidney disease; F02.80 Dementia in other diseases classified elsewhere, unspecified severity, without behavioral disturbance, psychotic disturbance, mood disturbance, and anxiety; G30.8 Other Alzheimer's disease; K59.00 Constipation, unspecified; R62.7 Adult failure to thrive; Z79.1 Long term (current) use of non-steroidal anti-inflammatories (NSAID); Z79.899 Other long term (current) drug therapy; Z86.711 Personal history of pulmonary embolism; Z68.23 Body mass index [BMI] 23.0-23.9, adult
CPT/HCPCS: 36415; 74176; 78582; 80048; 80053; 81001; 82270; 83690; 83880; 84484; 85014; 85018; 85025; 85379; 93005; 93306; 93970; 96361; 96374; 96375; 97163; G0378; J1756; J2405; J2470

== ENCOUNTER 2025-08-14 10:40 | Emergency (ER) | payer OTHER, MEDICAID ==
[~2025-08-14] VITALS: Ht 177.8 cm; Wt 72.7 kg
[~2025-08-14 10:40] MED LIST changes: +APIX5TAB PO; +FERR325T24 PO; +MEGE1SUS5 PO; +OLAN2.5T38 PO; +SUCR1TAB31 PO
[2025-08-14 10:44] VITALS: RESP 16; TEMP 98
--- NOTE | 2025-08-14 10:57 | ED.PDOC ---
History of Present Illness HPI Comments Discharge diagnosis from 07/03/25 Lower extremity DVT, adult failure to thrive, dementia syndrome, GERD HPI: 75 year old male presents to the emergency department via EMS with a chief complaint of ALOC onset today (08/14/25). Per EMS, they were called by S.O due to patient running away from home. Patient runs from home frequently, he was agitated, is power of noteman, wanted patient to be brought to ED. Upon ED arrival, patient is refusing care, vitals, refusing to answer questions, states "just want my to pick me up." No other symptoms or modifying factors present at this time. Initial Vitals Patient refuses vitals RR: 16 Temp: 98.0 F Past Medical history: CKF, COPD, HTN, DM, Dementia, DVT Past Surgical history: Denies Medications: Seroquel Social History: Denies smoking, ETOH, and drug use. Allergies: NKDA HPI: Poor Historian. REVIEW OF SYSTEMS: Patient is not cooperative and does not want to answer questions. Patient does not want to be in the hospital and wants to leave immediately. Patient refused that we evaluate him I asked him any questions. Review of system obtained from EMS only. Patient denies any pain anywhere in his body. PHYSICAL EXAM: General: -----no---acute distress, awake and alert. Head: normocephalic, atraumatic. Throat: Normal phonation. Eyes:, no erythema, no purulent discharge, no proptosis, no icterus. Lungs: no apparent respiratory distress, Able to speak in full sentences. From a distance, No audible wheezing, no rhonchi, no crackles. No stridors Abdomen: non distended, soft, Neuro: Awake, Alert, oriented to name, self, situation, follows commands. At baseline dementia Speech is normal. Makes eye contact. moves all four extremities. Face: no apparent facial droop. Ambulating in the ED independently. ED COURSE: DISCLAIMER: This medical document was created using an electronic medical record system with voice recognition software and computerized dictation system. Although this do cument has been carefully reviewed, there might still be some phonetic and typographical errors. Occasional wrong-word or "sound-alike" substitutions may have occurred due to the inherent limitations of voice recognition software. These areas are purely typographical due to imperfections of the software programs and do not reflect any compromise in the patient's medical care. Please read the chart carefully and recognize, using context, where these substitutions have occurred. Chief Complaint: ALOC Time Seen by MD: 10:50 Primary Care Provider: DEVIN Reviewed Notes: Medications, Allergies Allergies: Coded Allergies: NO KNOWN ALLERGIES (Unverified , 10/29/19) Home Meds Active Scripts Megestrol Acetate (Appetite) (Megestrol Acetate) 625 Mg/5 Ml [place], 2 ML PO DAILY, #90 ML Prov:AYLA RAMIREZ MD 07/03/25 Apixaban Base (ELIQUIS) 5 Mg Tab, 5 MG PO BID, #90 TAB 1 Refill Prov:AYLA RAMIREZ MD 07/03/25 Sucralfate (CARAFATE) 1 Gm Tab, 1 GM PO QID, #60 TAB Prov:AYLA RAMIREZ MD 07/03/25 Pantoprazole Sodium Sesquihydr (Pantoprazole Sodium Dr) 40 Mg Tab, 40 MG PO DAILY, #60 TAB Prov:AYLA RAMIREZ MD 07/03/25 Quetiapine Fumerate (Seroquel) 50 Mg Tab, 0.5 TAB PO BID, #30 TAB 2 Refills GIVE 1/2 tablet (25mg) twice a day with breakfast and dinner Prov:AYLA RAMIREZ MD 03/22/25 Losartan Potassium (Losartan Potassium) 50 Mg Tab, 50 MG PO DAILY, #60 TAB Prov:AYLA RAMIREZ MD 03/22/25 Donepezil Hydrochloride (Aricept) 5 Mg Tab, 5 MG PO QPM for 30 Days, #30 TAB Prov:AYLA RAMIREZ MD 03/22/25 Ibuprofen Micronized (Ibuprofen) 400 Mg Tab, 400 MG PO BIDP PRN for 15 Days, #30 TAB Prov:AYLA RAMIREZ MD 03/22/25 Amlodipine Besylate (Amlodipine Besylate) 10 Mg Tab, 1 TAB PO DAILY, #60 TAB Prov:AYLA RAMIREZ MD 03/22/25 Reported Medications Olanzapine (OLANZAPINE) 2.5 Mg Tab, 2.5 MG PO HS for 30 Days, MG 07/01/25 Ferrous Sulfate (Ferrous Sulfate) 325 Mg Tab, 325 MG PO DAILY for 30 Days, MG 07/01/25 Information Source: Patient, Emergency Med Personnel Mode of Arrival: EMS Severity: Moderate Timing: Hours Duration: Since onset Prehospital treatment: None Past Medical History PAST MEDICAL HISTORY: CKF, COPD, Dementia, DM, HTN Past Medical History (Other): DVT Surgical History: Denies all surgeries Family History Family History: Reviewed,noncontributory to illness, Family hx of DM Family History (Other): CKD Social History Smoker: Non-Smoker, Other Alcohol: Denies ETOH Use Drugs: Denies Drug Use Lives In: Home Was a procedure done? Was a procedure done?: No Differential Dx Considerations may include: Patient refused any evaluation and wanted to leave. His came and picked him up as [id number]. Patient has a history of dementia. X-Ray, Labs, Meds, VS Vital Signs Date Time Temp Pulse Resp B/P (MAP) Pulse Ox O2 Delivery O2 Flow Rate FiO2 08/14/25 10:44 98.0 16 98.0 Time of 1ST Reevaluation: 11:20 Reevaluation 1ST: Unchanged Time of 2ND Reevaluation: 11:32 (We contacted the who has [id number]. We informed her of the patient's wishes that he does not want us to evaluate him or treat him and he has no complaints and he requested that his to come pick him up immediately. The is the one who called for the patient to be transferred to the hospital because she is not able to take care of him.) Patient Education/Counseling: Diagnosis, Treatment Family Education/Counseling: No Family Present Departure 1 Departure Time of Disposition: 00:00 Impression: Primary Impression: Left against medical advice Disposition: LEFT AGAINST MEDICAL ADVICE Condition: Guarded Additional Instructions: Patient left against medical advice. Patient is seen ambulating with the his Discharged With: Spouse Critical Care Note Critical Care Time?: No I personally scribed for LAURIE AHUJA DO ([email or web address]) on 08/14/25 at 10:57. Electronically submitted by Isabelle Thakur ([email or web address]). I personally scribed for LAURIE AHUJA DO ([email or web address]) on 08/14/25 at 10:58. Electronically submitted by Isabelle Thakur ([email or web address]). I personally scribed for LAURIE AHUJA DO ([email or web address]) on 08/14/25 at 11:27. Electronically submitted by Isabelle Thakur ([email or web address]). LAURIE AHUJA DO Aug 14, 2025 10:57
== END 2025-08-14 12:57 | disposition left against medical advice (07) ==
LOC: ER 10:40 → EDUNIT# 10:40 → EDBD 10:40 → ER 12:57
DX: R40.4 Transient alteration of awareness (principal); I11.0 Hypertensive heart disease with heart failure; I50.9 Heart failure, unspecified; J44.9 Chronic obstructive pulmonary disease, unspecified; F03.90 Unspecified dementia, unspecified severity, without behavioral disturbance, psychotic disturbance, mood disturbance, and anxiety; K21.9 Gastro-esophageal reflux disease without esophagitis; Z79.899 Other long term (current) drug therapy; Z86.718 Personal history of other venous thrombosis and embolism

== ENCOUNTER 2025-08-14 16:43 | Inpatient (IN) | payer OTHER, MEDICAID ==
[~2025-08-14] VITALS: Ht 177.8 cm; Wt 72.7 kg
--- NOTE | 2025-08-14 17:27 | ECG ---
[facility] Test Date: 2025-08-14 Test Time: 16:53:04 Pat Name: TAMIA SILVESTRE Department: [facility] ED Patient ID: [id number] Room: Gender: M Clinical Scientist: : 1950 Requested By: LAURIE AHUJA Order Number: [id number] Reading MD: Measurements Intervals Hatch Rate: 91 P: 1 RI: 193 QRS: 33 QRSD: 78 T: 41 QT: 345 QTc: 425 Interpretive Statements Sinus rhythm Left ventricular hypertrophy Please click the below link to view image of tracing.
[2025-08-14 17:37] LABS: Hematocrit 35.9 % (41.0-53.0); Hemoglobin 11.7 g/dL (13.5-17.5); Mean Corpuscular Hemoglobin 28.1 pg (28.0-32.0); Mean Corpuscular Volume 86.2 fL (80.0-100.0); Nucleated Red Blood Cells % 0.1 %
[2025-08-14 17:58] LABS: Alanine Aminotransferase 17 U/L (7-40); Alkaline Phosphatase 65 U/L (46-116); Anion Gap 11 (5-15); BUN/Creatinine Ratio 13.2 (10.0-20.0); Blood Urea Nitrogen 20 mg/dL (9-23); Calcium 9.7 mg/dL (8.7-10.4); Carbon Dioxide 22 mmol/L (20-31); Glucose 84 mg/dL (74-106); Potassium 4.2 mmol/L (3.5-5.1); Sodium 143 mmol/L (136-145); Total Protein 8.1 g/dL (5.7-8.2)
[2025-08-14 17:59] LABS: Bilirubin, Total 0.6 mg/dL (0.2-1.0)
[2025-08-14 18:14] LABS: Albumin 4.8 g/dL (3.2-4.8); Chloride 110 mmol/L (98-107)
--- NOTE | 2025-08-14 18:47 | ED.PDOC ---
HPI Comments HPI: 75 year old male presents to the ED via EMS with a chief complaint of dizziness onset today. Patient was seen in ED about an hour prior to 2nd arrival, left AMA, was refusing treatment. Patient states he is currently experiencing dizziness. Poor historian. Denies fever, nausea, vomiting, diarrhea, abdominal pain, chest pain, shortness of breath. No other symptoms or modifying factors present at this time. Initial Vitals BP: 119/82 HR: 91 RR: 16 O2 Sat: 100% Temp: 98.7 F Past Medical history: CKF, COPD, HTN, DM, Dementia Past Surgical history: Denies Medications: Losartan, Amlodipine, Seroquel Social History: Denies smoking, ETOH, and drug use. Allergies: NKDA HPI: Poor Historian. Past Medical History: Past Surgical History: REVIEW OF SYSTEMS: CONSTITUTIONAL: Denies acute: fever, diaphoresis, chills, HEAD: Denies acute: headache, photophobia Eyes: Denies acute: Double vision, vision loss, eye pain, eye discharge. EARS: Denies acute: tinnitus, hearing loss, ear discharge, ear pain, THROAT: Denies acute: sore throat, swelling, difficulty swallowing , pain with swallo wing, change in voice. NECK: Denies acute: neck pain, neck swelling, stiff neck. HEART: Denies acute : chest pain, palpitations, LUNGS: Denies acute: SOB, wheezing, cough, hemoptysis ABDOMEN: Denies acute: abdominal pain, Nausea, Vomiting, diarrhea, melena , hematemesis, hematochezia SKIN: Denies acute: rash, redness, lesions, itchiness. EXTREMITIES: Denies acute: calf pain, numbness, tingling, weakness, denies pain in extremity. Denies acute: Low back pain. Neuro: Denies acute: focal neurological deficit, motor or sensory focal neurological deficit, tremors, seizure like activity, confusion, change in mental status, loss of bowel or bladder function, cauda equina like symptoms. : Denies acute: dysuria, hematuria, flank pain, increase in urinary frequency. PSYCH: Denies acute: hallucination, suicidal ideation, homicidal ideation. PHYSICAL EXAM: General: ----no----acute distress, awake and alert. Head: normocephalic, atraumatic. Neck: supple, trachea is midline, no swelling. Throat: Normal phonation. Eyes:, no erythema, no purulent discharge, no proptosis, no icterus. Heart: regular rate, regular rhythm, no significant murmur appreciated. Lungs: no apparent respiratory distress, Able to speak in full sentences. No wheezing, no rhonchi, no crackles. No stridors Clear to auscultation bilaterally. Abdomen: non tender to palpation, non distended, soft, no guarding, no rebound, + bowel sounds. Neuro: Awake, Alert, oriented to name, self, situation, follows commands GCS=15. Speech is normal. Skin: no petechia, no purpura, no cyanosis, non-pale, not jaundice. Lower extremities: --no - Pitting edema no deformity, no focal swelling, no calf TTP. Makes eye contact. moves all four extremities. Face: no apparent facial droop. Ambulating in the ED independently. ED COURSE: DISCLAIMER: This medical document was created using an electronic medical record system with voice recognition software and computerized dictation system. Although this document has been carefully reviewed, there might still be some phonetic and typographical errors. Occasional wrong-word or "sound-alike" substitutions may have occurred due to the inherent limitations of voice recognition software. These areas are purely typographical due to imperfections of the software programs and do not reflect any compromise in the patient's medical care. Please read the chart carefully and recognize, using context, where these substitutions have occurred. Chief Complaint: Dizziness Time Seen by MD: 17:04 Primary Care Provider: DEVIN Reviewed Notes: Nurses Notes, Allergies Allergies: Coded Allergies: NO KNOWN ALLERGIES (Unverified , 10/29/19) Home Meds Active Scripts Megestrol Acetate (Appetite) (Megestrol Acetate) 625 Mg/5 Ml [place], 2 ML PO DAILY, #90 ML Prov:AYLA RAMIREZ MD 07/03/25 Apixaban Base (ELIQUIS) 5 Mg Tab, 5 MG PO BID, #90 TAB 1 Refill Prov:AYLA RAMIREZ MD 07/03/25 Sucralfate (CARAFATE) 1 Gm Tab, 1 GM PO QID, #60 TAB Prov:AYLA RAMIREZ MD 07/03/25 Pantoprazole Sodium Sesquihydr (Pantoprazole Sodium Dr) 40 Mg Tab, 40 MG PO DAILY, #60 TAB Prov:AYLA RAMIREZ MD 07/03/25 Quetiapine Fumerate (Seroquel) 50 Mg Tab, 0.5 TAB PO BID, #30 TAB 2 Refills GIVE 1/2 tablet (25mg) twice a day with breakfast and dinner Prov:AYLA RAMIREZ MD 03/22/25 Losartan Potassium (Losartan Potassium) 50 Mg Tab, 50 MG PO DAILY, #60 TAB Prov:AYLA RAMIREZ MD 03/22/25 Donepezil Hydrochloride (Aricept) 5 Mg Tab, 5 MG PO QPM for 30 Days, #30 TAB Prov:AYLA RAMIREZ MD 03/22/25 Ibuprofen Micronized (Ibuprofen) 400 Mg Tab, 400 MG PO BIDP PRN for 15 Days, #30 TAB Prov:AYLA RAMIREZ MD 03/22/25 Amlodipine Besylate (Amlodipine Besylate) 10 Mg Tab, 1 TAB PO DAILY, #60 TAB Prov:AYLA RAMIREZ MD 03/22/25 Reported Medications Olanzapine (OLANZAPINE) 2.5 Mg Tab, 2.5 MG PO HS for 30 Days, MG 07/01/25 Ferrous Sulfate (Ferrous Sulfate) 325 Mg Tab, 325 MG PO DAILY for 30 Days, MG 07/01/25 Information Source: Patient, Emergency Med Personnel Mode of Arrival: EMS Past Medical History PAST MEDICAL HISTORY: CKF, COPD, Dementia, DM, HTN Surgical History: Denies all surgeries Family History Family History: Reviewed,noncontributory to illness, Family hx of DM Family History (Other): CKD Social History Smoker: Non-Smoker, Other Alcohol: Denies ETOH Use Drugs: Denies Drug Use Lives In: Home X-Ray, Labs, Meds, VS Vital Signs Date Time Temp Pulse Resp B/P (MAP) Pulse Ox O2 Delivery O2 Flow Rate FiO2 08/14/25 19:27 16 99 Room Air* 0 21 08/14/25 19:26 98.3 99 16 132/81 (98) 99 98.3 08/14/25 16:53 91 08/14/25 16:43 98.7 113 16 119/82 100 98.7 Lab Test 08/14/25 20:40 08/14/25 18:36 08/14/25 17:16 Range/Units Troponin I High Sensitivity Pending 65 *H 69 *H </=54 ng/L White Blood Count 5.1 4.4-10.8 10^3/uL Red Blood Count 4.17 L 4.5-5.90 10^6/uL Hemoglobin 11.7 L 13.5-17.5 g/dL Hematocrit 35.9 L 41.0-53.0 % Mean Corpuscular Volume 86.2 80.0-100.0 fL Mean Corpuscular Hemoglobin 28.1 28.0-32.0 pg Mean Corpuscular Hemoglobin Concent 32.6 32.0-36.0 g/dL Red Cell Distribution Width 16.2 H 11.8-14.3 % Platelet Count 221 140-450 10^3/uL Mean Platelet Volume 7.5 6.9-10.8 fL Neutrophils (%) (Auto) 62.5 37.0-80.0 % Lymphocytes (%) (Auto) 28.1 10.0-50.0 % Monocytes (%) (Auto) 6.9 0.0-12.0 % Eosinophils (%) (Auto) 1.6 0.0-7.0 % Basophils (%) (Auto) 0.9 0.0-2.0 % Neutrophils # (Auto) 3.2 1.6-8.6 10 ^3/uL Lymphocytes # (Auto) 1.4 0.4-5.4 10 ^3/uL Monocytes # (Auto) 0.4 0-1.3 10 ^3/uL Eosinophils # (Auto) 0.1 0-0.8 10 ^3/uL Basophils # (Auto) 0 0-0.2 10 ^3/uL Nucleated Red Blood Cells 0.1 % Sodium Level 143 136-145 mmol/L Potassium Level 4.2 3.5-5.1 mmol/L Chloride Level 110 H 98-107 mmol/L Carbon Dioxide Level 22 20-31 mmol/L Anion Gap 11 5-15 Blood Urea Nitrogen 20 9-23 mg/dL Creatinine 1.51 H 0.700-1.30 mg/dL Glomerular Filtration Rate Calc 48 >90 mL/min BUN/Creatinine Ratio 13.2 10.0-20.0 Serum Glucose 84 74-106 mg/dL Calcium Level 9.7 8.7-10.4 mg/dL Total Bilirubin 0.6 0.2-1.0 mg/dL Aspartate Amino Transferase (AST) 34 13-40 U/L Alanine Aminotransferase (ALT) 17 7-40 U/L Alkaline Phosphatase 65 46-116 U/L Total Protein 8.1 5.7-8.2 g/dL Albumin 4.8 3.2-4.8 g/dL Current Medications Medications (Trade) Dose Ordered Sig/Rticia Route Start Time Stop Time Status Last Admin Aspirin (Ecotrin Enteric Coated Tablet) 325 mg ONCE ONCE PO 08/14/25 18:30 08/14/25 18:58 DC 08/14/25 19:20 Time of 1ST Reevaluation: 20:58 (The case was discussed with the admitting team (HPI, physical exam, labs and diagnostic tests that were available at the time of disposition, ED course, treatment plan) on the phone. They agreed to evaluate the patient to their service and assume care of this patient from this point forward. Please refer to their final disposition. Nurse practitioner Bong) Patient Education/Counseling: Diagnosis, Treatment Family Education/Counseling: Diagnosis, Treatment Departure 1 Departure Time of Disposition: 18:47 Impression: Primary Impression: Elevated troponin Disposition: ADMITTED INPATIENT Admit to: Tele Condition: Guarded Discharged With: Self I personally scribed for LAURIE AHUJA DO ([email or web address]) on 08/14/25 at 19:23. Electronically submitted by Isablele Thakur ([email or web address]). LAURIE AHUJA DO Aug 14, 2025 18:47
[2025-08-14] MEDS: ASPirin-EC 325mg tab PO ONE (19:20)
[2025-08-14 19:27] VITALS: RESP 16; O2SAT 99
[2025-08-14] MEDS ORDERED: ONDANSETRON HCL 4 MG/2 ML VIAL IV PRN (22:15)
[2025-08-14] MEDS ORDERED: NITROGLYCERIN 0.4 MG SL TAB SL PRN (22:15)
[2025-08-14] MEDS ORDERED: ACETAMINOPHEN 325 MG TAB PO PRN (22:15)
[2025-08-14] MEDS ORDERED: MORPHINE SULFATE INJ 2 MG/ml SYRG IV PRN (22:15)
[2025-08-14] MEDS: DONEPEZIL HYDROCHLORIDE 5 MG TAB PO SCH (23:19)
[2025-08-15] VITALS (8 sets, daily range): BP systolic 125–150; BP diastolic 61–98; PULSE 66–77; RESP 16–18; TEMP 97.6–98.3; O2SAT 98–100
[2025-08-15] MEDS ORDERED: IPRATROPIUM BROM 0.5 MG/2.5ML INH SOL NEB PRN (00:45)
[2025-08-15] MEDS ORDERED: ALBUTEROL SULF 2.5 MG/0.5ML(0.5%) NEB SOLN NEB PRN (00:45)
--- NOTE | 2025-08-15 00:47 | DVHHP2 ---
LEIF WINTERS NURSE PRACTITIONER PER DIEM 08/15/25 0047: History of Present Illness Reason for Visit: Dizziness History of Present Illness Information in his HPI is limited due to the patient's cognitive status. Ac quired with the assistance of the patient's via telephone and ER provider. As per the patient's the patient had over exerted himself earlier in the day as he was having an episode of increased confusion. Initially went to the hospital and left against medical advice. Endorsed that he experienced dizziness and called EMS again prompting him to return to the emergency de partment. Patient's endorsed he is compliant with taking his home medications. During the emergency department evaluation patient completed blood work in which had troponins 69/65. When asked if the patient had pain, he grasps his left-sided chest and left arm. At this time there are no complaints of fevers, chills, shortness of breath, palpitations, syncope, nausea, vomiting, leg swelling, abdominal pain. 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 Smoke: 1 pack per day ALCOHOL: none Drugs: None Lives: with Family Review of Systems Constitutional: No: Fever, Chills, Sweats, Weakness, Malaise, Other Eyes: No: Pain, Vision change, Conjunctivae inflammation, Eyelid inflammation, Other, Redness ENT: No: Ear pain, Ear discharge, Nose pain, Nose discharge, Nose congestion, Mouth pain, Mouth swelling, Throat pain, Throat swelling, Other Respiratory: No: Cough, Dry, Shortness of breath, SOB with excertion, Wheezing, Hemoptysis, Pleuritic Pain, Sputum, Wheezing, Other Cardiovascular: Chest Pain, Lt Headedness; No: Palpitations, Orthopnea, Paroxysmal Noc. Dyspnea, Edema, Other Gastrointestinal: No: Nausea, Vomiting, Abdominal Pain, Diarrhea, Constipation, Melena, Hematochezia, Other Genitourinary: No Dysuria, No Frequency, No Incontinence, No Hematuria, No Retention, No Other Musculoskeletal: No: other, neck pain, shoulder pain, arm pain, back pain, hand pain, leg pain, foot pain Skin: No: Rash, Lesions, Jaundice, Bruising, Other Neurological: No: Weakness, Numbness, Incoordination, Change in speech, Confusion, Seizures, Other Allergies: Coded Allergies: NO KNOWN ALLERGIES (Unverified , 10/29/19) Medications Current Medications Medications Dose Ordered Sig/Tricia Route Start Time Stop Time Status Last Admin Dose Admin Acetaminophen 650 mg Q6HP PRN PO 08/14/25 22:15 Ondansetron HCl 4 mg Q4HP PRN IV 08/14/25 22:15 Nitroglycerin 0.4 mg Q5MINP PRN SL 08/14/25 22:15 Morphine Sulfate 2 mg Q30M PRN IV 08/14/25 22:15 Amlodipine Besylate 10 mg DAILY PO 08/15/25 10:00 Apixaban 5 mg BID PO 08/15/25 10:00 Donepezil HCl 10 mg QPM PO 08/14/25 22:15 Quetiapine Fumarate 25 mg BID PO 08/14/25 22:15 Pantoprazole Sodium 40 mg DAILY IV 08/15/25 10:00 Sucralfate 1 gm QID PO 08/15/25 06:00 Albuterol 2.5 mg Q4HPRN PRN NEB 08/15/25 00:45 UNV Ipratropium [place] 0.5 mg Q4HPRN PRN NEB 08/15/25 00:45 UNV Exam Vital Signs Vital Signs Date Time Temp Pulse Resp B/P (MAP) Pulse Ox O2 Delivery O2 Flow Rate FiO2 08/15/25 00:00 69 08/14/25 23:53 16 137/84 (101) 99 08/14/25 19:27 Room Air* 0 21 08/14/25 19:26 98.3 98.3 General Appearance: Alert (To self), Cooperative, No acute distress HEENT: Atraumatic, PERRLA Respiratory: Clear to auscultation, Normal air movement Cardiovascular: Regular rate, Normal S1, Normal S2 Abdominal: Normal bowel sounds, Soft, No tenderness Extremities: No edema Skin: No rashes Neuro: Normal speech, Strength at 5/5 X4 ext Psych/Mental Status: Mental status NL, Mood NL Labs/Xrays Labs Test 08/14/25 20:40 08/14/25 17:16 Range/Units Troponin I High Sensitivity 57 *H </=54 ng/L White Blood Count 5.1 4.4-10.8 10^3/uL Red Blood Count 4.17 L 4.5-5.90 10^6/uL Hemoglobin 11.7 L 13.5-17.5 g/dL Hematocrit 35.9 L 41.0-53.0 % Mean Corpuscular Volume 86.2 80.0-100.0 fL Mean Corpuscular Hemoglobin 28.1 28.0-32.0 pg Mean Corpuscular Hemoglobin Concent 32.6 32.0-36.0 g/dL Red Cell Distribution Width 16.2 H 11.8-14.3 % Platelet Count 221 140-450 10^3/uL Mean Platelet Volume 7.5 6.9-10.8 fL Neutrophils (%) (Auto) 62.5 37.0-80.0 % Lymphocytes (%) (Auto) 28.1 10.0-50.0 % Monocytes (%) (Auto) 6.9 0.0-12.0 % Eosinophils (%) (Auto) 1.6 0.0-7.0 % Basophils (%) (Auto) 0.9 0.0-2.0 % Neutrophils # (Auto) 3.2 1.6-8.6 10 ^3/uL Lymphocytes # (Auto) 1.4 0.4-5.4 10 ^3/uL Monocytes # (Auto) 0.4 0-1.3 10 ^3/uL Eosinophils # (Auto) 0.1 0-0.8 10 ^3/uL Basophils # (Auto) 0 0-0.2 10 ^3/uL Nucleated Red Blood Cells 0.1 % Sodium Level 143 136-145 mmol/L Potassium Level 4.2 3.5-5.1 mmol/L Chloride Level 110 H 98-107 mmol/L Carbon Dioxide Level 22 20-31 mmol/L Anion Gap 11 5-15 Blood Urea Nitrogen 20 9-23 mg/dL Creatinine 1.51 H 0.700-1.30 mg/dL Glomerular Filtration Rate Calc 48 >90 mL/min BUN/Creatinine Ratio 13.2 10.0-20.0 Serum Glucose 84 74-106 mg/dL Calcium Level 9.7 8.7-10.4 mg/dL Total Bilirubin 0.6 0.2-1.0 mg/dL Aspartate Amino Transferase (AST) 34 13-40 U/L Alanine Aminotransferase (ALT) 17 7-40 U/L Alkaline Phosphatase 65 46-116 U/L Total Protein 8.1 5.7-8.2 g/dL Albumin 4.8 3.2-4.8 g/dL SEPSIS Sepsis Screen Date sepsis recognized/suspect: Aug 14, 2025 Time Sepsis recognized/suspect: 1641 Recent Procedure: No On Antibiotic Therapy: No Respiratory Rate >20: No Heart Rate >90: Yes Temp<36 C (96.8 F) or >38.3 C: No SBP <90 or MAP <65 mmHG: No New Acute Mental Status Change: No Is the patient on CPAP, BIPAP,: No Physician Orders Medical Librarian (08/14/25 ) Urinalysis (08/14/25 17:06) Admit (08/14/25 22:08) Code Status (08/14/25 22:08) Vital Signs .PER UNIT PROTOCOL (08/14/25 22:08) Review Orders With Adm.Md (08/14/25 22:08) Encourage Activity As Tolerate (08/14/25 22:08) Consistent Carb(Ccho)Diabetes (08/15/25 Breakfast) Oxygen By Face Mask (08/14/25 22:08) Acetaminophen Tablet (Tylenol Tablet) (08/14/25 22:15) Notify Md Of Changes From Base (08/14/25 22:08) Advance Directive (08/14/25 22:08) Echo 2d Mode Cardiac Dop (08/14/25 22:08) Basic Metabolic Panel (08/15/25 05:00) Basic Metabolic Panel (08/16/25 05:00) Basic Metabolic Panel (08/17/25 05:00) Complete Blood Count (08/15/25 05:00) Complete Blood Count (08/16/25 05:00) Complete Blood Count (08/17/25 05:00) Patient Condition (08/14/25 22:08) Allergies (08/14/25 22:08) Ondansetron Hcl (Zofran) (08/14/25 22:15) Sequential Compression Device (08/14/25 ) Nitroglycerin Sublingual (Ntrostat Subli (08/14/25 22:15) Morphine Sulfate Injection (08/14/25 22:15) Stat Ekg For Chest Pain (08/14/25 22:08) Notify Md Of Changes From Base (08/14/25 22:08) Ladle Watcher For 24 Hours (08/14/25 22:08) Emergency Dysrhythmia Protocol (08/14/25 22:08) Rhythm Strips Once Every Shift (08/14/25 22:08) Oxygen By Nasal Cannula (08/14/25 22:08) Amlodipine Tablet (Norvasc Tablet) (08/15/25 10:00) Apixaban (Eliquis) (08/15/25 10:00) Donepezil Tablet (Aricept Tablet) (08/14/25 22:15) Quetiapine Fumarate Tablet (Seroquel Tab (08/14/25 22:15) * Cardiology Consult (08/14/25 22:08) Pantoprazole (Protonix) (08/15/25 10:00) Sucralfate Tab (Carafate Tab) (08/15/25 06:00) Chest Portable (08/15/25 00:32) Albuterol Medneb (Ventolin Medneb) (08/15/25 00:45) Ipratropium Medneb (Atrovent Medneb) (08/15/25 00:45) Vital Signs Date Time Temp Pulse Resp B/P (MAP) Pulse Ox O2 Delivery O2 Flow Rate FiO2 08/15/25 00:00 69 08/14/25 23:53 66 16 137/84 (101) 99 08/14/25 19:27 16 99 Room Air* 0 21 08/14/25 19:26 98.3 99 16 132/81 (98) 99 98.3 08/14/25 16:53 91 08/14/25 16:43 98.7 113 16 119/82 100 98.7 Laboratory Tests Test 08/14/25 17:16 White Blood Count 5.1 10^3/uL (4.4-10.8) Medications Medications Dose Ordered Sig/Tricia Route Start Time Stop Time Status Last Admin Dose Admin Aspirin 325 mg ONCE ONCE PO 08/14/25 18:30 08/14/25 18:58 DC 08/14/25 19:20 325 MG Assessment/Plan Assessment/Plan Elevated troponin Chest pain Hypertension COPD not in exacerbation Hx dvt on eliquis Hx PE Hx dementia Plan Admit telemetry Cardiac consult. Echocardiogram. Serial troponin. Continue home medication. Bronchodilators. As needed supplemental O2 to maintain oxygen saturation greater than 93%.. GI ppx protonix / DVT ppx on oral anticoagulation. Plan discussed with: Patient, Spouse My Orders Orders - LEIF WINTERS NP Procedure Category Date Status Time Admit ADMIT 08/14/25 Transmitted 22:08 Code Status CODE 08/14/25 Transmitted 22:08 Vital Signs JULIAN 08/14/25 In Process 22:08 Review Orders With JULIAN 08/14/25 In Process Adm. 22:08 Encourage Activity As JULIAN 08/14/25 In Process Tolerate 22:08 Consistent DIET 08/15/25 Transmitted Carb(Ccho)Diabetes Breakfast Oxygen By Face Mask RT 08/14/25 Transmitted 22:08 Acetaminophen Tablet PHA 08/14/25 In Process (Tylenol Tablet) 22:15 Notify Of Changes [facility] 08/14/25 In Process From Base 22:08 Advance Directive JULIAN 08/14/25 In Process 22:08 Echo 2d Mode Cardiac US 08/14/25 Logged DOP 22:08 Basic Metabolic Panel LAB 08/15/25 Logged 05:00 Basic Metabolic Panel LAB 08/16/25 Verified 05:00 Basic Metabolic Panel LAB 08/17/25 Verified 05:00 Complete Blood Count LAB 08/15/25 Logged 05:00 Complete Blood Count LAB 08/16/25 Verified 05:00 Complete Blood Count LAB 08/17/25 Verified 05:00 Patient Condition ORDERS 08/14/25 Transmitted 22:08 Allergies JULIAN 08/14/25 In Process 22:08 Ondansetron Hcl PHA 08/14/25 In Process (Zofran) 22:15 Sequential JULIAN 08/14/25 In Process Compression Device Nitroglycerin PHA 08/14/25 In Process Sublingual (Ntrostat 22:15 Morphine Sulfate PHA 08/14/25 In Process Injection 22:15 Stat Ekg For Chest JULIAN 08/14/25 In Process Pain 22:08 Notify Md Of Changes [facility] 08/14/25 In Process From Base 22:08 Ladle Watcher For [facility] 08/14/25 In Process 24 Hours 22:08 Emergency Dysrhythmia JULIAN 08/14/25 In Process Protocol 22:08 Rhythm Strips Once [facility] 08/14/25 In Process Every Shift 22:08 Oxygen By Nasal RT 08/14/25 Transmitted Cannula 22:08 Amlodipine Tablet PHA 08/15/25 In Process (Norvasc Tablet) 10:00 Apixaban (Eliquis) PHA 08/15/25 In Process 10:00 Donepezil Tablet PHA 08/14/25 In Process (Aricept Tablet) 22:15 Quetiapine Fumarate PHA 08/14/25 In Process Tablet (Seroquel Tab 22:15 * Cardiology Consult CONS 08/14/25 Transmitted 22:08 Pantoprazole PHA 08/15/25 In Process (Protonix) 10:00 Sucralfate Tab PHA 08/15/25 In Process (Carafate Tab) 06:00 Chest Portable XY 08/15/25 Logged 00:32 Albuterol Medneb PHA 08/15/25 Logged (Ventolin Medneb) 00:45 Ipratropium Medneb PHA 08/15/25 Logged (Atrovent Medneb) 00:45 Date of Service: Aug 15, 2025 Billing Provider: JAMES HENDRIX MD Common Visit Codes: NOT BILLABLE JAMES HENDRIX MD 08/15/25 1437: Review of Systems Allergies: Coded Allergies: NO KNOWN ALLERGIES (Unverified , 10/29/19) LEIF WINTERS NP Aug 15, 2025 00:47 JAMES HENDRIX MD Aug 15, 2025 14:37
[2025-08-15] MEDS: SUCRALFATE 1 GM TAB PO SCH (05:43)
[2025-08-15 05:59] LABS: Hematocrit 34.8 % (41.0-53.0); Hemoglobin 11.1 g/dL (13.5-17.5); Mean Corpuscular Hemoglobin 29.0 pg (28.0-32.0); Mean Corpuscular Volume 90.5 fL (80.0-100.0); Nucleated Red Blood Cells % 0.2 %; Potassium 3.8 mmol/L (3.5-5.1); Sodium 144 mmol/L (136-145)
[2025-08-15 06:00] LABS: Anion Gap 12 (5-15); Calcium 9.4 mg/dL (8.7-10.4); Carbon Dioxide 24 mmol/L (20-31); Chloride 108 mmol/L (98-107)
[2025-08-15 06:05] LABS: BUN/Creatinine Ratio 14.5 (10.0-20.0); Blood Urea Nitrogen 21 mg/dL (9-23); Glucose 82 mg/dL (74-106)
--- NOTE | 2025-08-15 09:14 | DVH ---
INDICATION: elevated troponin TECHNIQUE: Frontal view of the chest. COMPARISON: XR CHEST 2 VIEW on DOS: 06/20/25, XY CHEST XRAY 1 VIEW on DOS: 03/19/25, XR CHEST 1 VIEW on DOS: 12/04/24, XY CHEST XRAY 1 VIEW on DOS: 08/08/24, XY CHEST PORTABLE on DOS: 05/20/24 FINDINGS: . The heart and mediastinal contours are grossly unremarkable. There is no evidence of pleural disea se. The lungs are clear. The bony structures of the chest are intact without fracture. IMPRESSION: 1. No evidence of acute disease.
[2025-08-15] MEDS: APIXABAN 5 MG TAB PO SCH (10:30)
[2025-08-15] MEDS: PANTOPRAZOLE 40 MG/10 ML VIAL INJ IV SCH (10:30)
--- NOTE | 2025-08-15 14:37 | DVHDS2 ---
Discharge Summary Date of Admission Aug 14, 2025 at 22:08 Date of Discharge: Aug 15, 2025 Labs/Diagnostic Data: Laboratory Results Test 08/15/25 05:21 08/14/25 20:40 08/14/25 17:16 White Blood Count 3.9 10^3/uL (4.4-10.8) Red Blood Count 3.84 10^6/uL (4.5-5.90) Hemoglobin 11.1 g/dL (13.5-17.5) Hematocrit 34.8 % (41.0-53.0) Mean Corpuscular Volume 90.5 fL (80.0-100.0) Mean Corpuscular Hemoglobin 29.0 pg (28.0-32.0) Mean Corpuscular Hemoglobin Concent 32.0 g/dL (32.0-36.0) Red Cell Distribution Width 16.5 % (11.8-14.3) Platelet Count 184 10^3/uL (140-450) Mean Platelet Volume 7.4 fL (6.9-10.8) Neutrophils (%) (Auto) 51.7 % (37.0-80.0) Lymphocytes (%) (Auto) 31.9 % (10.0-50.0) Monocytes (%) (Auto) 9.9 % (0.0-12.0) Eosinophils (%) (Auto) 5.3 % (0.0-7.0) Basophils (%) (Auto) 1.2 % (0.0-2.0) Neutrophils # (Auto) 2.0 10 ^3/uL (1.6-8.6) Lymphocytes # (Auto) 1.2 10 ^3/uL (0.4-5.4) Monocytes # (Auto) 0.4 10 ^3/uL (0-1.3) Eosinophils # (Auto) 0.2 10 ^3/uL (0-0.8) Basophils # (Auto) 0 10 ^3/uL (0-0.2) Nucleated Red Blood Cells 0.2 % Sodium Level 144 mmol/L (136-145) Potassium Level 3.8 mmol/L (3.5-5.1) Chloride Level 108 mmol/L (98-107) Carbon Dioxide Level 24 mmol/L (20-31) Anion Gap 12 (5-15) Blood Urea Nitrogen 21 mg/dL (9-23) Creatinine 1.45 mg/dL (0.700-1.30) Glomerular Filtration Rate Calc 50 mL/min (>90) BUN/Creatinine Ratio 14.5 (10.0-20.0) Serum Glucose 82 mg/dL (74-106) Calcium Level 9.4 mg/dL (8.7-10.4) Troponin I High Sensitivity 57 ng/L (</=54) Total Bilirubin 0.6 mg/dL (0.2-1.0) Aspartate Amino Transferase (AST) 34 U/L (13-40) Alanine Aminotransferase (ALT) 17 U/L (7-40) Alkaline Phosphatase 65 U/L (46-116) Total Protein 8.1 g/dL (5.7-8.2) Albumin 4.8 g/dL (3.2-4.8) Other Laboratory Tests 08/15/25 05:21 Brief Hx & Hospital Course: 75-year-old male with a known history of advanced dementia, history of behavior disorder, history of DVT/PE on Eliquis, COPD, hypertension who was initially brought in with a confusional episode. She does have advanced dementia patient was found to have mildly elevated troponin. Cardiology evaluated the patient patient is cleared to be discharged with a close follow up as an outpatient with the PCP and Cardiology. Patient is currently is not cooperative waiting for his to pick him up as he does not want to stay. I recommend patient follow up as an outpatient with the PCP as well as Cardiology in 1-2 weeks. Patient was seen by me in the presence of charge nurse Vishnu. Condition at Discharge: Stable Final Diagnosis/Problems List Assessment/Plan Elevated troponin unspecified Hypertension COPD not in exacerbation Hx dvt on eliquis Hx PE Hx dementia Discharge Disposition: Home with Health Services SNF Discharge Will this Physician continue t: No Discharge Instruct/Medications Diet: Cardiac 2g Na,low cholest Activity: No Restrictions, As Tolerated Follow Up/Referral: Follow up with the PCP in 1-2 weeks Follow up with Dr. Davis in 1-2 weeks Medications: Please resume home medications. Continued Medications: Amlodipine Besylate (Amlodipine Besylate) 10 Mg Tab 1 TAB PO DAILY, #60 TAB Apixaban Base (Eliquis) 5 Mg Tab 5 MG PO BID, #90 TAB 1 Refill Donepezil Hydrochloride (Aricept) 5 Mg Tab 5 MG PO QPM for 30 Days, #30 TAB Ferrous Sulfate (Ferrous Sulfate) 325 Mg Tab 325 MG PO DAILY for 30 Days, MG Losartan Potassium (Losartan Potassium) 50 Mg Tab 50 MG PO DAILY, #60 TAB Megestrol Acetate (Appetite) (Megestrol Acetate) 625 Mg/5 Ml Shelby 2 ML PO DAILY, #90 ML Olanzapine (Olanzapine) 2.5 Mg Tab 2.5 MG PO HS for 30 Days, MG Pantoprazole Sodium Sesquihydr (Pantoprazole Sodium Dr) 40 Mg Tab 40 MG PO DAILY, #60 TAB Quetiapine Fumerate (Seroquel) 50 Mg Tab 0.5 TAB PO BID, #30 TAB 2 Refills GIVE 1/2 tablet (25mg) twice a day with breakfast and dinner Sucralfate (Carafate) 1 Gm Tab 1 GM PO QID, #60 TAB Discontinued Medications: Ibuprofen Micronized (Ibuprofen) 400 Mg Tab 400 MG PO BIDP PRN for 15 Days, #30 TAB Scheduled Amlodipine Besylate (Amlodipine Besylate), 1 TAB PO DAILY Apixaban Base (Eliquis), 5 MG PO BID Donepezil Hydrochloride (Aricept), 5 MG PO QPM Ferrous Sulfate (Ferrous Sulfate), 325 MG PO DAILY, (Reported) Losartan Potassium (Losartan Potassium), 50 MG PO DAILY Megestrol Acetate (Appetite) (Megestrol Acetate), 2 ML PO DAILY Olanzapine (Olanzapine), 2.5 MG PO HS, (Reported) Pantoprazole Sodium Sesquihydr (Pantoprazole Sodium Dr), 40 MG PO DAILY Quetiapine Fumerate (Seroquel), 0.5 TAB PO BID Sucralfate (Carafate), 1 GM PO QID Scheduled PRN Ibuprofen Micronized (Ibuprofen), 400 MG PO BIDP PRN Discharge Statement: "Patient was advised to return to the ER or call 911 if any headaches, dizziness, shortness of breath, chest pain, abdominal pain, bleeding, fevers, or worsening of medical condition. Patient was counseled about treatment plan, medications, possible side effects, patientverbalized understanding. All questions were answered to the best of my ability. This discharge took greater then 30 minutes in planning, reviewing documentation, counseling the patient, and discussing with other team members." ASSESSMENT ASSESSMENT Assessment Assessment/Plan Elevated troponin unspecified Hypertension COPD not in exacerbation Hx dvt on eliquis Hx PE Hx dementia Date of Service: Aug 15, 2025 Billing Provider: JAMES HENDRIX MD Common Visit Codes: NOT BILLABLE JAMES HENDRIX MD Aug 15, 2025 14:37
== END 2025-08-15 16:00 | disposition left against medical advice (07) | DRG 74 ==
LOC: EDBD 16:43 → ER 16:43 → OVERFLOW 22:08 → TELE-EAST 22:19 → OVERFLOW 22:19 → TELE-EAST 23:57
PROVIDERS: ADMIT Nurse Practitioner Family; ATTEND Nurse Practitioner Family
DX: G90.89 Other disorders of autonomic nervous system (principal); F03.918 Unspecified dementia, unspecified severity, with other behavioral disturbance; R07.89 Other chest pain; J44.9 Chronic obstructive pulmonary disease, unspecified; Z53.29 Procedure and treatment not carried out because of patient's decision for other reasons; F17.210 Nicotine dependence, cigarettes, uncomplicated; I50.9 Heart failure, unspecified; I12.9 Hypertensive chronic kidney disease with stage 1 through stage 4 chronic kidney disease, or unspecified chronic kidney disease; R79.89 Other specified abnormal findings of blood chemistry; N18.9 Chronic kidney disease, unspecified; E11.22 Type 2 diabetes mellitus with diabetic chronic kidney disease; Z79.01 Long term (current) use of anticoagulants; Z86.711 Personal history of pulmonary embolism; Z86.718 Personal history of other venous thrombosis and embolism; Z79.899 Other long term (current) drug therapy
CPT/HCPCS: 36415; 71045; 80048; 80053; 84484; 85025; 93005; G0378; J2470